=== PATIENT | female | born 1955 | race Caucasian/White ===

== ENCOUNTER → 2017-01-28 10:00 | Outpatient (CLI) | payer BC, SELFPAY ==
[2017-01-28 12:34] LABS: Absolute Lymphocyte Count 1.36 X10^3/ul (0.83-4.51); Absolute Neutrophil Count 2.6 X10^3/uL (2.0-7.7); Basophil# 0.05 X10^3/uL; Basophil% 1.1 % (0-1); Eosinophil# 0.09 X10^3/uL; Hematocrit 37.7 % (37-47); Hemoglobin 12.2 g/dl (12.0-15.0); Lymphocyte # 1.36 X10^3/ul (4.0); Lymphocyte % 30.2 % (19-41); Mean Corp Hgb Conc 32.4 g/gl (32-36); Mean Corpuscular Hgb 28.6 pg (27.0-32.0); Mean Corpuscular Volume 88.5 fL (81-99); Mean Platelet Vol. 11.8 fl (6.2-12.0); Monocyte# 0.37 X10^3/uL; Monocyte% 8.2 % (0-10); Neutrophil # 2.63 X10^3/uL (2.7-7.7); Neutrophil % 58.3 % (47-70); Platelet Count 242 K/mm3 (150-450); RBC Distribution Width CV 13.9 % (11.6-14.6); Red Blood Count 4.26 M/mm3 (4.2-5.4); White Blood Count 4.5 K/mm3 (4.4-11.0)
[2017-01-28 12:36] LABS: POSITIVE COUNT NO; POSITIVE DIFFERENTIAL NO; POSITIVE MORPHOLOGY NO
[2017-01-28 12:54] LABS: Anion Gap 6 (5-15); BUN 16 mg/dL (7-18); BUN/Creat Ratio 22.9 RATIO (10-20); Calcium,Total 8.8 mg/dL (8.5-10.1); Chloride 105 mmol/L (98-107); EST Glomerular Filtration Rate 91 mL/min (>60); Est Glom Filt Rate - Afr Amer 110 mL/min (>60); Glucose 88 mg/dL (70-110); Potassium 4.4 mmol/L (3.5-5.1); Sodium Level 139 mmol/L (136-145); Thyroid Stim Hormone (TSH) 0.61 uIU/mL (0.358-3.74)
--- OUTSIDE RECORDS SUMMARY | 2017-03-08 12:01 | XMS RPT_ITS ---
:1955 Author Organization OHIP Care Team Providers Name Role Phone LIONEL JENNINGS DPM Attending Unavailable PHYSICIAN, NONE Primary Care Unavailable LIONEL JENNINGS DPM Attending Unavailable MICHAELA SEAY~[id number], MICHAELA FELTON Referring Unavailable PHYSICIAN, NONE Primary Care Unavailable Micheal Martinez Attending Unavailable Micheal Martinez Primary Care Unavailable Lionel Jennings Attending Unavailable Micheal Martinez Primary Care Unavailable Micheal Martinez Attending Unavailable Micheal Martinez Primary Care Unavailable PROBLEMS PROBLEMS DATE TYPE CONDITION / CODE ATTENDING STATUS SOURCE 01/28/2017 Unknown R53.83 - Other Micheal Martinez Active [place] [facility] Community R53.83(ICD-10) Hospital Repository 01/28/2017 Unknown R06.00 - Dyspnea, Micheal Martinez Active [place] unspecified / Community R06.00(ICD-10) Hospital Repository 03/01/2017 Unknown Z98.890 - Other Lionel Jennings Active [facility] specified [facility]ced[facility] states / Repository Z98.890(ICD-10) 12/28/2016 Unknown ENCNTR SCREEN Micheal Martniez Active [facility] MAMMOGRAM FOR [facility] MALIGNANT NEOPLASM Hospital OF BREAST / Repository Z12.31(ICD-10) PROCEDURES PROCEDURES No Procedure Records FoundRESULTS RESULTS CBC W/DIFF, AUTOMATED Collected: 01/28/2017 Status: F Source: ARIK 9:05 AM [facility] REPOSITORY TYPE CODE TESTS RESULT OUT OF RANGE REFERENCE UNITS LAB L100.1000 Normal 4.4-11.0 K/mm3 WBC 4.5 LAB L100.1200 Normal 4.2-5.4 M/mm3 RBC 4.26 LAB L100.1300 Normal 12.0-15.0 g/dl HGB 12.2 LAB L100.1400 Normal 37-47 % HCT 37.7 LAB L100.1500 Normal 81-99 fL MCV 88.5 LAB L100.1600 Normal 27.0-32.0 pg MCH 28.6 LAB L100.1700 Normal 32-36 g/gl MCHC 32.4 LAB L100.1810 Normal 11.6-14.6 % RDW 13.9 CV LAB L100.1820 High 35.1-43.9 fl RDW 44.0 SD LAB L100.1900 Normal 150-450 K/mm3 PLT 242 LAB L100.2000 Normal 6.2-12.0 fl MPV 11.8 LAB L100.2100 Normal 47-70 % NEUT% 58.3 LAB L100.2200 Normal 19-41 % LY% 30.2 LAB L100.2300 Normal 0-10 % MONO% 8.2 LAB L100.2400 Normal 0-5 % EO% 2.0 LAB L100.2500 High 0-1 % BASO% 1.1 LAB L100.2550 Normal 0.0-0.9 % IM 0.200 GRAN % Result Comment: IG% - Immature Granulocytes (promyelocytes, myelocytes andmetamyelocytes) > 1% indicates that a LEFT SHIFT is Present. LAB L100.2620 Normal 2.0-7.7 X10 3/uL Absolute Neut 2.6 LAB L100.2720 Normal 0.83-4.51 X10 3/ul Absolute Lymph 1.36 Performed By: #### L100.0100 ####[facility] [address] [facility]. [place], [place], [id number] BASIC METABOLIC Collected: 01/28/2017 Status: F Source: ARIK PROFILE (BMP) 9:05 AM [facility] REPOSITORY TYPE CODE TESTS RESULT OUT OF RANGE REFERENCE UNITS LAB L501.0100 Normal 70-110 mg/dL GLU 88 LAB L501.1000 Normal 7-18 mg/dL BUN 16 LAB L501.1100 Normal 0.55-1.02 mg/dL 0.70 CREAT,SERUM Result Comment: The validity of the calculated GFR AND GFRAA in patients over70 years has not been determined. Clinical correlation isessential. LAB L501.1110 Normal >60 mL/min EST GFR 91 Result Comment: Non- GFR Calc LAB L501.1115 Normal >60 mL/min EST GFR - 110 AA Result Comment: GFR Calc LAB L501.1300 High 10-20 RATIO BUN/CRE 22.9 LAB L501.2200 Normal 8.5-10.1 mg/dL CA 8.8 LAB L501.5300 Normal 136-145 mmol/L NA 139 LAB L501.5600 Normal 3.5-5.1 mmol/L K 4.4 LAB L501.5900 Normal 98-107 mmol/L CL 105 LAB L501.6100 Normal 21.0-32.0 mmol/L CO2 28.0 LAB L501.6200 Normal 5-15 GAP 6 Performed By: #### L500.2500, L501.9520 ####[facility] [address] [place], [address] THYROID STIM HORMONE Collected: 01/28/2017 Status: F Source: ARIK (TSH) 9:05 AM [facility] REPOSITORY TYPE CODE TESTS RESULT OUT OF RANGE REFERENCE UNITS LAB L501.9520 Normal 0.358-3.74 uIU/mL TSH 0.61 Performed By: #### L500.2500, L501.9520 ####[facility] [address] [facility] [place], [place], [id number] RE-EVALUATION - PT (1) Observed: 12/29/2016 Status: F Source: ARIK 4:10 PM [facility] RE[facility]ITORY [facility] [address], [place] [phone] [phone] FaxREEVALUATION / MEDICARE RECERTIFICATIONPHYSICAL THERAPYMR#: [id number] Acct: [id number]: CHERYL CHEN Rep #: [id number]: 1955 61 From: Francisca Mendes MPTReferring DrYesi: Lionel Jennings DPM Status: REG RCRInsurance: Antonio Jennings,It has been my pleasure to treat CHERYL CHEN over the last 13 visits for S/P Lapidusfusion L September 03, 2016.Please see the progress note below for an update on the physical therapy plan of care!Subjective: Pt has worked the last 2 days and came in walking with a mjor antalgic gait. Ptreports that she is tired. Pt wants to see how she does over the next week or so and decide ifshe wants to do additional PT.Objective/Function: Gait: Pt walked into Dept with major antalgic gait on the R with increaseinsteppage gait and decrease stride length. R ankel AROM: 6 degrees DF and 30 degrees PF.Increase swelling noted on the lateral side of ptsR footPlanPlan: Pt to call in if she feels she needs PT. Pt to continue with her HEP for which we issueda green band to increase her exercises. Advised pt to possibly wearsupport stockings at workdue to the increase in swelling. Pt will call in regardless at 2 week mateo for DC if she feelsshe is all betterGoalsGoal 1:: I HEPGoal Time Frame: 4-6 WeeksGoal Progress: Goal MetGoal 2:: Increase R ankle AROM to 5 degrees DF and 50 degrees PFGoal Time Frame: 4-6 WeeksGoal Progress: ProgressingGoal 3:: Be able to walk with R great toe push off and equal stance time on B LE's.Goal Time Frame : 4-6 WeeksGoal Progress: ProgressingGoal 4:: No pain with gait or ADL'sGoal Time Frame: 4-6 WeeksGoal Progress: ProgressingAnticipated InterventionsPatient/Client Instruction: Educate patient on: Condition, Plan of CareFor the Purpose of:: To decrease pain, To decrease swelling/inflammation, To increase ROM, Toimprove nutrient delivery to tissue, To improve muscle performance and motor function, Toimprove ability to perform ADL's, To increase tolerance to activity/condition/position, Toimprove performance and independence with ADL's, To decrease level of supervision to performtasks, To improve ability of physical actions for home/community/work/leisure, To improve gaitand locomotor functions, To improve health of tissue, To decrease soft tissue restriction, Toincrease flexibility/ROMTherapeutic Exercise to Include: Strength training, Balance training, Flexibilty training, Gaitand locomotor training, Neuromotor development, Passive ROM, Active ROMFor the Purpose of:: To decrease pain, To decrease swelling/ inflammation, To increase ROM, Toimprove nutrient delivery to tissue, To improve muscle performance and motor function, Toimprove ability to perform ADL's, To increase tolerance to activity/condition/position, Toimprove performance and independence with ADL's , To decrease level of supervision to performtasks, To improve ability of physical actions for home/community/work/leisure, To improve gaitand locomotor functions, To improve health of tissue, To decrease soft tissue restriction, Toincrease flexibility/ ROM, To improve balance, To improve safety with gaitFunctional Training to Include: Gait trainingFor the Purpose of:: To improve gait and locomotor functions, To improve safety with gaitManual Therapy Techniques to Include: Passive ROM, Soft tissue mobilizationFor the Purpose of:: To increase ROM, To improve nutrient delivery to tissue, To improve muscleperformance and motor function, To improve ability of physical actions forhome/community/work/leisure, To improve gait and locomotor functions, To decrease soft tissuerestriction, To increase flexibility/ ROMThermo therapy (hot pack): YesUltrasound (thermal/non thermal): YesFor the Purpose of: : To decrease pain, To decrease swelling/inflammation, To increase ROM, Toimprove nutrient delivery to tissuePlease do not hesitate to contact me at [phone] by phone or if you havequestions or concerns regarding this new plan of care!Sincerely,Francisca Mendes<Electronically signed by Francisca Mendes MPT> 12/29/16 1610CC: Lionel Jennings DPM; Micheal Martinez DT: 12/28/16SSignedFor Medicare only, by signing this I certify the plan of care. Physicians Signature Date INITAL EVALUATION (1) Observed: 11/26/2016 Status: F Source: ARIK - PT 3:52 PM [facility] REPOSITORY [facility] [address] [facility]. [address] [place] [address] [phone] [phone] FaxREHABILITATION SERVICESINITIAL EVALUATIONMR#: [id number] Acct: [id number]: GUSTAVOCHERYL Anthony Rep #: [id number]: 1955 61 From: Francisca Mendes MPTReferring Dr.: Lionel Jennings DPEmmie Status: REG RCRInsurance: ANTHEMPatient's Visit InformationDARSTEFANYRaj CHEN is a 61 year old F referred to Physical Therapy by Lionel Jennings with adiagnosis of S/P Lapidus fusion L September 03, 2016.Date of Evaluation: 11/26/16Physical Therapist: Francisca Mendes- Visit PlanFrequency: 3x / WeekDuration: 4-6 WeeksPlan: 3X/ week for 4-6 weeks for R ankle and great toe AROM/PROM, gait training, strengthening,balance and propiroception with HEP and modalities PRN- SubjectiveSubjective: Pt had a bunion surgery and she was not allowed to be on it for 2 months at all.From 2 months post op till today she has been in the boot. said Tuesday to get our of theboot. He wants PT to get the swelling down. Surgery was 3 mo ago today. She had to keep herfoot up for 2 months. Her foot is so swollen she can not fit into her own shoes. said thatnasim can come out of her boot but she can not walk in other shoes. She is not noticing theswelling going down at all. She has a hard time sleeping cause the back ofher heel is swollenand it keeps her up at night. She works at [employer] for 8 hour shifts.- Pain R ankle painPain Intensity (Out of 10): 10Pain Intensity Range: 10- ObjectiveGait: Walks on R heel with no toe push off. R ankle AROM: -4 degrees DF and 32 degrees PF,INV 22 degrees, EV 2 degrees. Very little movement R great toe... Increased discomfort with Rgreat toe flex and extension PROM. Tight gastroc complex on the R. Increase general ankleswelling noted especially on the R lateral ankle- GoalsGoal 1:: I HEPGoal Time Frame: 4-6 WeeksGoal 2:: Increase R ankle AROM to 5 degrees DF and 50 degrees PFGoal Time Frame: 4-6 WeeksGoal 3:: Be able to walk with R great toe push off and equal stance time on B LE's.Goal Time Frame: 4-6 WeeksGoal 4:: No pain with gait or ADL'sGoal Time Frame: 4-6 Weeks- Rehabilitation PotentialRehabilitation Potential: Good- Anticipated InterventionsPatient/Client Instruction: Educate patient on: Condition, Plan of CareFor the Purpose of:: To decrease pain, To decrease swelling/inflammation, To increase ROM, Toimprove nutrient delivery to tissue, To improve muscle performance and motor function, Toimprove ability to perform ADL 's, To increase tolerance to activity/condition/position, Toimprove performance and independence with ADL's, To decrease level of supervision to performtasks, To improve ability of physical actions for home/community/work/leisure, To improve gaitand locomotor functions, To improve health of tissue, To decrease soft tissue restriction, Toincrease flexibility/ROMTherapeutic Exercise to Include: Strength training, Balance training, Flexibilty training, Gaitand locomotor training, Neuromotor development, Passive ROM, Active ROMFor the Purpose of:: To decrease pain, To decrease swelling/inflammation, To increase ROM, Toimprove nutrient delivery to tissue, To improve muscle performance and motor function, Toimprove ability to perform ADL's, To increase tolerance to activity/condition/position, Toimprove performance and independence with ADL's, To decrease level of supervision to performtasks, To improve ability of physical actions for home/community/work/ leisure, To improve gaitand locomotor functions, To improve health of tissue, To decrease soft tissue restriction, Toincrease flexibility/ROM, To improve balance, To improve safety with gaitFunctional Training to Include: Gait trainingFor the Purpose of:: To improve gait and locomotor functions, To improve safety with gaitManual Therapy Techniques to Include: Passive ROM, Soft tissue mobilizationFor the Purpose of:: To increase ROM, To improve nutrient delivery to tissue, To improve muscleperformance and motor function, To improve ability of physical actions forhome/community/work/leisure , To improve gait and locomotor functions, To decrease soft tissuerestriction, To increase flexibility/ROMThermo therapy (hot pack): YesUltrasound (thermal/non thermal): YesFor the Purpose of:: To decrease pain, To decrease swelling/inflammation, To increase ROM, Toimprove nutrient delivery to tissueThank you for the opportunity to evaluate your patient.For Medicare and Medicare HMO plans, please review the plan of care and approve it.It will need to be FAXED BACK to us at [phone] for Medicare purposes.Please let me know if there are questions or concerns regarding this plan of care.Physician Signature: Date: &lt ;Elect ronically signed by Francisca Mendes MPT> 11/26/16 1552CC: Lionel Jennings DPM; Micheal Martinez DT: 11/26/16SSignedFor Medicare only, by signing this I certify the plan of care. Physicians Signature Date SCREENING MAMM (CAD), Observed: 09/02/2016 Status: F Source: ARIK BILAT 2:23 PM [facility] [id number] [id number] 4dSCREENING MAMM (CAD), BILATMR#: [id number] Acct: [id number]: CHERYL CHEN Rep #: [id number]: 1955 F 61 From: Dexter Ferreira MDPCP: Micheal Martinez Status : REG CLIStudy: SCREENING MAMM (CAD), BILAT Date of Exam: 09/02/16Exam# [id number] Ordering Dr: Micheal Martinez MDMAMMOGRAPHY - BILATERAL SCREENINGREASON FOR EXAM: Female, 61 years old. Routine annual screeningexamination.PERTINENT HISTORY: Left breast swelling and bruising.TECHNIQUE: Digital bilateral breast raine (3D mammographic acquisition) inthe CC and MLO projections. 2-D mediolateral oblique (MLO) and craniocaudad(CC) views of both breasts were obtained. CAD: Full Field DigitalMammography with Computer Added Detection was performed.COMPARISON : Comparison is made with prior study dated April 08, 2015 andFebruary 2014. FINDINGS:Breast Composition: The breasts are heterogeneously dense, which mayobscure small masses.There are no dominant masses or suspicious calcifications.No other significant abnormalities are identified. There has been nosignificant change since the prior study. ORDER #: [id number] HPBI/SCREENING MAMM (CAD), BILATIMPRESSION:Stable bilateral screening mammogram. Yearly follow-up mammogramrecommended. (A) ASSESSMENT CATEGORY:BIRADS Category 1: Negative. A letter regarding these results will besent to the patient by the facility within 30 days.Approximately 10% of breast cancers are not detected by mammography. Anormal mammogram should not delay biopsy of a clinically suspiciousabnormality.[id number] Signed:Dexter Ferreira MD at 16:06 Brittani [phone], Service support , MR: Micheal Martinez Vp Software Engineering:Signed CBC Collected: 08/24/2016 Status: F Source: [facility] 3:35 PM [facility] REPOSITORY TYPE CODE TESTS RESULT OUT OF REFERENCE UNITS RANGE LAB WBC(LOINC) 4.60-10.80 10 3/mcL WBC 6.70 LAB RBCCT(LOINC 4.20-5.40 10 6/mcL ) RBC 4.63 LAB HGB(LOINC) 12.0-16.0 G/dL Hgb 12.9 LAB HCT(LOINC) 37.0-47.0 % Hct 39.3 LAB MCV(LOINC) 80.0-94.0 fL MCV 85.0 LAB MCH(LOINC) 27.0-31.2 pg MCH 27.9 LAB MCHC(LOINC) Low 33.0-37.0 G/dL MCHC 32.9 LAB RDW(LOINC) 11.5-14.5 % RDW 14.1 LAB PLT(LOINC) 130-400 10 3/mcL Platelet 234 LAB MPV(LOINC) 7.4-10.4 fL MPV 10.3 Performed By: #### CBC, ADIFF, ANEU, BMP, GFR ####[facility] [address] [place] [address] .AUTO DIFF Collected: 08/24/2016 Status: F Source: [facility] 3:35 PM [facility] REPOSITORY TYPE CODE TESTS RESULT OUT OF REFERENCE UNITS RANGE LAB HARRY(LOINC) 37.0-80.0 % Neutrophil % 62.4 LAB LYM(LOINC) 10.0-50.0 % Lymphocyte % 28.6 LAB MON(LOINC) 1.7-13.0 % Monocyte % 6.7 LAB EO(LOINC) 0.0-7.0 % Eosinophil % 1.4 LAB BAS(LOINC) 0.0-2.5 % Basophil % 0.9 LAB ABLYM(LOIN 0.77-3.85 10 3/mcL C) Lymphocyte, 1.90 Absolute LAB ENRRIQUE(LOINC 0.15-1.00 10 3/mcL ) Monocyte, 0.40 Absolute LAB AEOS(LOINC 0.00-0.40 10 3/mcL ) Eosinophil, 0.10 Absolute LAB ABAS(LOINC 0.00-0.19 10 3/mcL ) Basophil, 0.10 Absolute Performed By: #### CBC, ADIFF, ANEU, BMP, GFR ####[facility] [address] [place], [place] [address] .NEUABS Collected: 08/24/2016 Status: F Source: [facility] 3:35 PM [facility] REPOSITORY TYPE CODE TESTS RESULT OUT OF REFERENCE UNITS RANGE LAB ANEU(LOINC) 2.85-6.16 10 3/mcL 4.10 Neutrophil, Absolute Performed By: #### CBC, ADIFF, ANEU, BMP, GFR ####[facility] [address] [place], [place] [address] BMP Collected: 08/24/2016 Status: F Source: [facility] 3:35 PM [facility] REPOSITORY TYPE CODE TESTS RESULT OUT OF REFERENCE UNITS RANGE LAB 1547-9 70-105 mg/dL GLUCOSE 90 LAB NA(LOINC) 136-146 mEq/L Sodium Level 141 LAB K(LOINC) 3.5-5.1 mEq/L Potassium Level 4.6 LAB CL(LOINC) 98-107 mEq/L Chloride 104 LAB CO2(LOINC) 22-29 mEq/L CO2 28 LAB EBAL(LOINC mEq/L ) Electrolyte 9.0 Balance LAB BUN(LOINC) 7.0-18.0 mg/dL BUN 13.2 LAB CRE(LOINC) 0.6-1.2 mg/dL Creatinine Lvl 0.9 (s) LAB BC(LOINC) 7-27 ratio BUN/Creatinine 15 Ratio LAB CA(LOINC) 8.4-10.2 mg/dL Calcium Lvl 9.4 Performed By: #### CBC, ADIFF, ANEU, BMP, GFR ####[facility] [address] [place], [place] [address] GFR Collected: 08/24/2016 Status: F Source: [place] 3:35 PM [facility] REPOSITORY TYPE CODE TESTS RESULT OUT OF REFERENCE UNITS RANGE LAB GFRAA(LOINC ml/min/1.73 ) GFR 83 sqm Result Comment: GFR Population mean for , Non- Americans Ages 20-90=317 mL/min/1.73 sq.m. Ages 30-03=015 mL/min/1.73 sq.m. Ages 40-49=99 mL/min/1.73 sq.m. Ages 50-59=93 mL/min/1.73 sq.m. Ages 60-69=85 mL/min/1.73 sq.m. Ages 70+=75 mL/min/1.73 sq.m.Chronic Kidney Disease: Less than 60 mL/min/1.73 square metersEnd Stage Renal Disease: Less than 15 mL/min/1.73 square meters LAB GFRNO(LOINC) ml/min/1.73sqm GFR Non- >60 Result Comment: GFR Population mean for , Non- Americans Ages 20-54=188 mL/min/1.73 sq.m. Ages 30-55=365 mL/min/1.73 sq.m. Ages 40-49=99 mL/min/1.73 sq.m. Ages 50-59=93 mL/min/1.73 sq.m. Ages 60-69=85 mL/min/1.73 sq.m. Ages 70+=75 mL/min/1.73 sq.m.Chronic Kidney Disease: Less than 60 mL/min/1.73 square metersEnd Stage Renal Disease: Less than 15 mL/min/1.73 square meters Performed By: #### CBC, ADIFF, ANEU, BMP, GFR ####[facility] [address] [place], [place] [address] ALLERGIES ALLERGIES DATE TYPE / CODE NAME / CODE REACTION SEVERITY SOURCE 09/23/2014 Drug No Known Unknown [facility] Allergy/4160 Allergies/F00 Hospital 32944(SNOMED 3091577(RXNOR Repository CT) M) 09/23/2014 Drug No Known [facility] Allergy/4160 Allergies/F00 Hospital 85352(SNOMED 3093140(RXNOR Repository CT) M) ENCOUNTERS ENCOUNTERS ADMIT/DISCHARGE ACCOUNT NUMBER ADMITTING ENCOUNTER LOCATION SOURCE CLASS 01/28/2017 [id number] Ambulatory [place] [facility] ding:BFHLAB Repository 11/26/2016/12/29/19 [id number] Amb[place] [facility] ding:PT Repository 09/03/2016/09/04/19 [id number] Ambulatory BBuilding:OS Beat[facility] [address] [place] [address]: Health 0001Bed: B Foundation Repository 09/02/2016 [id number] Ambulatory [place] [facility] ding:BI Repository 08/24/2016/08/25/19 [id number] Ambulatory [place] [address] ding:OPRS Foundation Repository PAYERS PAYERS ENCOUNTER GUARANTOR PAYER SUBSCRIBER SOURCE 01/28/2017 Cheryl E Primary Cheryl E [place] [id number] Insurance:ANTHEMPolicy HintonDOB[facility] Number: [id number] [id number] Repository [address]Rvw: (330) Date:4349-20-26XW [phone] () [id number] [place] [address] 274[address]HP: 01/28/2017 Secondary NOT GIVENUNK [place] Insurance:SELF PAY [facility] Number: Effective Repository Date:2017-01-28 11/26/2016 CHERYL E Primary CHERYL E [place] [id number] Insurance:ANTHEMPolicy HINTONDOB: [facility] Number: [id number], [place] [id number] Repository [address]Eqz: (330) Date:7972-87-97TL [phone] () [id number] [place] [address] 08[address]HD: 09/03/2016 CHERYL E Primary CHERYL E [facility] HINTONDOB: Insurance:ANTHEM BLUE HINTONDOB: [facility] [id number] [facility] [id number] Repository SAGE Number: [address], [place] [id number] [place], [place] [address]Yeh: (000) Date:2016-09-01 55[address]Tsb: () [id number] [id number] Name:BPO BOX (HP)Tel: [phone], [place] [phone] () 796[address]XI: 09/02/2016 CHERYL E Primary CHERYL E [place] [id number] [facility] HINTONDOB: [facility] SAGE Number: [id number], [place] [id number] Repository [address]Gby: (330) Date:0972-63-71JL [phone] () [address] [place] [address]SS: 08/24/2016 CHERYL E Primary CHERYL E [facility] HINTONDOB: Insurance:[facility] HINTONDOB: [facility] [id number] [facility] [facility] [id number] Repository SAGE Number: [address], [place] [id number] [place], [place] [address]Fsc: (000) Date:2016-08-21 15484Fcs: () [id number] 000-0000 Name:BPO BOX (HP)Tel: [phone], [place] [phone] () [address]HR:
== END ==
PROVIDERS: Family Provider Family Medicine; PCP Family Medicine; Visit Provider Family Medicine
DX: R06.00 Dyspnea, unspecified (principal); R53.83 Other fatigue
CPT/HCPCS: 36415; 80048; 84443; 85025

== ENCOUNTER 2017-09-22 12:19 | Inpatient (IN) | payer BC, SELFPAY ==
[2017-09-22] VITALS (31 sets, daily range): BP systolic 83–126; BP diastolic 46–85; PULSE 57–158; RESP 14–24; TEMP 36.6–37.3; O2SAT 95–99; BMI 23.3; BMI 23.4; BMI 23.8
[2017-09-22 12:56] LABS: Absolute Lymphocyte Count 2.49 X10^3/ul (0.83-4.51); Absolute Neutrophil Count 6.3 X10^3/uL (2.0-7.7); Basophil# 0.05 X10^3/uL; Basophil% 0.5 % (0-1); Eosinophil# 0.06 X10^3/uL; Eosinophils% 0.6 % (0-5); Hematocrit 45.2 % (37-47); Lymphocyte # 2.49 X10^3/ul (4.0); Mean Corp Hgb Conc 33.2 g/gl (32-36); Mean Corpuscular Hgb 29.1 pg (27.0-32.0); Mean Corpuscular Volume 87.6 fL (81-99); Mean Platelet Vol. 11.1 fl (6.2-12.0); Monocyte# 0.66 X10^3/uL; Monocyte% 6.9 % (0-10); Neutrophil # 6.31 X10^3/uL (2.7-7.7); Neutrophil % 65.8 % (47-70); POSITIVE COUNT NO; POSITIVE DIFFERENTIAL NO; POSITIVE MORPHOLOGY NO; Platelet Count 317 K/mm3 (150-450); RBC Distribution Width CV 13.7 % (11.6-14.6); Red Blood Count 5.16 M/mm3 (4.2-5.4); White Blood Count 9.6 K/mm3 (4.4-11.0)
[2017-09-22 13:08] LABS: Anion Gap 10 (5-15); BUN 15 mg/dL (7-18); BUN/Creat Ratio 18.1 RATIO (10-20); Calcium,Total 9.1 mg/dL (8.5-10.1); Chloride 104 mmol/L (98-107); Creatinine, Serum 0.83 mg/dL (0.55-1.02); EST Glomerular Filtration Rate 75 mL/min (>60); Est Glom Filt Rate - Afr Amer 90 mL/min (>60); Estimated Creatinine Clearance 67.48 ml/min; Glucose 93 mg/dL (74-106); Potassium 3.8 mmol/L (3.5-5.1); Sodium Level 141 mmol/L (136-145)
--- NOTE | 2017-09-22 13:31 | ED.VISSUMM ---
- ER Visit Summary Date of Service: 09/22/17 Chief Complaint: Palpitations History of Present Illness: The patient is a 62 F with palpitations for the past 2-3 days, at least 48 hours straight. She has some intermittent chest pain with this. She was seen by her PCP who found that she is in a flutter. Patient does not feel palpitations, however she does feel jittery. Physical Examination: Not appear in acute distress. Moist mucous membranes, no obvious facial deformity No C-spine tenderness supple neck. Regular rate and tachycardic without any obvious murmurs Clear lungs bilaterally speaking in full sentences without any obvious respiratory distress Abdomen soft and nontender no guarding or rebound Moves all extremities without any difficulty or pain. Skin does not show any obvious rashes or lesions, no trauma. Alert oriented ?3 with no gross focal deficit Emergency Department Course and Treatment: She had a slight troponin leak, this is likely secondary to heart rate. I discussed with cardiology, beta-france were given however this did not improve the heart rate, Cardizem was then given and a Cardizem drip will be started. Patient will be admitted for further workup. I cannot cardiovert her, her symptoms have been ongoing for 2-3 days I am worried about an atrial clot. I will let the hospital decide between low molecular weight heparin and regular heparin. Admit in guarded condition Impression: Atrial flutter. This note was generated with [employer] dictation software. It may contain incorrect words, spelling, and punctuation that were not noted in review of the chart prior to signing ED Disposition - Plan for ED Patient: Chief Complaint: Palpitations Referrals: Micheal Martinez MD [Primary Care Provider] -
--- NOTE | 2017-09-22 14:02 | NURSING ---
DR NEREIDA HU
--- NOTE | 2017-09-22 14:04 | NURSING ---
DR PADRON IN ER
--- NOTE | 2017-09-22 14:21 | NURSING ---
UNABLE TO PULL OLD EKGS, MUSE IS DOWN
--- NOTE | 2017-09-22 14:23 | NURSING ---
PCU AFLUTTER CORNICI
--- NOTE | 2017-09-22 14:29 | NURSING ---
Lul notified patient may transfer to PCU.
--- NOTE | 2017-09-22 14:52 | PCM.HP.STD ---
Problem List (1) Paroxysmal atrial fibrillation Status: Chronic (2) H/O tubal ligation Status: Resolved (3) Nonrheumatic mitral valve disorder Status: Chronic (4) Tricuspid valve disorder Status: Chronic (5) History of aortic valve disorder Status: Chronic (6) Sleep apnea Status: Chronic (7) Parkinson's disease Status: Chronic (8) Atrial fibrillation with RVR Status: Acute History of Present Illness Date of Admission: 09/22/17 Chief Complaint: Chest pain and A. fib The patient is a 62 year old F with history of sleep apnea on CPAP, Parkinson disease and history of paroxysmal A. fib, widely 1 episode in September 2014 for which she was admitted came to ER for flutter wave sensation for 3 days. Initially, she felt dizzy, lightheaded, strange and chest pain 2 times each lasted for about half an hour on past 2 days and when she went to see her PCP she was found to have A. fib with RVR with heart rate in 160/min. She described chest pain on right-sided, sharp, localized without acid shortness of breath or relation with activity. She had echo done during first episode of A. fib on September 2014 which reported as EF 60% with normal LV systolic function, normal right and left atria. Normal RV size and systolic function. PSP 26 mmHg with 1+ TR. Mild MR, mild AR. The patient was started on IV Cardizem drip in the ER but she dropped her blood pressure in 90s. IV Cardizem drip was held and patient is on 1 L IV normal saline bolus. Digoxin 0.5 mg IV ordered. [] Past Medical History Past Medical History (Chronic Problems): Chronic Problems Paroxysmal atrial fibrillation (Chronic) Nonrheumatic mitral valve disorder (Chronic) Tricuspid valve disorder (Chronic) History of aortic valve disorder (Chronic) Sleep apnea (Chronic) Parkinson's disease (Chronic) Medical History: Medical History Nonrheumatic mitral valve disorder (Chronic) I34.9 Tricuspid valve disorder (Chronic) I07.9 History of aortic valve disorder (Chronic) Z86.79 New onset atrial fibrillation (Acute) I48.91 Allergies detergent Adverse Reaction (Severe, Uncoded 09/22/17 12:20) Respiratory problems Home Medications: Ambulatory Orders Medication Instructions Recorded rasagiline 0.5 mg tablet 0.5 mg PO DAILY 08/24/17 Aspirin 325 mg PO DAILY@0800 09/22/17 Carbidopa/Levodopa [Rytary ER 1 cap PO TID 09/22/17 23.75 mg-95 mg Cap] Surgical History: Surgical History (Last Updated 08/24/17 @ 16:07 by Brittaney Chambers) H/O tubal ligation (Resolved) Z98.51 Surgical History: - - Tubal ligation. 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 Father Hypertension History Items: - - Atrial fibrillation. Paternal Family History: Family History (Last Updated 08/24/17 @ 15:48 by Brittaney Chambers) Mother No problems noted. Father Hypertension History Items: Heart Disease, Hypertension Review of Systems Constitutional: Denies: Chills, Fever, Weight Change HEENT: Denies: Head Aches, Sinus Congestion, Sinus Drainage Cardiovascular: Reports: Chest Pain, Light Headedness, Palpitations Respiratory: Denies: Cough, Shortness of breath at rest, Sputum production Gastrointestinal: Denies: Abdominal Pain, Nausea, Vomiting Genitourinary: Denies: Dysuria Musculoskeletal: Denies: Joint Pain, Joint Tenderness Skin: Denies: Rash, Wounds Neurological: Reports: Balance problems. Denies: Focal weakness, Numbness, Tingling Psychiatric: Denies: Anxiety, Depression, Homicidal Ideations, Suicidal Ideations Hematologic/ Lymphatic: Denies: Easy Bruising, Easy Bleeding VTE Information - Inpt Only VTE Present on Admission: No VTE Mechan Device Prophylaxis: None VTE Pharm Prophylaxis ordered?: Yes Patient Problems: Active and Suspected Problems Atrial fibrillation with RVR (Acute) - Physical Exam General: Alert, Oriented x3, Cooperative HEENT: Atraumatic, PERRLA, EOMI, Normocephalic Neck: Supple, No JVD, Negative Carotid Bruits Lungs: Clear to auscultation, Normal air movement Cardiovascular: Regular rate, No murmurs, Irregular Rate Abdomen: Bowel Sounds Present, Soft, Non Tender, Non-Distended Extremities: No edema, Capillary Refill Less than 3 Seconds Skin: No rashes, No breakdown Musculoskeletal: No Tenderness to Palpation of Joints or Extremities, Arthritic Changes Neurological: Cranial nerves II-XII grossly intact Psych/Mental Status: Normal Affect, Appropriate Vital Signs Temp Pulse Resp BP Pulse Ox 97.9 F 158 H 21 H 91/65 98 09/22/17 12:20 09/22/17 12:22 09/22/17 12:20 09/22/17 14:15 09/22/17 12:20 Assessment/Plan All Active Problems (Last Updated 08/24/17 @ 16:07 by Brittaney Chambers) Atrial fibrillation with RVR (Acute) H/O tubal ligation (Resolved) The patient is a 62 year old F with history of sleep apnea on CPAP, Parkinson disease and history of paroxysmal A. fib, widely 1 episode in September 2014 for which she was admitted came to ER for flutter wave sensation for 3 days. Initially, she felt dizzy, lightheaded and chest pain 2 times each lasted for about half an hour on past 2 days and when she went to see her PCP she was found to have A. fib with RVR with heart rate in 160/min. She described chest pain on right-sided, sharp, localized without acid shortness of breath or relation with activity. She had echo done during first episode of A. fib on September 2014 which reported as EF 60% with normal LV systolic function, normal right and left atria. Normal RV size and systolic function. PSP 26 mmHg with 1+ TR. Mild MR, mild AR. The patient was started on IV Cardizem drip in the ER but she dropped her blood pressure in 90s. IV Cardizem drip was held and patient is on 1 L IV normal saline bolus. Digoxin 0.5 mg IV ordered. [] 1. Paroxysmal A. fib with RVR with hypotension: She has risk factors of obstructive sleep apnea for which she is compliant with CPAP. [id number] score is 1 of being female. She is being admitted on the stepdown unit. Cardiac monitoring. Cardiology is consulted. Cycle cardiac enzymes. Digoxin 0.5 mg IV 1 dose given. At further for cardiology input. IV fluid normal saline 1 L bolus and then 150 mL/h. Monitor input and output. On Lovenox 1 mg/kg body weight 2. Obstructive sleep apnea on CPAP: Maintain CPAP at night, she is not sure of exact pressure of CPAP 3. Parkinson disease: Continue home medications including Sinemet and rasagiline 4. Mild valvular heart disease: As per the echo she has mild MR, mild AR and mild TR. 5. DVT prophylaxis: On therapeutic dose of enoxaparin 1 mg/kg body weight This note was generated with [employer] dictation software. Every effort was made to ensure accuracy, however computerized x ray service engineer mistakes may persist. Code Visit Inpatient E&M: 99202 Init Hosp L3
[2017-09-22] MEDS: Digoxin 250 MCG/ML Ampul 500 MCG IV (15:15)
[2017-09-22] MEDS: 0.9% Normal Saline 1,000 ML 150 ML IV (15:25)
[2017-09-22] MEDS: CLARIFY ORDER NOTE (15:56)
[2017-09-22] MEDS: Metoprolol Tartrate 5 MG/5 ML Vial 2.5 MG IV ×2 (16:23→16:48)
[2017-09-22] MEDS: Enoxaparin 80 MG/0.8 ML Syringe 70 MG SC (16:23)
[2017-09-22 16:43] LABS: AST(SGOT) 11 U/L (15-37); Alanine Aminotransfer ALT/SGPT 8 U/L (13-56); Alkaline Phosphatase 88 U/L (45-117); Bilirubin, Direct 0.11 mg/dL (0.00-0.30); Globulin 4.2 g/dL (2.2-4.2); Magnesium 2.3 mg/dL (1.6-2.6); Protein, Total 8.2 g/dL (6.4-8.2)
--- NOTE | 2017-09-22 17:05 | PCM.CONS.C ---
Reason for Consult Date of Consultation: 09/22/17 Reason for Consultation: Palpitations. History of Present Illness: The patient is a 62 year old F with history of sleep apnea on CPAP, Parkinson disease and history of paroxysmal A. fib, who presented to her primary physician's office complaining of palpitations. An echocardiogram was done and she was noted to be in atrial flutter with a rapid ventricular response rate. She was sent to the emergency room and an EKG was done there which confirmed that as well. She was given intravenous beta-france and Cardizem with some reduction in her blood pressure. She was being admitted for cardiology to follow-up. She previously had no history of obstructive coronary disease but she did have at least one episode of atrial fibrillation flutter in 2015. An echocardiogram that was performed this year demonstrated preserved ejection fraction with mild mitral tricuspid and aortic regurgitation. She denies any chest pain or paroxysmal nocturnal dyspnea no pedal edema. She has really been on no medications. Past Medical History Allergies/Adverse Reactions: Allergies detergent Adverse Reaction (Severe, Uncoded 09/22/17 12:20) Respiratory problems Home Medications: Ambulatory Orders Medication Instructions Recorded rasagiline 0.5 mg tablet 0.5 mg PO DAILY 08/24/17 Aspirin 325 mg PO DAILY@0800 09/22/17 Carbidopa/Levodopa [Rytary ER 1 cap PO TID 09/22/17 23.75 mg-95 mg Cap] Past Medical History (Chronic Problems): Chronic Problems Paroxysmal atrial fibrillation (Chronic) Nonrheumatic mitral valve disorder (Chronic) Tricuspid valve disorder (Chronic) History of aortic valve disorder (Chronic) Sleep apnea (Chronic) Parkinson's disease (Chronic) Surgical History: - - Tubal ligation. 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 Father Hypertension History Items: - - Atrial fibrillation. Paternal Family History: Family History (Last Updated 08/24/17 @ 15:48 by Brittaney Chambers) Mother No problems noted. Father Hypertension History Items: Heart Disease, Hypertension Smoking Status: Never smoker Alcohol: None Drugs: None Review of Systems - Review of Systems General: Denies: Fever, Night Sweats, Fatigue Cardiovascular: Reports: Palpitations. Denies: Chest Discomfort, Shortness of Breath, Orthopnea, PND, Peripheral Edema, Lightheadedness, Dizziness, Near Syncope, Syncope Respiratory: Denies: Cough, Sputum Production, Hemoptysis Gastrointestinal: Denies: Hematemesis, Hematochezia, Melena Genitourinary: Denies: Dysuria, Hematuria Skin: Denies: Rash Subjectve: Pleasant lady in no apparent distress. Mildly apprehensive. Objective: Vital Signs Temp Pulse Resp BP Pulse Ox 98.3 F 154 H 21 H 112/85 H 96 09/22/17 16:00 09/22/17 16:57 09/22/17 16:45 09/22/17 16:57 09/22/17 16:45 Oxygen Delivery Method Room Air Weight: 147 lb 7.828 oz Body Mass Index (BMI) 23.8 General: Awake, Alert, Oriented x 3 HEENT: PERRL, EOMI, Sclera Non Icteric Neck: Supple, Good ROM, No Lymph Node Enlargement Lungs: Clear to auscultation Cardiovascular: Regular Rhythm, Normal S1, Normal S2, No Murmurs, No Rubs, No Gallops Vascular: No Carotid Bruits, Normal Femoral Pulses, Normal Radial Pulses, Normal Dorsalis Pedal Pulse, Normal Posterior Tibial Pulses Abdomen: Bowel Sounds Present, Soft, Non Tender, No HSM, No Organomegaly Extremities: No Cyanosis, No Clubbing, No edema Neurological: No Focal Motor or Sensory Deficit 09/22/17 15:33: Magnesium 2.3, Total Bilirubin 0.50, Direct Bilirubin 0.11 09/22/17 15:33: Troponin I 0.186 H Rhythm: EKG: Atrial flutter with a rate of approximately 158 bpm. Assessment/Plan 1. Atrial flutter with a rapid ventricular response rate with a 2-1 conduction. Patients presents with atrial flutter the duration of which is not clear at this time. She appears to be resistant to intravenous beta-france as well as calcium channel france and my recommendation would be to anticoagulate her with Eliquis, and try and slow her down with intravenous amiodarone. I would recommend a ANGELIC guided cardioversion approach within the next 24 hours. I have discussed this with her and her family the risk benefits and alternatives they understand and agreed to proceed. Thank you for allowing me to participate in the care of your patient. Please don't hesitate to call if any issues arise
[2017-09-22] MEDS: Morphine 2 MG/ML Syringe IV (19:51)
[2017-09-22] MEDS: Ondansetron 4 MG/2 ML Vial IV (19:51)
[2017-09-22] MEDS: 0.9% NaCl Peripheral Flush Adult/Peds IV (19:52)
[2017-09-22] MEDS: CARBIDOPA/LEVODOPA 1 EACH CAPSULE.ER PO (21:42)
[2017-09-22] MEDS: APIXABAN 5 MG TABLET PO (21:42)
[2017-09-23 01:50] VITALS: BP 97/51; PULSE 64; RESP 16; TEMP 36.7; O2SAT 97
[2017-09-23 03:00] VITALS: PULSE 59
[2017-09-23] MEDS: 0.9% Normal Saline 1,000 ML 60 ML IV (05:15)
[2017-09-23] MEDS: CARBIDOPA/LEVODOPA 1 EACH CAPSULE.ER PO (05:15)
[2017-09-23 06:35] LABS: Anion Gap 3 (5-15); BUN 13 mg/dL (7-18); BUN/Creat Ratio 18.5 RATIO (10-20); Calcium,Total 8.1 mg/dL (8.5-10.1); Chloride 111 mmol/L (98-107); Cholesterol 172 mg/dL (200); EST Glomerular Filtration Rate 90 mL/min (>60); Est Glom Filt Rate - Afr Amer 109 mL/min (>60); Estimated Creatinine Clearance 80.01 ml/min; Glucose 90 mg/dL (74-106); High Density Lipoprotein 53 mg/dL; Potassium 4.6 mmol/L (3.5-5.1); Sodium Level 144 mmol/L (136-145); Thyroid Stim Hormone (TSH) 1.25 uIU/mL (0.358-3.74); Triglycerides 97 mg/dL; Very Low Density Lipoprotein 19 mg/dL (5-40)
--- NOTE | 2017-09-23 07:30 | PCM.PN.HOSP ---
Subjective: Patient was seen and examined. No new complains. Vitals/I&O's: Vital Signs Temp Pulse Resp BP Pulse Ox 98.0 F 59 L 16 97/51 L 97 09/23/17 01:50 09/23/17 03:00 09/23/17 01:50 09/23/17 01:50 09/23/17 01:50 Oxygen Delivery Method Room Air Weight: 66.9 kg Body Mass Index (BMI) 23.8 Intake and Output for Last 24 Hours 09/21/17 09/22/17 09/23/17 23:59 23:59 23:59 Intake Total 776 / 776 702 / 702 Balance 776 / 776 702 / 702 General: Alert, Oriented x3, Cooperative HEENT: Atraumatic, PERRLA, EOMI, Normocephalic Neck: Supple, No JVD, Negative Carotid Bruits Lungs: Clear to auscultation, Normal air movement Cardiovascular: Regular rate, No murmurs Abdomen: Bowel Sounds Present, Soft, Non Tender Extremities: No edema, Capillary Refill Less than 3 Seconds Skin: No rashes, No breakdown Musculoskeletal: No Tenderness to Palpation of Joints or Extremities Neurological: Cranial nerves II-XII grossly intact Psych/Mental Status: Normal Affect, Appropriate Laboratory Results 09/22/17 15:33: Magnesium 2.3, Total Bilirubin 0.50, Direct Bilirubin 0.11, AST 11 L, ALT 8 L, Alkaline Phosphatase 88, Total Protein 8.2, Albumin 4.0, Globulin 4.2 09/22/17 15:33: Troponin I 0.186 H 09/22/17 19:07: Troponin I 0.156 H 09/23/17 05:40: Sodium 144, Potassium 4.6, Chloride 111 H, Carbon Dioxide 30.0, Anion Gap 3 L, BUN 13, Creatinine 0.70, Estim Creat Clear Calc 80.01, Est GFR (MDRD) Af Amer 109, Est GFR (MDRD) Non-Af 90, BUN/Creatinine Ratio 18.5, Glucose 90, Calcium 8.1 L, Triglycerides 97, Cholesterol 172, LDL Cholesterol 100, VLDL Cholesterol 19, HDL Cholesterol 53, TSH 1.25 Current Medications Acetaminophen (Tylenol) 650 mg PO Q6H PRN PRN PRN Reason: Mild Pain (scale 0-3)/T>100.7 Al Hydroxide/Mg Hydroxide (Mylanta Ii) 30 ml PO Q6H PRN PRN PRN Reason: Gastric Burning Apixaban (Eliquis) 5 mg PO BID [facility] Last Admin: 09/22/17 21:42 Dose: 5 mg Carbidopa/Levodopa (Rytary Er 36.25 Mg-145 Mg Cap) 1 each PO TID [facility] Last Admin: 09/23/17 05:15 Dose: 1 each Docusate Sodium (Colace) 200 mg PO BID PRN PRN PRN Reason: Constipation Sodium Chloride () 1,000 mls @ 60 mls/hr IV .[id number] [facility] Last Admin: 09/23/17 05:15 Dose: 60 mls/hr Sodium Chloride () 1,000 mls @ 15 mls/hr IV .Q48H [facility] PRN Reason: KVO Metoprolol Tartrate (Lopressor (Beta Margi)) 25 mg PO BID [facility] Last Admin: 09/22/17 16:57 Dose: Not Given Morphine Sulfate () 1 - 2 mg IV Q4H PRN PRN PRN Reason: SEVERE PAIN (6-10/10) Last Admin: 09/22/17 19:51 Dose: 2 mg Ondansetron HCl (Zofran) 4 mg IV Q8H PRN PRN PRN Reason: Nausea Last Admin: 09/22/17 19:51 Dose: 4 mg Oxycodone HCl (Oxyir) 5 mg PO Q4H PRN PRN PRN Reason: Moderate Pain (pain scale 4-5) Rasagiline (Azilect) 0.5 mg PO DAILY [facility] Sodium Chloride () 5 - 30 ml IV UD PRN PRN Reason: SALINE FLUSH Last Admin: 09/22/17 19:52 Dose: 20 ml Zolpidem Tartrate (Ambien (Generic)) 5 mg PO QHS PRN PRN PRN Reason: INSOMNIA Medical Necessity - Tobacco Use Smoking Status: Never smoker Assessment/Plan All Active Problems (Last Updated 08/24/17 @ 16:07 by Brittaney Chambers) Atrial fibrillation with RVR (Acute) H/O tubal ligation (Resolved) 1. Paroxysmal A. fib with RVR, started on amiodarone, converted to NSR, cardiology consulted, on metoprolol, Eliquis 2. Obstructive sleep apnea on CPAP 3. Parkinson disease, on Sinemet and rasagiline 4. Valvular heart disease, mild 5. DVT prophylaxis - on Eliquis
[2017-09-23 07:36] VITALS: PULSE 57
--- NOTE | 2017-09-23 07:42 | PCM.PN.CARD ---
Subjectve: Patient seen and evaluated. Appears to be doing well. Converted back to sinus rhythm last night after starting amiodarone. Objective: Vital Signs Temp Pulse Resp BP Pulse Ox 98.0 F 59 L 16 97/51 L 97 09/23/17 01:50 09/23/17 03:00 09/23/17 01:50 09/23/17 01:50 09/23/17 01:50 Oxygen Delivery Method Room Air Weight: 147 lb 7.828 oz Body Mass Index (BMI) 23.8 Intake and Output for Last 24 Hours 09/21/17 09/22/17 09/23/17 23:59 23:59 23:59 Intake Total 776 / 776 702 / 702 Balance 776 / 776 702 / 702 General: Awake, Alert, Oriented x 3 HEENT: PERRL, EOMI, Sclera Non Icteric Neck: Supple, Good ROM, No Lymph Node Enlargement Lungs: Clear to auscultation Cardiovascular: Regular Rhythm, Normal S1, Normal S2, No Murmurs, No Rubs, No Gallops Vascular: No Carotid Bruits, Normal Femoral Pulses, Normal Radial Pulses, Normal Dorsalis Pedal Pulse, Normal Posterior Tibial Pulses Abdomen: Bowel Sounds Present, Soft, Non Tender, No HSM, No Organomegaly Extremities: No Cyanosis, No Clubbing, No edema Neurological: No Focal Motor or Sensory Deficit 09/22/17 15:33: Magnesium 2.3, Total Bilirubin 0.50, Direct Bilirubin 0.11 09/22/17 15:33: Troponin I 0.186 H 09/22/17 19:07: Troponin I 0.156 H 09/23/17 05:40: Sodium 144, Potassium 4.6, Chloride 111 H, Carbon Dioxide 30.0, Anion Gap 3 L, BUN 13, Creatinine 0.70, Est GFR (MDRD) Af Amer 109, Est GFR (MDRD) Non-Af 90, BUN/Creatinine Ratio 18.5, Glucose 90, Calcium 8.1 L, Triglycerides 97, Cholesterol 172, LDL Cholesterol 100, VLDL Cholesterol 19, HDL Cholesterol 53 Rhythm: EKG: Normal sinus rhythm. Medical Necessity - Tobacco Use Smoking Status: Never smoker Assessment/Plan 1. Atrial flutter with a rapid ventricular response rate with a 2-1 conduction. Patients presents with atrial flutter the duration of which is not clear at this time. She appears to have converted back to sinus rhythm. The plan would be to continue her with Eliquis for at least a month and also amiodarone for 1 month. Would recommend pharmacologic stress testing this morning due to mild troponin elevation which may have been due to demand ischemia. The above is normal I would recommend discharging home for outpatient follow-up. Thank you for allowing me to participate in the care of your patient. Please don't hesitate to call if any issues arise
--- NOTE | 2017-09-23 07:45 | PN.CARD_ITS ---
Subjectve: Patient seen and evaluated. Appears to be doing well. Converted back to sinus rhythm last night after starting amiodarone. Objective: Vital Signs Temp Pulse Resp BP Pulse Ox 98.0 F 59 L 16 97/51 L 97 09/23/17 01:50 09/23/17 03:00 09/23/17 01:50 09/23/17 01:50 09/23/17 01:50 Oxygen Delivery Method Room Air Weight: 147 lb 7.828 oz Body Mass Index (BMI) 23.8 Intake and Output for Last 24 Hours 09/21/17 09/22/17 09/23/17 23:59 23:59 23:59 Intake Total 776 / 776 702 / 702 Balance 776 / 776 702 / 702 General: Awake, Alert, Oriented x 3 HEENT: PERRL, EOMI, Sclera Non Icteric Neck: Supple, Good ROM, No Lymph Node Enlargement Lungs: Clear to auscultation Cardiovascular: Regular Rhythm, Normal S1, Normal S2, No Murmurs, No Rubs, No Gallops Vascular: No Carotid Bruits, Normal Femoral Pulses, Normal Radial Pulses, Normal Dorsalis Pedal Pulse, Normal Posterior Tibial Pulses Abdomen: Bowel Sounds Present, Soft, Non Tender, No HSM, No Organomegaly Extremities: No Cyanosis, No Clubbing, No edema Neurological: No Focal Motor or Sensory Deficit 09/22/17 15:33: Magnesium 2.3, Total Bilirubin 0.50, Direct Bilirubin 0.11 09/22/17 15:33: Troponin I 0.186 H 09/22/17 19:07: Troponin I 0.156 H 09/23/17 05:40: Sodium 144, Potassium 4.6, Chloride 111 H, Carbon Dioxide 30.0, Anion Gap 3 L, BUN 13, Creatinine 0.70, Est GFR (MDRD) Af Amer 109, Est GFR ( MDRD) Non-Af 90, BUN/Creatinine Ratio 18.5, Glucose 90, Calcium 8.1 L, Triglycerides 97, Cholesterol 172, LDL Cholesterol 100, VLDL Cholesterol 19, HDL Cholesterol 53 Rhythm: EKG: Normal sinus rhythm. Medical Necessity - Tobacco Use Smoking Status: Never smoker Assessment/Plan 1. Atrial flutter with a rapid ventricular response rate with a 2-1 conduction. * Patients presents with atrial flutter the duration of which is not clear at this time. * She appears to have converted back to sinus rhythm. * The plan would be to continue her with Eliquis for at least a month and also amiodarone for 1 month. * Would recommend pharmacologic stress testing this morning due to mild troponin elevation which may have been due to demand ischemia. The above is normal I would recommend discharging home for outpatient follow-up. * Thank you for allowing me to participate in the care of your patient. Please don't hesitate to call if any issues arise
[2017-09-23 07:56] VITALS: O2SAT 94
[2017-09-23 08:53] VITALS: BP 130/69; PULSE 72; RESP 18; TEMP 36; O2SAT 95
--- NOTE | 2017-09-23 10:24 | PCM.DC ---
- Discharge Diagnoses Current Active Problems: Current Active and Chronic Problems Atrial fibrillation with RVR (Acute) Reason(s) for Visit for Discharge Instructions: Palpitations You will use the following diet at home:: Cardiac Your food should be the consistency of: Regular Your liquids should be the consistency of: Regular/Thin Discharge Activity: Return to Normal Activity Weight Bearing Status: Weight bearing as tolerated Additional Instructions: Continue to take all your medications. Continue to remain active. Follow-up with your inventory control/shipping receiving in 1 month Allergies/Adverse Reactions: Allergies detergent Adverse Reaction (Severe, Uncoded 09/22/17 12:20) Respiratory problems Medications to take at Discharge rasagiline 0.5 mg tablet 0.5 mg PO DAILY 08/24/17 Aspirin 325 mg PO DAILY@0800 09/22/17 Carbidopa/Levodopa [Rytary ER 23.75 mg-95 mg Cap] 1 cap PO TID 09/22/17 Amiodarone HCl [Cordarone] 200 mg PO DAILY #30 tab 09/23/17 Apixaban [Eliquis] 5 mg PO BID #60 tab 09/23/17 Metoprolol Tartrate [Lopressor (beta france)] 25 mg PO BID #60 tab 09/23/17 The following prescriptions were given: Amiodarone HCl [Cordarone] 200 mg PO DAILY #30 tab Apixaban [Eliquis] 5 mg PO BID #60 tab Metoprolol Tartrate [Lopressor (beta france)] 25 mg PO BID #60 tab Primary Care Physician: Micheal Martinez MD [Primary Care Provider] - Please follow up with your Primary Care Physician in: within 2 weeks Test Results: Test results from this visit will be discussed in further detail at your follow-up appointment, if applicable. Please Follow Up With: Sandeep Smith MD When: 1 month Proposed Discharge Date: 09/23/17
--- NOTE | 2017-09-23 10:33 | PCM.DC.SUM ---
Discharge Date and Diagnosis Date of Admission: 09/22/17 Date of Discharge: 09/23/17 - Primary Discharge Diagnosis Active and Suspected Problems Atrial fibrillation with RVR (Acute) Elevated troponin secondary to demand ischemia Transient hypotension, resolved - Secondary Discharge Diagnosis Chronic Problems Paroxysmal atrial fibrillation (Chronic) Nonrheumatic mitral valve disorder (Chronic) Tricuspid valve disorder (Chronic) History of aortic valve disorder (Chronic) Sleep apnea (Chronic) Parkinson's disease (Chronic) Hospital Course and Treatment Imaging Results: 09/23/17 07:45 Nuclear Stress Test - Chemical [NM] Routine Cardiology Operations: None Summary of Care Provided: The patient is a 62 year old F with PMHx of JEANA on CPAP, Parkinson's disease, paroxysmal atrial fibrillation, comes seen with complaints of chest pain and palpitation. This was associated with dizziness. She had reported to her PCP where she was found to have A. fib with RVR with heart rates in the 160s. Patient presented to the ED, was started on Cardizem but her blood pressure dropped to the 90s. Cardizem was held, started on digoxin IV. She was managed as paroxysmal A. fib with RVR. She was consulted, patient was started on IV amiodarone and later transitioned to oral amiodarone. She spontaneously converted to normal sinus rhythm. She was also started on Eliquis. She had mild elevation of her troponin believed to be second to demand ischemia. She had a stress test which was reported negative prior to discharge. Patient will follow up with cardiology in the outpatient in 1 month. Discharge Diet: Low fat/ Low Cholesterol, 2000 mg Sodium Diet Discharge Activity: Return to Normal Activity Weight Bearing Status: Weight bearing as tolerated Home Medications: Medications to take at Discharge rasagiline 0.5 mg tablet 0.5 mg PO DAILY 08/24/17 Aspirin 325 mg PO DAILY@0800 09/22/17 Carbidopa/Levodopa [Rytary ER 23.75 mg-95 mg Cap] 1 cap PO TID 09/22/17 Amiodarone HCl [Cordarone] 200 mg PO DAILY #30 tab 09/23/17 Apixaban [Eliquis] 5 mg PO BID #60 tab 09/23/17 Metoprolol Tartrate [Lopressor (beta france)] 25 mg PO BID #60 tab 09/23/17 Following Prescrptions Were Given to Patient: Amiodarone HCl [Cordarone] 200 mg PO DAILY #30 tab Apixaban [Eliquis] 5 mg PO BID #60 tab Metoprolol Tartrate [Lopressor (beta france)] 25 mg PO BID #60 tab Primary Care Physician: Micheal Martinez MD [Primary Care Provider] - Please follow up with your Primary Care Physician in: within 2 weeks Please Follow Up With: Sandeep Smith MD When: 1 month Disposition: Home Minutes spent on discharge:: 40 Patient Condition:: Stable Medical Necessity - Tobacco Use Smoking Status: Never smoker Meaningful Use Info Meaningful Use Diagnoses (Choose all that apply): None applicable Code Visit Inpatient E&M: 46287 Disch Hosp
--- NOTE | 2017-09-23 11:25 | STRESSREP ---
Stress Test Report Pharmacologic myocardial perfusion stress test. 62-year-old lady with a history of paroxysmal atrial fibrillation. Stress protocol Resting EKG demonstrates sinus rhythm with rate of 70 bpm normal intervals and noted resting blood pressure 738/82 mmHg. 0.4 mg of regadenoson was infused per usual protocol followed by rapid intravenous saline flush injection. Continuous EKG monitoring was performed. Patient maintained sinus rhythm throughout the recording the maximum heart rate attained was 100 bpm which was 62% of maximum predicted heart rate the maximum workload was 1 metabolic equivalent. The resting blood pressure is 138/82 with a final blood pressure 112/70. No clinical angina was noted. Myocardial perfusion protocol. 11.8 mCi of technetium 99m sestamibi was injected at rest. 0.4 mg regadenoson was infused per usual protocol peak infusion 33.1 mCi of technetium 99m sestamibi was injected stress images were obtained stress and rest images were reconstructed and compared in the short axis vertical long and horizontal long axis. Gated images were also obtained pre- Perfusion SPECT analysis: Review of the stress images demonstrate normal uptake of tracer noted in the septum inferior wall and lateral wall. There is mild reduction of tracer noted in the mid anterior wall to the apex. This appears to be present on the stress and rest images to a similar extent suggesting possible anterior breast wall attenuation artifact. Gated SPECT analysis: The gated ejection fraction is noted to be 72%. Conclusion: Probably normal pharmacologic myocardial perfusion stress test. Anterior breast wall attenuation artifact suggested ischemia cannot be completely excluded. Preserved ejection fraction.
--- NOTE | 2017-09-23 11:52 | CASEMGMT ---
Face to Face with patient for initial transition planning/care coordination assessment. ANAMIKA NOEL introduced self and role at [facility], pt voices understanding and consents to assessment at this time. Pt is sitting up in bed in no distress at this time. Pt is A/O x4 at this time and answers all questions appropriately at this time. Care providers, pharmacy, and demographics verified. See attached link. Pt voices no further concerns/needs at this time. Advised pt to ask for CM if any further questions/concerns/needs arise, voices understanding. PLAN: [place] ANAMIKA NOEL
[2017-09-23 12:27] VITALS: PULSE 80
[2017-09-23] MEDS: Amiodarone 200 MG Tablet PO (12:27)
[2017-09-23] MEDS: Metoprolol Tartrate 25 MG Tablet PO (12:27)
[2017-09-23] MEDS: APIXABAN 5 MG TABLET PO (12:28)
--- NOTE | 2017-09-23 12:43 | CASEMGMT ---
Per Dr. Montenegro, pt to be sent home on Eliquis and e-scribed to pharmacy. Call to [facility] retail pharmacy and per Lily, pt has no co-pay for Eliquis at this time. Pt aware, voices understanding. Freya WILLSON CM
== END 2017-09-23 13:00 | disposition home or self-care (01) | DRG 309 ==
LOC: ED 13:16 → PCU 14:31
PROVIDERS: Admitting Provider Internal Medicine; Emergency Provider Emergency Medicine; Family Provider Family Medicine; PCP Family Medicine; Visit Provider Internal Medicine
DX: I48.0 Paroxysmal atrial fibrillation (principal); I24.8 Other forms of acute ischemic heart disease; G20 Parkinson's disease; I48.92 Unspecified atrial flutter; G47.33 Obstructive sleep apnea (adult) (pediatric); I95.9 Hypotension, unspecified; I34.9 Nonrheumatic mitral valve disorder, unspecified; I08.2 Rheumatic disorders of both aortic and tricuspid valves
CPT/HCPCS: 36415; 71045; 78452; 80048; 80061; 80076; 83735; 84443; 84484; 85025; 93005; 93017; 93306; 99285; A9500; J7030; A4216; J2405; J2785

== ENCOUNTER → 2017-11-10 13:39 | Outpatient (CLI) | payer BC, SELFPAY ==
--- NOTE | 2017-11-10 13:40 | ECHOD_ITS ---
Reason For Study: MV PROLAPSE Procedure This was a 2D Doppler, Color Flow transthoracic echocardiogram. Exam performed in department. Left Ventricle Normal LV size. Left ventricular systolic function is normal. The estimated ejection fraction is 60 %. Stage 1 diastolic dysfunction. No regional wall motion abnormalities noted. Right Ventricle Normal RV size. Normal systolic function. Atria Normal left atrium. Normal right atrium. Mitral Valve Normal mitral valve. Tricuspid Valve Normal tricuspid valve. Mild tricuspid valve insufficiency. Pulmonary artery systolic pressure is 33 mmHg. Aortic Valve Trisinus/trileaflet aortic valve. Mild focal aortic valve calcification. Trivial eccentric aortic valve insufficiency. Pulmonic Valve The pulmonic valve is not well visualized. Great Vessels Normal aortic root. The pulmonary artery is normal size. Normal inferior vena cava. Pericardium/Pleural No pericardial effusion. MMode/2D Measurements & Calculations LVIDd: 4.8 cm IVSd: 0.95 cm Ao root diam: 3.1 cm LVIDs: 3.3 cm LVPWd: 0.86 cm LA dimension: 3.9 cm RVDd: 2.9 cm FS: 32.6 % LAV(MOD-bp): 56.1 ml LA A4 area: 18.3 cm2 RA A4 area: 12.7 cm2 LAV(MOD-bp) Indexed: 32.0 ml/m2 LAV(MOD-sp2): 61.4 ml LAV(MOD-sp4): 49.9 ml Time Measurements MV dec time: 0.27 sec Doppler Measurements & Calculations MV E max jv: 79.3 cm/sec Lat Peak E' Jv: 9.7 cm/sec Med Peak E' Jv: 7.9 cm/sec MV A max jv: 95.2 cm/sec E/E' lat: 8.2 E/E' med: 10.0 MV E/A: 0.83 Ao V2 max: 179.5 cm/sec AI max jv: 444.4 cm/sec LV V1 max: 115.9 cm/sec Ao max P.9 mmHg AI max P.2 mmHg LV V1 max P.4 mmHg Ao V2 mean: 115.5 cm/sec AI dec slope: 231.6 cm/sec2 LV V1 mean P.8 mmHg Ao mean P.3 mmHg AI P1/2t: 562.0 msec LV V1 mean: 78.7 cm/sec Ao V2 VTI: 39.8 cm LV V1 VTI: 29.0 cm PA V2 max: 94.2 cm/sec TR max jv: 269.2 cm/sec TR max P.3 mmHg Interpretation Summary Normal LV size. Left ventricular systolic function is normal. The estimated ejection fraction is 60 %. Stage 1 diastolic dysfunction. Mild tricuspid valve insufficiency. Ordering Physician: Sandeep Smith Referring Physician: JAMARCUS VIVAS Performed By: Kadi Mallory, OPAL, RVT
== END ==
PROVIDERS: Family Provider Family Medicine; PCP Family Medicine; Referring Provider Internal Medicine Cardiovascular Disease; Visit Provider Internal Medicine Cardiovascular Disease
DX: I34.9 Nonrheumatic mitral valve disorder, unspecified (principal); I48.91 Unspecified atrial fibrillation
CPT/HCPCS: 93225; 93226; 93306

== ENCOUNTER → 2018-04-17 09:46 | Outpatient (CLI) | payer BC, SELFPAY ==
[2018-04-17 12:55] LABS: Absolute Lymphocyte Count 1.63 X10^3/ul (0.83-4.51); Absolute Neutrophil Count 3.1 X10^3/uL (2.0-7.7); Basophil# 0.04 X10^3/uL; Basophil% 0.8 % (0-1); Eosinophils% 1.9 % (0-5); Hematocrit 41.4 % (37-47); Hemoglobin 13.4 g/dl (12.0-15.0); Lymphocyte # 1.63 X10^3/ul (4.0); Lymphocyte % 31.7 % (19-41); Mean Corp Hgb Conc 32.4 g/gl (32-36); Mean Corpuscular Hgb 28.8 pg (27.0-32.0); Mean Corpuscular Volume 88.8 fL (81-99); Mean Platelet Vol. 11.3 fl (6.2-12.0); Monocyte# 0.32 X10^3/uL; Monocyte% 6.2 % (0-10); Neutrophil # 3.05 X10^3/uL (2.7-7.7); Neutrophil % 59.4 % (47-70); Platelet Count 241 K/mm3 (150-450); RBC Distribution Width CV 13.5 % (11.6-14.6); RBC Distribution Width SD 43.7 fl (35.1-43.9); Red Blood Count 4.66 M/mm3 (4.2-5.4); White Blood Count 5.1 K/mm3 (4.4-11.0)
[2018-04-17 12:57] LABS: POSITIVE COUNT NO; POSITIVE DIFFERENTIAL NO; POSITIVE MORPHOLOGY NO
[2018-04-17 13:48] LABS: AST(SGOT) 12 U/L (15-37); Alanine Aminotransfer ALT/SGPT 12 U/L (13-56); Albumin, Serum 3.8 g/dL (3.2-5.0); Alkaline Phosphatase 80 U/L (45-117); Anion Gap 11 (5-15); BUN 16 mg/dL (7-18); BUN/Creat Ratio 21.9 RATIO (10-20); Chloride 105 mmol/L (98-107); Creatinine, Serum 0.73 mg/dL (0.55-1.02); EST Glomerular Filtration Rate 86 mL/min (>60); Est Glom Filt Rate - Afr Amer 104 mL/min (>60); Glucose 92 mg/dL (74-106); Magnesium 2.2 mg/dL (1.6-2.6); Potassium 4.6 mmol/L (3.5-5.1); Protein, Total 7.8 g/dL (6.4-8.2); Sodium Level 140 mmol/L (136-145); Thyroid Stim Hormone (TSH) 1.26 uIU/mL (0.358-3.74)
== END ==
PROVIDERS: Family Provider Family Medicine; PCP Family Medicine; Visit Provider Family Medicine
DX: I48.92 Unspecified atrial flutter (principal)
CPT/HCPCS: 36415; 80053; 83735; 84439; 84443; 85025

== ENCOUNTER → 2018-05-19 | Outpatient (CLI) | payer BC, SELFPAY ==
--- NOTE | 2018-05-19 12:53 | BI_ITS ---
MAMMOGRAPHY - BILATERAL SCREENING REASON FOR EXAM: Female, 63 years old. Routine annual screening examination. PERTINENT HISTORY: Non-contributory. TECHNIQUE: Digital bilateral breast raine (3D mammographic acquisition) in the CC and MLO projections. 2-D mediolateral oblique (MLO) and craniocaudad (CC) views of both breasts were obtained. CAD: Full Field Digital Mammography with Computer Added Detection was performed. COMPARISON: Comparison is made with prior study dated September 02, 2016 and April 08, 2015. FINDINGS: Breast Composition: The breasts are heterogeneously dense, which may obscure small masses. There are no dominant masses or suspicious calcifications. No other significant abnormalities are identified. There has been no significant change since the prior study. BI/SCREENING MAMM (CAD), BILAT IMPRESSION: Stable bilateral screening mammogram. Yearly follow-up mammogram recommended. (A) ASSESSMENT CATEGORY: BIRADS Category 1: Negative. A letter regarding these results will be sent to the patient by the facility within 30 days. Approximately 10% of breast cancers are not detected by mammography. A normal mammogram should not delay biopsy of a clinically suspicious abnormality. [id number] Electronically Signed: Dexter Ferreira, at 14:09 EDT , Service support ,
== END | disposition home or self-care (01) ==
LOC: OPBI 12:53
PROVIDERS: Family Provider Family Medicine; PCP Family Medicine; Referring Provider Family Medicine; Visit Provider Family Medicine
DX: Z12.31 Encounter for screening mammogram for malignant neoplasm of breast (principal)
CPT/HCPCS: 77063; 77067

== ENCOUNTER 2019-02-11 20:33 | Emergency (ER) | payer BC, SELFPAY ==
[2018-08-29 15:52] VITALS: BMI 24.5
[2019-02-11 20:34] VITALS: BP 157/86; PULSE 90; RESP 18; TEMP 37.4; O2SAT 94; BMI 24.2
--- NOTE | 2019-02-11 20:55 | ED.DCSUM_ITS ---
History of Present Illness Chief Complaint: General Illness Detail of Chief Complaint: cough Informant: Patient, Family Onset: Days - 2 Context: Gradual Onset Timing: Continuous Quality: NETWORKING ADMINISTRATOR cough Current Severity: Moderate Maximum Severity: Moderate Worsened by: - - coughing Relieved by: - - nothing Associated Symptoms: Nasal Congestion, Headache - mild bifrontal, Myalgias, Chest Pain - sore from coughing only, - - malaise. fever to 102.4.. Negative for: Sinus Pressure, Nausea, Vomiting, Diarrhea, Shortness of Breath, Hemoptysis Narrative: Patient who lives at home with Parkinson's presenting with malaise, nonproductive cough, myalgias, fever. She denies dyspnea. She states she felt so weak she had trouble getting out of the chair but once up she is able to walk and walked into the ER. Denies any swelling in her legs or orthopnea. She has a history of paroxysmal atrial fibrillation and is on Eliquis, she denies any feeling like she was in A. fib but the family member notes that her pulse is usually 50 and today it was 80. - Past Medical History (1) Parkinson disease Status: Chronic (2) Paroxysmal atrial fibrillation Status: Chronic (3) Paroxysmal atrial flutter Status: Chronic Past Medical History - Allergies and Home Meds Allergies/Adverse Reactions: Allergies detergent Adverse Reaction (Severe, Uncoded 02/11/19 20:37) Respiratory problems Primary Care Physician: Micheal Martinez MD [Primary Care Provider] - 1 Week if not improving (or return to ER if worsening) Surgical History: - - Tubal ligation. Smoking Status: Never smoker Drugs: None - Family History Maternal Family History: Family History (Last Reviewed 08/29/18 @ 16:12 by Sadneep Smith MD) Mother No problems noted. Father Hypertension Family History: Reports: - - Atrial fibrillation. Paternal Family History: Family History (Last Reviewed 08/29/18 @ 16:12 by Sandeep Smith MD) Mother No problems noted. Father Hypertension Family History: Reports: Heart Disease, Hypertension Review of Systems General: Reports: Fever, Malaise. Denies: Chills, Sweats Eyes: Denies: Visual changes - bilaterally, Diplopia ENT: Reports: Rhinorrhea. Denies: Bilateral ear pain, Sore throat Cardiovascular: Reports: Chest pain. Denies: Palpitations Respiratory: Reports: Cough. Denies: Dyspnea, Sputum, Dyspnea on exertion, Orthopnea Gastrointestinal: Denies: Abdominal pain, Nausea, Vomiting, Diarrhea, Melena, Hematochezia Genitourinary: Denies: Dysuria, Hematuria, Frequency Musculoskeletal: Reports: Myalgias. Denies: Arthralgias, Neck pain, Back pain, Swelling, Extremity Pain Skin: Denies: Rash, Wounds Neurological: Reports: Headache. Denies: Weakness, Numbness Physical Exam Vital Signs/Narrative: Vital Signs Temp Pulse Resp BP Pulse Ox 02/11/19 20:34 99.4 F H 90 18 157/86 H 94 Inital Vital Signs reviewed: Yes General: Well nourished, Well developed, - - NAD Head: Normocephalic, Atraumatic. Negative for: Sinus Tenderness Eyes: Perrl, EOMI Nose: Normal Inspection, No Rhinorrhea. Negative for: Purulent Drainage Mouth/Throat: Normal Inspection, No Posterior Erythema Neck: Supple, Nontender, No Lymphadenopathy, No Meningismus Cardiovascular: Regular rate, Regular rhythm, No murmurs Respiratory: No distress, CTA bilaterally, Chest nontender Abdomen: Soft, Nontender, Nondistended, Normal bowel sounds Back: Nontender, Normal Inspection Extremities: Nontender, No edema Skin: Normal color, No rash, No Trauma Neurological: Alert, Oriented x3, Cranial nerves II-XII grossly intact, Normal Strength, Normal Sensation Psychological: Normal affect, Normal Mood Diagnostic/Tx/Re-eval Chest X-Ray - ED: 2 View, Read by ED Physician, No Acute Disease, Chronic Changes Laboratory Tests 02/11/19 02/11/19 02/11/19 Range/Units 20:55 20:55 20:55 WBC 6.7 (4.4-11.0) K/mm3 RBC 4.31 (4.2-5.4) M/mm3 Hgb 12.3 (12.0-15.0) g/dL Hct 37.0 (37-47) % MCV 85.8 (81-99) fL MCH 28.5 (27.0-32.0) pg MCHC 33.2 (32-36) g/dL RDW Std Deviation 43.9 (35.1-43.9) fl RDW Coeff of Irasema 13.9 (11.6-14.6) % Plt Count 191 (150-450) K/mm3 MPV 11.2 (6.2-12.0) fl Immature Gran % (Auto) 0.300 (0.0-0.9) % Neut % (Auto) 85.3 H (47-70) % Lymph % (Auto) 6.7 L (19-41) % [place] % (Auto) 7.3 (0-10) % Eos % (Auto) 0.0 (0-5) % Baso % (Auto) 0.4 (0-1) % Absolute Neuts (auto) 5.7 (2.0-7.7) X10^3/uL Absolute Lymphs (auto) 0.45 L (0.83-4.51) X10^3/uL Nucleated RBC % 0 (0-5) % Sodium 133 L (136-145) mmol/L Potassium 3.8 (3.5-5.1) mmol/L Chloride 103 (98-107) mmol/L Carbon Dioxide 24.0 (21.0-32.0) mmol/L Anion Gap 6 (5-15) BUN 11 (7-18) mg/dL Creatinine 0.76 (0.55-1.02) mg/dL Estim Creat Clear Calc 71.85 ml/min Est GFR (MDRD) Af Amer 100 (>60) mL/min Est GFR (MDRD) Non-Af 83 (>60) mL/min BUN/Creatinine Ratio 14.6 (10-20) RATIO Glucose 113 H (74-106) mg/dL Lactic Acid 0.8 (0.4-1.9) mmol/L Calcium 9.1 (8.5-10.1) mg/dL - Medical Decision Making On my interpretation x-ray shows chronic changes but no acute infiltrates; difficult to rule out interstitial superimposed infiltrate. Influenza is negative. Basic labs are unremarkable. I will treat her with antibiotics to cover atypical organisms, and at dosing to cover atypical pneumonia. She was offered admission but prefers to be discharged home. Her oxygen levels are good, so I think this is okay as long as she feels like she can get around okay. Advised to follow-up or return if worse. She is comfortable with that plan. ED Disposition - Plan for ED Patient: Disposition: Home or Assisted Living Diagnosis: Upper respiratory infection, acute Instructions: Acute Bronchitis Prescriptions: levoFLOXacin tablet [Levaquin tablet] 750 mg PO DAILY #5 tab Prescription Printed Referrals: Micheal Martinez MD [Primary Care Provider] - 1 Week if not improving (or return to ER if worsening)
[2019-02-11 21:08] LABS: Absolute Lymphocyte Count 0.45 X10^3/uL (0.83-4.51); Absolute Neutrophil Count 5.7 X10^3/uL (2.0-7.7); Basophil# 0.03 X10^3/uL; Basophil% 0.4 % (0-1); Hemoglobin 12.3 g/dL (12.0-15.0); Lymphocyte # 0.45 X10^3/ul (4.0); Lymphocyte % 6.7 % (19-41); Mean Corp Hgb Conc 33.2 g/dL (32-36); Mean Corpuscular Hgb 28.5 pg (27.0-32.0); Mean Corpuscular Volume 85.8 fL (81-99); Mean Platelet Vol. 11.2 fl (6.2-12.0); Monocyte# 0.49 X10^3/uL; Monocyte% 7.3 % (0-10); NRBC Flagged by Analyzer 0 % (0-5); Neutrophil # 5.71 X10^3/uL (2.7-7.7); Neutrophil % 85.3 % (47-70); POSITIVE DIFFERENTIAL YES; Platelet Count 191 K/mm3 (150-450); RBC Distribution Width CV 13.9 % (11.6-14.6); RBC Distribution Width SD 43.9 fl (35.1-43.9); Red Blood Count 4.31 M/mm3 (4.2-5.4); White Blood Count 6.7 K/mm3 (4.4-11.0)
--- NOTE | 2019-02-11 21:10 | RAD_ITS ---
STUDY: X-RAY CHEST REASON FOR EXAM: Female, 64 years old. Cough and fever TECHNIQUE: PA and lateral views of the chest. COMPARISON: 09/22/2017. FINDINGS: Cardiac silhouette unremarkable. Pulmonary vascularity unremarkable. Aorta unremarkable. No focal airspace consolidation. No pleural effusions. 8 mm nodular density left perihilar lung. Upper abdomen unremarkable. Osseous structures intact. No pneumothorax. RAD/Chest PA and Lateral IMPRESSION: No acute cardiopulmonary findings. Possible left pulmonary nodule. Consider follow-up chest CT as clinically indicated. Electronically Signed: Juan Richards, at 22:50 EST Tel , Service support ,
[2019-02-11 21:13] LABS: Differential Indicated SCAN CRITERIA MET
[2019-02-11 21:20] LABS: Anion Gap 6 (5-15); BUN 11 mg/dL (7-18); BUN/Creat Ratio 14.6 RATIO (10-20); Calcium,Total 9.1 mg/dL (8.5-10.1); Chloride 103 mmol/L (98-107); Creatinine, Serum 0.76 mg/dL (0.55-1.02); EST Glomerular Filtration Rate 83 mL/min (>60); Est Glom Filt Rate - Afr Amer 100 mL/min (>60); Estimated Creatinine Clearance 71.85 ml/min; Glucose 113 mg/dL (74-106); Potassium 3.8 mmol/L (3.5-5.1); Sodium Level 133 mmol/L (136-145)
[2019-02-11 21:31] LABS: Lactic Acid 0.8 mmol/L (0.4-1.9)
[2019-02-11 22:05] LABS: Differential Comment SCANNED; Platelet Estimate ADEQUATE (ADEQ)
[2019-02-11 22:08] LABS: Red Cell Morphology NORM C+C NORMAL (NORM C&C)
[2019-02-11] MEDS: Acetaminophen 500 MG Tablet 1000 MG PO (22:08)
== END 2019-02-11 22:10 | disposition home or self-care (01) ==
PROVIDERS: Emergency Provider Emergency Medicine; Family Provider Family Medicine; PCP Family Medicine
DX: J06.9 Acute upper respiratory infection, unspecified (principal); G20 Parkinson's disease; I48.0 Paroxysmal atrial fibrillation; Z79.01 Long term (current) use of anticoagulants
CPT/HCPCS: 71046; 80048; 83605; 85025; 87804; 99284; A4216

== ENCOUNTER → 2019-02-23 10:15 | Outpatient (CLI) | payer BC, SELFPAY ==
[2019-02-11 20:34] VITALS: BMI 24.2
[2019-02-23 12:31] LABS: Absolute Lymphocyte Count 1.49 X10^3/uL (0.83-4.51); Absolute Neutrophil Count 6.5 X10^3/uL (2.0-7.7); Basophil# 0.04 X10^3/uL; Basophil% 0.5 % (0-1); Eosinophil# 0.06 X10^3/uL; Eosinophils% 0.7 % (0-5); Hematocrit 40.7 % (37-47); Hemoglobin 12.8 g/dL (12.0-15.0); Lymphocyte # 1.49 X10^3/ul (4.0); Lymphocyte % 17.2 % (19-41); Mean Corp Hgb Conc 31.4 g/dL (32-36); Mean Corpuscular Hgb 27.3 pg (27.0-32.0); Mean Corpuscular Volume 86.8 fL (81-99); Mean Platelet Vol. 11.1 fl (6.2-12.0); Monocyte# 0.49 X10^3/uL; Monocyte% 5.7 % (0-10); NRBC Flagged by Analyzer 0 % (0-5); Neutrophil # 6.52 X10^3/uL (2.7-7.7); Neutrophil % 75.4 % (47-70); Platelet Count 325 K/mm3 (150-450); RBC Distribution Width SD 44.8 fl (35.1-43.9); Red Blood Count 4.69 M/mm3 (4.2-5.4); White Blood Count 8.6 K/mm3 (4.4-11.0)
[2019-02-23 12:54] LABS: Anion Gap 6 (5-15); BUN 12 mg/dL (7-18); BUN/Creat Ratio 14.7 RATIO (10-20); Chloride 105 mmol/L (98-107); Creatinine, Serum 0.82 mg/dL (0.55-1.02); EST Glomerular Filtration Rate 75 mL/min (>60); Est Glom Filt Rate - Afr Amer 91 mL/min (>60); Glucose 100 mg/dL (74-106); Potassium 4.1 mmol/L (3.5-5.1); Sodium Level 137 mmol/L (136-145)
== END ==
PROVIDERS: PCP Family Medicine; Visit Provider Family Medicine
DX: J18.9 Pneumonia, unspecified organism (principal); H93.19 Tinnitus, unspecified ear; R53.1 Weakness
CPT/HCPCS: 36415; 80048; 85025

== ENCOUNTER → 2019-04-23 12:47 | Outpatient (CLI) | payer BC, SELFPAY ==
--- NOTE | 2019-04-23 12:53 | CT_ITS ---
STUDY: CT CHEST WITH CONTRAST REASON FOR EXAM: Female, 64 years old. PULMONARY NODULE FOLLOW UP RADIATION DOSAGE (If Supplied By Facility): CTDIvol = ( 6.7 ) mGy, DLP = ( 224.27 ) mGycm TECHNIQUE: Transaxial imaging was performed following intravenous administration of IV 100mL Isovue-300. Multiplanar coronal and sagittal images were reformatted. Individualized dose optimization techniques were used for this CT. COMPARISON: Comparison is made with prior chest radiograph dated February 11, 2019. FINDINGS: Small benign-appearing bilateral axillary lymph nodes. Increased linear markings at the lung bases suggestive of bibasilar scarring and/or linear atelectasis. No pulmonary nodule is seen. There is no demonstrated pleural abnormality. Mild coronary artery calcification. Normal mediastinum. Normal hilar regions. Normal enhanced pulmonary arteries. Normal aorta arch and descending thoracic aorta. There are multi-level degenerative changes of the thoracic spine. Increased kyphosis. There is no demonstrated abnormality of the visualized upper abdomen. CT/Chest WITH Contrast IMPRESSION: Increased linear markings at the lung bases suggestive of linear atelectasis and/or scarring. No pulmonary nodule is seen. Electronically Signed: Dexter Ferreira, at 14:55 EDT , Service support ,
[2019-04-23 13:10] LABS: CREATININE FINGERSTICK 0.8 mg/dL (0.55-1.02); EGFR FINGERSTICK > 60.0000 mL/min (>60)
== END ==
PROVIDERS: Family Provider Family Medicine; PCP Family Medicine; Referring Provider Family Medicine; Visit Provider Family Medicine
DX: R91.1 Solitary pulmonary nodule (principal)
CPT/HCPCS: 71260; Q9967

== ENCOUNTER → 2019-08-13 14:47 | Outpatient (CLI) | payer BC, SELFPAY ==
[2019-08-13 16:57] LABS: Absolute Lymphocyte Count 1.76 X10^3/uL (0.83-4.51); Absolute Neutrophil Count 4.9 X10^3/uL (2.0-7.7); Basophil# 0.06 X10^3/uL; Basophil% 0.8 % (0-1); Eosinophil# 0.12 X10^3/uL; Eosinophils% 1.6 % (0-5); Hemoglobin 12.2 g/dL (12.0-15.0); Lymphocyte # 1.76 X10^3/ul (4.0); Lymphocyte % 24.1 % (19-41); Mean Corp Hgb Conc 32.1 g/dL (32-36); Mean Corpuscular Hgb 28.2 pg (27.0-32.0); Mean Corpuscular Volume 87.8 fL (81-99); Mean Platelet Vol. 11.4 fl (6.2-12.0); Monocyte# 0.45 X10^3/uL; Monocyte% 6.2 % (0-10); NRBC Flagged by Analyzer 0 % (0-5); Neutrophil # 4.88 X10^3/uL (2.7-7.7); Neutrophil % 66.9 % (47-70); Platelet Count 279 K/mm3 (150-450); RBC Distribution Width CV 14.5 % (11.6-14.6); RBC Distribution Width SD 45.6 fl (35.1-43.9); Red Blood Count 4.33 M/mm3 (4.2-5.4); White Blood Count 7.3 K/mm3 (4.4-11.0)
[2019-08-13 17:19] LABS: Anion Gap 7 (5-15); BUN 16 mg/dL (7-18); Calcium,Total 9.1 mg/dL (8.5-10.1); Chloride 105 mmol/L (98-107); EST Glomerular Filtration Rate 77 mL/min (>60); Est Glom Filt Rate - Afr Amer 93 mL/min (>60); Glucose 97 mg/dL (74-106); Potassium 4.3 mmol/L (3.5-5.1); Sodium Level 137 mmol/L (136-145); T4 Free Direct 1.07 ng/dL (0.76-1.46); Thyroid Stim Hormone (TSH) 0.94 uIU/mL (0.358-3.74)
== END ==
PROVIDERS: PCP Family Medicine; Visit Provider Family Medicine
DX: R61 Generalized hyperhidrosis (principal); R53.83 Other fatigue; R53.1 Weakness
CPT/HCPCS: 36415; 80048; 84439; 84443; 85025

== ENCOUNTER → 2020-09-04 13:37 | Outpatient (CLI) | payer BC, SELFPAY ==
[2020-09-04 13:08] VITALS: BMI 27.2
[2020-09-04 14:55] LABS: Hematocrit 40.3 % (37-47); Hemoglobin 12.7 g/dL (12.0-15.0); Mean Corp Hgb Conc 31.5 g/dL (32-36); Mean Corpuscular Hgb 27.7 pg (27.0-32.0); Mean Corpuscular Volume 87.8 fL (81-99); Mean Platelet Vol. 11.5 fl (6.2-12.0); Platelet Count 273 K/mm3 (150-450); RBC Distribution Width CV 14.6 % (11.6-14.6); RBC Distribution Width SD 46.8 fl (35.1-43.9); Red Blood Count 4.59 M/mm3 (4.2-5.4)
[2020-09-04 15:23] LABS: Anion Gap 4 (5-15); BUN 16 mg/dL (7-18); Chloride 104 mmol/L (98-107); Creatinine, Serum 0.64 mg/dL (0.55-1.02); EST Glomerular Filtration Rate 99 mL/min (>60); Est Glom Filt Rate - Afr Amer 120 mL/min (>60); Glucose 91 mg/dL (74-106); Potassium 4.5 mmol/L (3.5-5.1); Sodium Level 139 mmol/L (136-145)
== END ==
PROVIDERS: PCP Family Medicine; Referring Provider Physician Assistant Medical; Visit Provider Physician Assistant Medical
DX: I48.92 Unspecified atrial flutter (principal)
CPT/HCPCS: 36415; 80048; 85027

== ENCOUNTER → 2021-01-28 13:14 | Outpatient (CLI) | payer BC, SELFPAY ==
--- NOTE | 2021-01-28 13:19 | BI_ITS ---
MAMMOGRAPHY - BILATERAL SCREENING REASON FOR EXAM: Female, 66 years old. Routine annual screening examination. PERTINENT HISTORY: Non-contributory. TECHNIQUE: Digital bilateral breast vicky (3D mammographic acquisition) in the CC and MLO projections. 2-D mediolateral oblique (MLO) and craniocaudad (CC) views of both breasts were obtained. CAD: Full Field Digital Mammography with Computer Added Detection was performed. COMPARISON: Comparison is made with prior study dated 05/19/2018 and 09/02/2016. FINDINGS: Breast Composition: The breasts are heterogeneously dense, which may obscure small masses. There are no dominant masses or suspicious calcifications. No other significant abnormalities are identified. There has been no significant change since the prior study. BI/SCRN MAMM (CAD)W/VICKY BILAT IMPRESSION: Stable bilateral screening mammogram. Yearly follow-up mammogram recommended. (A) ASSESSMENT CATEGORY: BIRADS Category 1: Negative. A letter regarding these results will be sent to the patient by the facility within 30 days. Approximately 10% of breast cancers are not detected by mammography. A normal mammogram should not delay biopsy of a clinically suspicious abnormality. [id number] Electronically Signed: Dexter Ferreira MD at 13:58 EST , Service support ,
== END ==
PROVIDERS: PCP Family Medicine; Referring Provider Family Medicine; Visit Provider Family Medicine
DX: Z12.31 Encounter for screening mammogram for malignant neoplasm of breast (principal)
CPT/HCPCS: 77063; 77067

== ENCOUNTER 2021-03-06 10:34 | Outpatient (CLI) | payer BC, SELFPAY ==
--- NOTE | 2021-03-06 10:39 | US_ITS ---
STUDY: ULTRASOUND BREAST - RIGHT REASON FOR EXAM: Female, 66 years old. Pain and mild swelling of the right axillary region. Patient has a history of a right upper extremity melanoma. TECHNIQUE: Axial and longitudinal images of the RIGHT breast were performed with a high resolution ultrasound transducer. # OF IMAGES: 51 COMPARISON: None. FINDINGS: RIGHT Breast: The right axillary region was examined by ultrasound. 3 benign appearing lymph nodes are seen. The largest measures 2.5 cm x 1.1 cm x 1 cm. US/Breast Limited Unilateral IMPRESSION: There are 3 benign-appearing lymph nodes in the right axilla. The largest measures 2.5 cm x 1.1 cm x 1 cm. ASSESSMENT CATEGORY: BIRADS Category 2: Benign. A letter regarding these results will be sent to the patient by the facility within 30 days. Electronically Signed: Dexter Ferreira MD at 12:30 EST ,
== END 2021-03-06 23:59 | disposition short-term general hospital (02) ==
PROVIDERS: PCP Family Medicine; Visit Provider Family Medicine
DX: M79.621 Pain in right upper arm (principal); N64.4 Mastodynia
CPT/HCPCS: 76642

== ENCOUNTER → 2021-06-04 | Outpatient (CLI) | payer OTHER, SELFPAY ==
--- NOTE | 2021-06-04 11:49 | US_ITS ---
STUDY: ULTRASOUND BREAST - RIGHT REASON FOR EXAM: Female, 66 years old. TECHNIQUE: Axial and longitudinal images of the RIGHT breast were performed with a high resolution ultrasound transducer. # OF IMAGES: 33 COMPARISON: None. FINDINGS: RIGHT Breast: There are 2 lesions in the right axilla. These have the appearance of probable lymph nodes. Posterior Enhancement: No Posterior Shadowing: No Margins: Well-defined Echogenicity: Compression effect on Shape: US/Breast Limited Unilateral IMPRESSION: There are 2 lesions in the right axilla possibly representing lymph nodes. Follow-up in 3 months recommended. ASSESSMENT CATEGORY: Electronically Signed: Bull Berg MD at 4:24 EDT ,
== END | disposition home or self-care (01) ==
PROVIDERS: PCP Family Medicine
DX: Z85.820 Personal history of malignant melanoma of skin (principal)
CPT/HCPCS: 76642

== ENCOUNTER 2022-03-10 08:52 | Emergency (ER) | payer MEDICARE, OTHER, SELFPAY ==
[2022-03-10] VITALS (10 sets, daily range): BP systolic 60–128; BP diastolic 37–86; PULSE 36–164; RESP 14–19; TEMP 36.1; O2SAT 94–98; BMI 26.0
--- NOTE | 2022-03-10 09:06 | RAD_ITS ---
STUDY: X-RAY CHEST REASON FOR EXAM: Female, 67 years old. Chest pain TECHNIQUE: Single AP portable view of the chest. COMPARISON: Comparison is made with prior study dated 02/11/2019. FINDINGS: EKG electrodes are seen. Mild persistent increased linear markings at the left lung base suggestive of a mild scarring. There is no demonstrated pleural abnormality. Normal size heart. Normal mediastinum and nancy. Normal visualized pulmonary arteries. There is atherosclerotic calcification of the aortic arch with tortuosity. There are diffuse degenerative changes of the visualized thoracic spine. Normal visualized ribs, clavicles, and shoulders. There is no demonstrated abnormality of the visualized soft tissue structures of the upper abdomen. RAD/Chest 1 View (Portable) IMPRESSION: Mild residual increased linear markings at the left lung base suggests a mild left basilar scarring. Electronically Signed: Dexter Ferreira MD at 9:57 EST ,
--- NOTE | 2022-03-10 09:06 | EKG12_ITS ---
Test Reason : CP Blood Pressure : / mmHG Vent. Rate : 156 BPM Atrial Rate : 000 BPM P-R Int : 000 ms QRS Dur : 072 ms QT Int : 288 ms P-R-T Axes : 000 015 -68 degrees QTc Int : 464 ms Atrial fibrillation with rapid ventricular response ST & T wave abnormality, consider inferolateral ischemia Abnormal ECG Confirmed by JESIKA BOLDEN, DIANE ([id number]), social media editor TIKI PRITCHARD ([id number]) on 03/11/2022 10:03:17 AM Referred By: TONEY Confirmed By:DIANE CANCHOLA MD
--- NOTE | 2022-03-10 09:06 | ED.VIS.CHEST ---
HPI History of Present Illness Chief Complaint: Chest Pain Detail of Chief Complaint: Chest pain Informant: patient Onset/Context/Timing Current Severity: 11/16 Narrative Narrative: Patient presents the emergency department chest discomfort that started approximately 1:30 AM. Patient describes retrosternal pressure with some numbness in the right arm. She feels short of breath. Patient's had similar episodes in the past with A-fib and is currently on Eliquis. She has no history of heart stents or coronary artery disease otherwise. Patient denies recent illness. She denies recent travel or surgery. She did take her Eliquis this morning as well as her Parkinson's medication and states normally in the morning she has low blood pressure due to that. She denies feeling lightheaded or dizzy. Prior Similar Symptoms: Yes PFSH PFSH Medical History Obstructive sleep apnea Parkinson disease Paroxysmal atrial fibrillation Paroxysmal atrial flutter Home Medications carbidopa 25 mg-levodopa 100 mg tablet 2 tab PO TID #540 tabs 08/29/18 [History Last Taken Unknown] apixaban 5 mg tablet 5 mg PO BID #180 tabs 09/01/21 [Rx Last Taken Unknown] metoprolol tartrate 25 mg tablet 12.5 mg PO BID #90 tabs 09/01/21 [Rx Last Taken Unknown] rasagiline 1 mg tablet 1 mg PO DAILY 03/10/22 [History Last Taken Unknown] Allergy/AdvReac Type Severity Reaction Status Date / Time detergent AdvReac Severe Respiratory Uncoded 03/10/22 08:57 problems Family History Mother No problems noted. Father Hypertension Surgical History History of tubal ligation Social History Smoking Status: Never smoker alcohol intake: never caffeine: Yes Type: carbonated beverages ROS ROS ED Review of Systems ROS Unobtainable: other Constitutional Constitutional ED: Reports lethargy; Denies chills, fever(s), sweats or weight loss Eyes Eyes: Denies blurry vision, change in vision or diplopia ENT ENT ED: Denies rhinorrhea or sore throat Cardiovascular Cardiovascular: Reports chest pain and racing heartbeat; Denies orthopnea Respiratory/Chest Respiratory/Chest: Reports dyspnea and dyspnea on exertion; Denies cough, orthopnea or sputum Gastrointestinal Gastrointestinal: Denies abdominal pain, diarrhea, nausea or vomiting Genitourinary Genitourinary ED: Denies dysuria, hematuria or urinary frequency Musculoskeletal Musculoskeletal: Denies arthralgias, back pain, myalgias or neck pain Integumentary Denies abscess, Abrasions or rash Neurologic Neurologic: Denies headache(s) or weakness Psychiatric Psychiatric: Denies anxiety, depression or suicidal thoughts Endocrine Endocrinology: Denies polydipsia, polyphagia or polyuria Hematologic/Lymphatic Hematologic/Lymphatic: Denies easy bleeding, easy bruising or lymphadenopathy Allergic/Immunologic Allergic/Immunologic ED: Denies mouth swelling, tongue swelling or urticaria EXAM Physical Exam Const Vital Signs: 03/10/22 08:54 03/10/22 09:24 03/10/22 09:15 Temperature 96.9 F L Temperature Source Temporal Pulse Rate 164 H 95 Pulse Rate [1 (Initial Baseline)] Pulse Rate [2] Pulse Rate [3] Pulse Rate [4] Pulse Rate [5] Pulse Rate [6] Respiratory Rate 18 18 Respiratory Rate [1 (Initial Baseline)] Respiratory Rate [2] Respiratory Rate [3] Respiratory Rate [4] Respiratory Rate [5] Respiratory Rate [6] Respiratory Effort Respiratory Pattern Blood Pressure 103/86 H 76/65 L Blood Pressure [1 (Initial Baseline)] Blood Pressure [2] Blood Pressure [3] Blood Pressure [4] Blood Pressure [6] Blood Pressure Mean 91 68 Pulse Ox 98 94 94 Oxygen Delivery Method Room Air Room Air Room Air Oxygen Delivery Method [1 (Initial Baseline)] Oxygen Delivery Method [2] Oxygen Delivery Method [3] Oxygen Delivery Method [4] Oxygen Delivery Method [5] Oxygen Delivery Method [6] Oxygen Flow Rate (L/min) [1 (Initial Baseline)] Oxygen Flow Rate (L/min) [2] Oxygen Flow Rate (L/min) [3] Oxygen Flow Rate (L/min) [4] Oxygen Flow Rate (L/min) [5] Oxygen Flow Rate (L/min) [6] 03/10/22 09:10 03/10/22 09:31 03/10/22 10:09 Temperature Temperature Source Pulse Rate 86 148 H Pulse Rate [1 (Initial Baseline)] Pulse Rate [2] Pulse Rate [3] Pulse Rate [4] Pulse Rate [5] Pulse Rate [6] Respiratory Rate 16 17 Respiratory Rate [1 (Initial Baseline)] Respiratory Rate [2] Respiratory Rate [3] Respiratory Rate [4] Respiratory Rate [5] Respiratory Rate [6] Respiratory Effort Normal Respiratory Pattern Normal Blood Pressure 90/67 98/50 L Blood Pressure [1 (Initial Baseline)] Blood Pressure [2] Blood Pressure [3] Blood Pressure [4] Blood Pressure [6] Blood Pressure Mean 74 Pulse Ox 94 94 Oxygen Delivery Method Room Air Room Air Oxygen Delivery Method [1 (Initial Baseline)] Oxygen Delivery Method [2] Oxygen Delivery Method [3] Oxygen Delivery Method [4] Oxygen Delivery Method [5] Oxygen Delivery Method [6] Oxygen Flow Rate (L/min) [1 (Initial Baseline)] Oxygen Flow Rate (L/min) [2] Oxygen Flow Rate (L/min) [3] Oxygen Flow Rate (L/min) [4] Oxygen Flow Rate (L/min) [5] Oxygen Flow Rate (L/min) [6] 03/10/22 10:11 03/10/22 10:39 03/10/22 10:44 Temperature Temperature Source Pulse Rate Pulse Rate [1 (Initial Baseline)] 148 H Pulse Rate [2] 37 L Pulse Rate [3] 36 L Pulse Rate [4] 46 L Pulse Rate [5] 47 L Pulse Rate [6] 54 L Respiratory Rate Respiratory Rate [1 (Initial Baseline)] 18 Respiratory Rate [2] 16 Respiratory Rate [3] 14 Respiratory Rate [4] 19 H Respiratory Rate [5] 18 Respiratory Rate [6] 18 Respiratory Effort Respiratory Pattern Blood Pressure Blood Pressure [1 (Initial Baseline)] 98/50 L Blood Pressure [2] 60/49 L Blood Pressure [3] 60/37 L Blood Pressure [4] 74/43 L Blood Pressure [6] 105/57 L Blood Pressure Mean Pulse Ox Oxygen Delivery Method Room Air Room Air Oxygen Delivery Method [1 (Initial Baseline)] Nasal Cannula Oxygen Delivery Method [2] Nasal Cannula Oxygen Delivery Method [3] Nasal Cannula Oxygen Delivery Method [4] Nasal Cannula Oxygen Delivery Method [5] Nasal Cannula Oxygen Delivery Method [6] Nasal Cannula Oxygen Flow Rate (L/min) [1 (Initial Baseline)] 2 Oxygen Flow Rate (L/min) [2] 4 Oxygen Flow Rate (L/min) [3] 4 Oxygen Flow Rate (L/min) [4] 4 Oxygen Flow Rate (L/min) [5] 4 Oxygen Flow Rate (L/min) [6] 4 03/10/22 10:49 Temperature Temperature Source Pulse Rate Pulse Rate [1 (Initial Baseline)] Pulse Rate [2] Pulse Rate [3] Pulse Rate [4] Pulse Rate [5] Pulse Rate [6] Respiratory Rate Respiratory Rate [1 (Initial Baseline)] Respiratory Rate [2] Respiratory Rate [3] Respiratory Rate [4] Respiratory Rate [5] Respiratory Rate [6] Respiratory Effort Respiratory Pattern Blood Pressure Blood Pressure [1 (Initial Baseline)] Blood Pressure [2] Blood Pressure [3] Blood Pressure [4] Blood Pressure [6] Blood Pressure Mean Pulse Ox Oxygen Delivery Method Room Air Oxygen Delivery Method [1 (Initial Baseline)] Oxygen Delivery Method [2] Oxygen Delivery Method [3] Oxygen Delivery Method [4] Oxygen Delivery Method [5] Oxygen Delivery Method [6] Oxygen Flow Rate (L/min) [1 (Initial Baseline)] Oxygen Flow Rate (L/min) [2] Oxygen Flow Rate (L/min) [3] Oxygen Flow Rate (L/min) [4] Oxygen Flow Rate (L/min) [5] Oxygen Flow Rate (L/min) [6] Positive well nourished and well developed General Appearance ED: well developed and NAD HEENT Reports TM's clear and moist mucous membranes normocephalic and atraumatic; Negative for trauma or tenderness Tympanic Membrane ED: Yes TM's clear Eyes PERRL and EOMs intact bilaterally General Eye ED: Negative for pale conjunctiva or scleral icterus Neck no lymphadenopathy, supple and no JVD General: Negative for tenderness Chest Wall inspection of chest normal and palpation of chest normal Chest: Negative for tenderness Resp normal respiratory effort and clear to auscultation bilaterally Effort and Inspection: Negative for respiratory distress or pain with movement Auscultation: Negative for rhonchi, wheezes or diminished lung sounds Cardio S1 normal heart sound, S2 normal heart sound and no murmurs; Negative for regular rate or regular rhythm Rate: tachycardic Rhythm: abnormal rhythm Peripheral Pulses: pulses 2+ throughout GI normal to inspection, nondistended, normoactive bowel sounds, soft to palpation, non-tender, non-distended and no masses Back/Spine no CVA tenderness and no thoracic nor lumbar tenderness Extremity normal to inspection General Extremety ED: Negative for edema General Extremity: Negative for edema Neuro oriented x3, CN's II-XII intact bilaterally, no sensory deficits noted and gait normal Sensorium / Orientation: awake, alert, oriented to person, oriented to place and oriented to time Motor Exam: strength 5/5 throughout and strength abnormal Psych mental status grossly normal Skin no rashes or lesions noted and no wounds MDM MDM MDM Narrative Medical decision making narrative: IV established on arrival. Patient placed on a satellite project site monitor. Patient presents with atrial fibrillation on satellite project site monitor with a heart rate in the 150s to 160s. Patient was ordered Cardizem 20 mg IV bolus. Patient's lab work up was essentially unremarkable. Troponin was normal despite patient having more than 8 hours with the pain. I believe her chest pain was related to the A-fib with rapid ventricular response. I did discuss case with cardiology and given that she is anticoagulated with the apixaban and has been compliant with her medications it was felt the patient could undergo cardioversion. Patient was procedurally consented for sedation and cardioversion. I explained risks benefits. Patient in agreement with proceeding with cardioversion. We did give her propofol 70 mg with good sedation and she was received 1 shock with 200 J synchronized cardioversion. Patient converted to a sinus bradycardia initially with heart rates in the 20s and 30s. Blood pressure was low with systolic in the 50s and 60s. Patient was given IV fluids and after 5 minutes she continued to have sinus bradycardia therefore she received 1 mg of atropine IV. Patient's heart rate improved into the 40s and 50s. Her blood pressure now normalized with systolic in the 1 teens. Patient tells me her normal heart rate is around 57. Patient was ambulated in department and did well. This point I will discharge the patient to home. She is to follow-up with cardiology. 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 Lab Data Attestation: I reviewed the patient's lab results. Labs: Laboratory Results - last 24 hr 03/10/22 03/10/22 09:05 09:05 WBC 11.2 H RBC 4.97 Hgb 14.4 Hct 44.5 MCV 89.5 MCH 29.0 MCHC 32.4 RDW Std Deviation 46.2 H RDW Coeff of Irasema 14.3 Plt Count 345 MPV 11.8 Immature Gran % (Auto) 0.400 Neut % (Auto) 76.8 H Lymph % (Auto) 15.7 L [place] % (Auto) 5.6 Eos % (Auto) 0.8 Baso % (Auto) 0.7 Absolute Neuts (auto) 8.6 H Absolute Lymphs (auto) 1.75 Nucleated RBC % 0 Sodium 143 Potassium 4.6 Chloride 111 H Carbon Dioxide 24.0 Anion Gap 8 BUN 12 Creatinine 0.83 Estim Creat Clear Calc 63.26 Est GFR (MDRD) Af Amer 89 Est GFR (MDRD) Non-Af 73 BUN/Creatinine Ratio 14.5 Glucose 123 H Calcium 9.3 Troponin I High Sens 16 Radiography Diagnostic Testing: Clinical Impression(s) from Imaging Studies Chest X-Ray 03/10/22 09:06 IMPRESSION: Mild residual increased linear markings at the left lung base suggests a mild left basilar scarring. Electronically Signed: Dexter Ferreira MD at 9:57 EST , 1 view chest x-ray obtained interpreted by myself as no acute evidence of infiltrate or pneumothorax. No acute disease process noted. Radiology in agreement but felt there was basilar atelectasis. EKG Initial EKG: Attestation: I personally reviewed and interpreted this EKG as follows: Comments: Atrial fibrillation with a ventricular rate of [address] changes Procedures Procedural Sedation 10: Consent Signed: Yes Any Problems With Anesthesia: No Sedation medication: Propofol Dose: 70 Route: IV Mallampati Score: Class I ASA Classification: I Critical Care Time Critical Care Time: Yes Critical care time (excluding procedures): Including time spent:, Discussing w/Patient &/or Family/Software Integrator, Discussing w/Consultants, Performing Direct Patient Care at Bedside and - (20 minutes) Discharge Plan Triage Chief Complaint: Chest Pain ED Provider: [place] Dx/Rx/DC Orders Clinical Impression: Atrial fibrillation with tachycardic ventricular rate, Atrial fibrillation status post cardioversion Instructions: ED AFIB Prescriptions: No Action carbidopa-levodopa 25-100 mg tablet 2 tab PO TID Qty: 540 Label Comments: TAKE 2 TABLETS BY MOUTH THREE TIMES DAILY. metoprolol tartrate 25 mg tablet 12.5 mg PO BID Qty: 90 3RF apixaban 5 mg tablet 5 mg PO BID Qty: 180 3RF rasagiline 1 mg tablet 1 mg PO DAILY Primary Care Provider: Micheal Martinez Referrals: Sandeep Smith MD [Med Staff - Active Staff] - 3-5 Days Micheal Martinez MD [Primary Care Provider] - Disposition Disposition: Home, Self Care
[2022-03-10 09:16] LABS: Absolute Lymphocyte Count 1.75 X10^3/uL (0.83-4.51); Absolute Neutrophil Count 8.6 X10^3/uL (2.0-7.7); Basophil# 0.08 X10^3/uL; Basophil% 0.7 % (0-1); Eosinophil# 0.09 X10^3/uL; Eosinophils% 0.8 % (0-5); Hematocrit 44.5 % (37-47); Hemoglobin 14.4 g/dL (12.0-15.0); Lymphocyte # 1.75 X10^3/ul (0.83-4.51); Lymphocyte % 15.7 % (19-41); Mean Corp Hgb Conc 32.4 g/dL (32-36); Mean Corpuscular Volume 89.5 fL (81-99); Mean Platelet Vol. 11.8 fl (6.2-12.0); Monocyte# 0.62 X10^3/uL; Monocyte% 5.6 % (0-10); NRBC Flagged by Analyzer 0 % (0-5); Neutrophil # 8.58 X10^3/uL (2.7-7.7); Neutrophil % 76.8 % (47-70); Platelet Count 345 K/mm3 (150-450); RBC Distribution Width CV 14.3 % (11.6-14.6); RBC Distribution Width SD 46.2 fl (35.1-43.9); Red Blood Count 4.97 M/mm3 (4.2-5.4); White Blood Count 11.2 K/mm3 (4.4-11.0)
[2022-03-10] MEDS: dilTIAZem 25 MG/5 ML Vial 20 MG IV BOLUS (09:19)
[2022-03-10] MEDS: 0.9% Normal Saline 1,000 ML 150 ML IV (09:22)
[2022-03-10 09:32] LABS: Anion Gap 8 (5-15); BUN 12 mg/dL (7-18); BUN/Creat Ratio 14.5 RATIO (10-20); Calcium,Total 9.3 mg/dL (8.5-10.1); Chloride 111 mmol/L (98-107); Creatinine, Serum 0.83 mg/dL (0.55-1.02); EST Glomerular Filtration Rate 73 mL/min (>60); Est Glom Filt Rate - Afr Amer 89 mL/min (>60); Estimated Creatinine Clearance 63.26 ml/min; Glucose 123 mg/dL (74-106); Potassium 4.6 mmol/L (3.5-5.1); Sodium Level 143 mmol/L (136-145); Troponin-I HS (w/2H Reflex) 16 pg/mL (3.0-54.0)
[2022-03-10] MEDS: Propofol 200 MG/20 ML Vial IV BOLUS (10:12)
[2022-03-10] MEDS: 0.9% Normal Saline 1,000 ML 999 ML IV (10:20)
[2022-03-10] MEDS: Atropine Sulfate 1 MG/10 ML Syringe IV (10:22)
[2022-03-10 11:12] LABS: Reflex Troponin-HS? (from REC) Y
== END 2022-03-10 12:18 | disposition home or self-care (01) ==
PROVIDERS: Emergency Provider Emergency Medicine; PCP Family Medicine; Visit Provider Emergency Medicine
DX: I48.0 Paroxysmal atrial fibrillation (principal); G20 Parkinson's disease; Z79.01 Long term (current) use of anticoagulants; Z79.899 Other long term (current) drug therapy
CPT/HCPCS: 71045; 80048; 84484; 85025; 92960; 93005; 96374; 96375; 99152; 99283; J7030; A4216

== ENCOUNTER 2023-06-07 09:38 | Emergency (ER) | payer MEDICARE, OTHER, SELFPAY ==
[2023-06-07 09:39] VITALS: BP 140/94; PULSE 65; RESP 16; TEMP 36.7; O2SAT 97; BMI 24.8
--- NOTE | 2023-06-07 09:43 | CT_ITS ---
STUDY: CT BRAIN WITHOUT CONTRAST REASON FOR EXAM: Female, 68 years old. INJURY RADIATION DOSAGE (If Supplied By Facility): CTDIvol = ( 44.99 ) mGy, DLP = ( 796.11 ) mGycm TECHNIQUE: Transaxial CT imaging of the brain was performed without administration of intravenous contrast material. Individualized dose optimization techniques were used for this CT. COMPARISON: No relevant priors. FINDINGS: Normal soft tissue structures. Normal calvarium. There is mild cerebral atrophy with widening of the extra-axial spaces and ventricular dilatation. Normal white matter tracts of the cerebral hemispheres. Normal basal ganglia and thalami. Normal brainstem. Normal cerebellum. There is no intracranial hemorrhage. There are no findings of an acute ischemic infarction. Normal visualized paranasal sinuses. CT/Brain/Head without Contrast IMPRESSION: Chronic involutional changes of the brain. Electronically Signed: Dexter Ferreira MD at 10:17 EDT ,
--- NOTE | 2023-06-07 09:56 | EX.ED.GENINJ ---
HPI History of Present Illness Chief Complaint: Head Injury Informant: patient Onset/Context/Timing Onset: Today Mechanism/Context: Fall Quality of Pain: Stabbing Location: Right temporal area Worsened by: Nothing Relieved by: Nothing Associated Symptoms Associated Symptoms: Negative for Parasthesias, Weakness, Loss of function, Inability to ambulate, Loss of consciousness or Amnesia Narrative Narrative: Patient presents with a head injury that occurred today. Patient states she fell and hit her head. Patient states she hit the right side of her head. Patient denies any loss of consciousness. Patient is on Eliquis for atrial fibrillation. Patient states she was told to come to the emergency department for CT scan. Patient admits to a mild headache. Patient states it is localized to the right side of her head. Patient denies any visual changes. Patient denies any nausea or vomiting. [facility] Medical History Obstructive sleep apnea Parkinson disease Paroxysmal atrial fibrillation Paroxysmal atrial flutter Home Medications carbidopa 25 mg-levodopa 100 mg tablet 1.5 tab PO 4X/DAY #540 tabs 03/23/22 [History Last Taken Unknown] rasagiline 1 mg tablet 1 mg PO .COMPLEX 03/23/22 [History Last Taken Unknown] apixaban 5 mg tablet 5 mg PO BID #180 tabs 10/07/22 [Rx Last Taken Unknown] clonidine HCl 0.1 mg tablet 0.1 mg PO DAILY PRN elevated BP #20 tabs 11/23/22 [Rx Last Taken Unknown] metoprolol tartrate 25 mg tablet 12.5 mg (1/2 x 25 mg) PO BID #90 tabs 05/25/23 [Rx Last Taken Unknown] Allergy/AdvReac Type Severity Reaction Status Date / Time Environmental Allergies: AdvReac respiratory Verified 06/07/23 09:41 Uncoded problems Family History Mother No problems noted. Father Hypertension Surgical History History of cardioversion (~03/10/22) History of tubal ligation Social History Smoking Status: Never smoker alcohol intake: never substance use type: does not use caffeine: Yes Type: carbonated beverages ROS ROS ED Constitutional Constitutional ED: Denies chills or fever(s) Eyes Eyes: Denies blurry vision or change in vision ENT ENT ED: Denies rhinorrhea or sore throat Cardiovascular Cardiovascular: Denies chest pain or palpitations Respiratory/Chest Respiratory/Chest: Denies cough or dyspnea Gastrointestinal Gastrointestinal: Denies nausea or vomiting Genitourinary Genitourinary ED: Denies dysuria or hematuria Musculoskeletal Musculoskeletal: Denies back pain or neck pain Integumentary Denies abscess or rash Neurologic Neurologic: Reports headache(s); Denies weakness Allergic/Immunologic Allergic/Immunologic ED: Denies mouth swelling or urticaria EXAM Physical Exam Const Vital Signs: 06/07/23 09:39 06/07/23 09:45 Temperature 98.1 F Temperature Source Temporal Pulse Rate 65 Respiratory Rate 16 Respiratory Effort Normal Blood Pressure 140/94 H Blood Pressure Mean 109 Pulse Ox 97 Oxygen Delivery Method Room Air Positive well nourished and well developed General Appearance ED: well developed and NAD HEENT HEENT Narrative: There is tenderness with mild edema and ecchymosis over the right temporal area. There is no bony crepitance or step-off noted. There are no lacerations noted. There is no bleeding noted. Eyes PERRL and EOMs intact bilaterally Neck full ROM Resp normal respiratory effort and clear to auscultation bilaterally Cardio Rate: regular rate Rhythm: abnormal rhythm irregularly irregular GI non-tender and non-distended Palpation: soft Neuro oriented x3, CN's II-XII intact bilaterally, moves all extremities, no focal motor deficits and no sensory deficits noted [place] Coma Scale: document GCS findings Spontaneous Obeys Commands Oriented 15 Sensorium / Orientation: alert Motor Exam: strength 5/5 throughout Psych mental status grossly normal and thought process normal MDM MDM MDM Narrative Medical decision making narrative: Differential diagnosis includes intracranial bleeding, and closed head injury. CT scan of the brain will be obtained to assess for intracranial bleeding. Radiography Diagnostic Testing: Clinical Impression(s) from Imaging Studies Brain CT 06/07/23 09:43 IMPRESSION: Chronic involutional changes of the brain. Electronically Signed: Dexter Ferreira MD at 10:17 EDT , CT scan of the brain was obtained. There is no acute intracranial abnormality. There are chronic involutional changes noted. This was interpreted by the radiologist and was also independently reviewed by myself. Treatment and Re-Evaluation Narrative: Patient was advised of her findings. Patient was instructed use ice to the area. Patient was instructed to take Tylenol as needed for pain. Patient was instructed to follow-up with her primary care physician in 5 to 7 days. Patient understood and was agreeable with the plan. All questions were answered. Discharge Plan Triage Chief Complaint: Head Injury ED Provider: Héctor Savage Dx/Rx/DC Orders Clinical Impression: Closed head injury, Parkinson's disease, Fall Instructions: ED Head Injury (Adult) Prescriptions: No Action carbidopa-levodopa 25-100 mg tablet 1.5 tab PO 4X/DAY Qty: 540 rasagiline 1 mg tablet 1 mg PO .COMPLEX Rx Instructions: 1 mg orally daily at 10:30 am; apixaban 5 mg tablet 5 mg PO BID Qty: 180 3RF clonidine HCl 0.1 mg tablet 0.1 mg PO DAILY PRN (Reason: elevated BP) Qty: 20 0RF metoprolol tartrate 25 mg tablet 12.5 mg PO BID Qty: 90 3RF Primary Care Provider: Mark Walls Referrals: Mark Walls DO [Primary Care Provider] - 5-7 Days Disposition Disposition: Home, Self Care
[2023-06-07 10:44] VITALS: BP 138/76; PULSE 82; RESP 14; TEMP 36.6; O2SAT 100
== END 2023-06-07 10:46 | disposition home or self-care (01) ==
LOC: ED 10:24
PROVIDERS: Emergency Provider Emergency Medicine; PCP Family Medicine; Visit Provider Emergency Medicine
DX: S09.90XA Unspecified injury of head, initial encounter (principal); G20.C Parkinsonism, unspecified; I48.0 Paroxysmal atrial fibrillation; G47.33 Obstructive sleep apnea (adult) (pediatric); Z79.01 Long term (current) use of anticoagulants; W19.XXXA Unspecified fall, initial encounter
CPT/HCPCS: 70450; 99282

== ENCOUNTER 2023-07-08 11:03 | Emergency (ER) | payer MEDICARE, OTHER, SELFPAY ==
[2023-07-08 11:03] VITALS: BP 115/66; PULSE 60; RESP 14; TEMP 36.3; O2SAT 97
--- NOTE | 2023-07-08 11:33 | EDS_ITS ---
<Statement entered by Lucía Claudio MD - 07/08/23 18:08> I have personally performed a face to face assessment of the patient and have reviewed the MARIAA Note. Patient presents secondary to continued headaches, intermittent confusion, dizziness. Patient fell and hit her head about a month ago. Since that time she has had intermittent dizzy spells with mild head pain and weakness. She was seen by her PCP today and advised to come to the emergency room for repeat head imaging. She denies fever or chills. No urinary symptoms. Patient sitting upright in bed no acute distress. Head and neck examination unremarkable. Heart is regular rate and rhythm. Lung sounds are clear. Abdomen is soft and nontender. Neuro exam reveals no focal deficit. CBC and chemistry studies are unremarkable. Urinalysis reveals 1+ bacteria with 0-5 white cells and no nitrites. She does not have any urinary symptoms. CT scan of the head reveals no acute findings. Chest x-ray per my interpretation feels no evidence of focal infiltrate. Radiology interpretation reviewed and agrees. On repeat exam patient resting comfortably. I did discuss with her that concussions can persist for up to 6 weeks after a head injury. At this time I see no other acute findings as a cause of her symptoms. We discussed brain rest to try to help with the healing process. She will continue supportive measures and return instructions were provided. HPI History of Present Illness Chief Complaint: Weakness Narrative Narrative: Patient presenting today due to generalized weakness that she has had over the past several weeks. She reports that it has been worse over the past 3 days, she feels very fatigued. She went to see her PCP today and had an episode of dizziness that she describes as feeling like her head was spinning and also felt like she was going to pass out. She has had intermittent headaches over the past month ever since falling and hitting her head about a month ago. She was evaluated in the ED at that time and did have a CT scan of her head which was negative for any acute findings. Her PCP today encouraged that she come into the emergency department for reevaluation and possible CT scan of the head. She reports a history of Parkinson's disease and atrial fibrillation on Eliquis. She denies fevers, chills, abdominal pain, nausea, vomiting, and urinary symptoms. [facility] Medical History Parkinson disease Paroxysmal atrial flutter Obstructive sleep apnea Paroxysmal atrial fibrillation Home Medications ?Medication ?Instructions ?Recorded ?Last Taken ?Type rasagiline 1 mg tablet 1 mg PO .COMPLEX 03/23/22 Unknown History apixaban 5 mg tablet 5 mg PO BID #180 tabs 10/07/22 Unknown Rx clonidine HCl 0.1 mg tablet 0.1 mg PO DAILY PRN elevated BP 11/23/22 Unknown Rx #20 tabs metoprolol tartrate 25 mg tablet 12.5 mg (1/2 x 25 mg) PO BID #90 05/25/23 Unknown Rx tabs carbidopa ER 23.75 mg-levodopa 95 3 cap PO 4X/DAY 07/08/23 Unknown History mg capsule,extended release (Rytary) Allergy/AdvReac Type Severity Reaction Status Date / Time Environmental Allergies: AdvReac respiratory Verified 07/08/23 11:04 Uncoded problems Family History Mother No problems noted. Father Hypertension Surgical History History of cardioversion (~03/10/22) History of tubal ligation Social History Smoking Status: Never smoker alcohol intake: never substance use type: does not use caffeine: Yes Type: carbonated beverages ROS ROS ED Constitutional Constitutional ED: Denies chills or fever(s) Cardiovascular Cardiovascular: Denies chest pain Respiratory/Chest Respiratory/Chest: Denies cough or dyspnea Gastrointestinal Gastrointestinal: Denies abdominal pain, nausea or vomiting Genitourinary Genitourinary ED: Denies dysuria or urinary urgency Musculoskeletal Musculoskeletal: Denies arthralgias or myalgias Integumentary Denies rash Neurologic Neurologic: Reports dizziness, headache(s) and weakness EXAM Physical Exam Const Vital Signs: 07/08/23 11:03 07/08/23 11:41 07/08/23 13:03 Temperature 97.3 F L Temperature Source Temporal Pulse Rate 60 60 Respiratory Rate 14 18 Respiratory Effort Normal Non-Labored Blood Pressure 115/66 118/64 Blood Pressure Mean 82 82 Pulse Ox 97 98 Oxygen Delivery Method Room Air Room Air 07/08/23 13:41 Temperature 98.4 F Temperature Source Pulse Rate 60 Respiratory Rate 18 Respiratory Effort Blood Pressure 118/64 Blood Pressure Mean 82 Pulse Ox 98 Oxygen Delivery Method Positive well nourished, well developed and no apparent distress General Appearance ED: well developed HEENT Reports normocephalic and head/scalp atraumatic Mouth ED: Yes moist mucous membranes normal Eyes PERRL and EOMs intact bilaterally Neck full ROM and supple Chest Wall inspection of chest normal Resp normal respiratory effort and clear to auscultation bilaterally Cardio regular rate and regular rhythm GI soft to palpation, non-tender, non-distended and no masses Back/Spine normal ROM and normal to inspection Extremity normal to inspection and full ROM Neuro oriented x3, CN's II-XII intact bilaterally, moves all extremities, no focal motor deficits and no sensory deficits noted Sensorium / Orientation: awake and alert Coordination / Balance: proklc-fh-rprc test normal, lnla-qg-hkyr test normal, rapid alternating mvmt upper ext normal and rapid alternating mvmt lower ext normal Psych mental status grossly normal and thought process normal Skin no rashes or lesions noted and no wounds MDM MDM MDM Narrative Medical decision making narrative: Patient presenting with generalized weakness and dizziness. Dizziness occurred while she was at her PCPs office and she reports that this has resolved. Her PCP thought that she needed another CT scan of her head as she has had intermittent headaches over the past month after falling and hitting her head about a month ago. Blood workup will be obtained to rule out leukocytosis, anemia, electrolyte abnormality, KASIA, UTI. Chest x-ray will be obtained to rule out cardiopulmonary abnormality. She will be given IV fluids. CT scan of the head will be obtained. Her workup overall is unremarkable. CT negative for any acute findings. On reexamination she appears stable, I have encouraged that she follow-up with her PCP. She likely has a concussion and will be given concussion precautions. She will be discharged home in stable condition. Lab Data Attestation: I reviewed the patient's lab results. Labs: Laboratory Results - last 24 hr 07/08/23 11:35 WBC 5.0 RBC 4.76 Hgb 13.2 Hct 41.1 MCV 86.3 MCH 27.7 MCHC 32.1 RDW Std Deviation 41.7 RDW Coeff of Irasema 13.4 Plt Count 215 MPV 12.1 H Immature Gran % (Auto) 0.000 Neut % (Auto) 56.9 Lymph % (Auto) 33.5 [place] % (Auto) 7.0 Eos % (Auto) 1.6 Baso % (Auto) 1.0 Absolute Neuts (auto) 2.9 Absolute Lymphs (auto) 1.68 Nucleated RBC % 0 Sodium 138 Potassium 4.2 Chloride 106 Carbon Dioxide 27.0 Anion Gap 5 BUN 11 Creatinine 0.72 Estim Creat Clear Calc 70.22 Est GFR (MDRD) Af Amer 103 Est GFR (MDRD) Non-Af 86 BUN/Creatinine Ratio 15.2 Glucose 92 Calcium 9.2 Urine Color Yellow Urine Clarity Clear Urine pH 6.5 Ur Specific [place] 1.005 Urine Protein Negative Urine Glucose (UA) Normal Urine Ketones Negative Urine Occult Blood 10 H Urine Nitrite Negative Urine Bilirubin Negative Urine Urobilinogen Normal Ur Leukocyte Esterase 500 H Urine RBC 0-5 SEEN Urine WBC 0-5 SEEN Ur Squamous Epith Cells 0-5 SEEN Urine Bacteria 1+ Urine Mucus 0 SEEN Radiography X-Ray: Read by ED Physician Diagnostic Testing: Clinical Impression(s) from Imaging Studies Brain CT 07/08/23 11:42 IMPRESSION: Chronic involutional changes of the brain. Electronically Signed: Dexter Ferreira MD at 12:01 EDT , Chest X-Ray 07/08/23 11:45 IMPRESSION: Stable mild linear scarring at the lung bases. Electronically Signed: Dexter Ferreira MD at 12:05 EDT , Discharge Plan Triage Chief Complaint: Weakness ED Midlevel Provider: Jina Nelson ED Provider: Lucía Claudio Dx/Rx/DC Orders Clinical Impression: Concussion, Weakness Instructions: Concussion Dc, ED Weakness (Uncertain Cause) Prescriptions: No Action rasagiline 1 mg tablet 1 mg PO .COMPLEX Rx Instructions: 1 mg orally daily at 10:30 am; Rytary 23.75-95 mg capsule, extended release 3 cap PO 4X/DAY apixaban 5 mg tablet 5 mg PO BID Qty: 180 3RF clonidine HCl 0.1 mg tablet 0.1 mg PO DAILY PRN (Reason: elevated BP) Qty: 20 0RF metoprolol tartrate 25 mg tablet 12.5 mg PO BID Qty: 90 3RF Primary Care Provider: Roge Card Referrals: Mark Walls DO [Med Staff - [facility]] - 3-5 Days if not improving Activity Restrictions/Additional Instructions: Follow-up with your PCP and return for any worsening of your symptoms. Print Language: Amharic Disposition Disposition: Home, Self Care Discharge Date/Time: 07/08/23 13:42
[2023-07-08 11:37] VITALS: BMI 25.5
[2023-07-08] MEDS: 0.9% Normal Saline (1000mL) 1,000 ML 999 ML IV (11:38)
[2023-07-08 11:40] LABS: Mucous, Urine 0 SEEN /hpf (<or=2+)
--- NOTE | 2023-07-08 11:42 | CT_ITS ---
STUDY: CT BRAIN WITHOUT CONTRAST REASON FOR EXAM: Female, 68 years old. Dizziness, headache RADIATION DOSAGE (If Supplied By Facility): CTDIvol = ( 44.99 ) mGy, DLP = ( 863.60 ) mGycm TECHNIQUE: Transaxial CT imaging of the brain was performed without administration of intravenous contrast material. Individualized dose optimization techniques were used for this CT. COMPARISON: Comparison is made with prior study dated June 07, 2023. FINDINGS: Normal soft tissue structures. Normal calvarium. There is mild cerebral atrophy with widening of the extra-axial spaces and ventricular dilatation. Normal white matter tracts of the cerebral hemispheres. Normal basal ganglia and thalami. Normal brainstem. Normal cerebellum. There is no intracranial hemorrhage. There are no findings of an acute ischemic infarction. Normal visualized paranasal sinuses. CT/Brain/Head without Contrast IMPRESSION: Chronic involutional changes of the brain. Electronically Signed: Dexter Ferreira MD at 12:01 EDT ,
[2023-07-08 11:43] LABS: Absolute Lymphocyte Count 1.68 X10^3/uL (0.83-4.51); Absolute Neutrophil Count 2.9 X10^3/uL (2.0-7.7); Basophil# 0.05 X10^3/uL; Eosinophil# 0.08 X10^3/uL; Eosinophils% 1.6 % (0-5); Hematocrit 41.1 % (37-47); Hemoglobin 13.2 g/dL (12.0-15.0); Lymphocyte # 1.68 X10^3/ul (0.83-4.51); Lymphocyte % 33.5 % (19-41); Mean Corp Hgb Conc 32.1 g/dL (32-36); Mean Corpuscular Hgb 27.7 pg (27.0-32.0); Mean Corpuscular Volume 86.3 fL (81-99); Mean Platelet Vol. 12.1 fl (6.2-12.0); Monocyte# 0.35 X10^3/uL; NRBC Flagged by Analyzer 0 % (0-5); Neutrophil # 2.85 X10^3/uL (2.7-7.7); Neutrophil % 56.9 % (47-70); Platelet Count 215 K/mm3 (150-450); RBC Distribution Width CV 13.4 % (11.6-14.6); RBC Distribution Width SD 41.7 fl (35.1-43.9); Red Blood Count 4.76 M/mm3 (4.2-5.4)
--- NOTE | 2023-07-08 11:45 | RAD_ITS ---
STUDY: X-RAY CHEST REASON FOR EXAM: Female, 68 years old. Weakness TECHNIQUE: Single AP portable view of the chest. COMPARISON: Comparison is made with prior study of March 10, 2022. FINDINGS: Surgical clips are seen in the right axilla. Mild increased linear markings at the lung bases likely more prominent at the left lung base suggestive of scarring. There is no demonstrated pleural abnormality. Normal size heart. Normal mediastinum and nancy. Normal visualized pulmonary arteries. There is atherosclerotic calcification of the aortic arch with tortuosity. There are diffuse degenerative changes of the visualized thoracic spine. Normal visualized ribs, clavicles, and shoulders. There is no demonstrated abnormality of the visualized soft tissue structures of the upper abdomen. RAD/Chest 1 View (Portable) IMPRESSION: Stable mild linear scarring at the lung bases. Electronically Signed: Dexter Ferreira MD at 12:05 EDT ,
[2023-07-08 11:51] LABS: Color, Urine Yellow (Yellow); Glucose, Dipstick Normal (Normal); Ketone-Dipstick Negative (Negative); Leukocyte Esterase-Dipstick 500 /ul (Negative); Nitrite-Dipstick Negative (Negative); Occult Blood-Urine 10 /ul (Negative); Protein-Dipstick Negative (Negative); Specific Gravity, Urine 1.005 (1.002-1.030); Urine Bilirubin Dipstick Negative (Negative); Urine Clarity Clear (Clear); Urine Urobilinogen Normal (Normal); Urine pH 6.5 (5.0 - 8.0)
[2023-07-08 11:58] LABS: Anion Gap 5 (5-15); BUN 11 mg/dL (7-18); BUN/Creat Ratio 15.2 RATIO (10-20); Bacteria 1+ /hpf (None Seen); Calcium,Total 9.2 mg/dL (8.5-10.1); Chloride 106 mmol/L (98-107); Creatinine, Serum 0.72 mg/dL (0.55-1.02); EST Glomerular Filtration Rate 86 mL/min (>60); Est Glom Filt Rate - Afr Amer 103 mL/min (>60); Estimated Creatinine Clearance 70.22 ml/min; Glucose 92 mg/dL (74-106); Potassium 4.2 mmol/L (3.5-5.1); Red Blood Cells-Urine 0-5 SEEN /hpf (0-5); Sodium Level 138 mmol/L (136-145); Squamous Epithelial Cells - UA 0-5 SEEN /hpf (5-10); White Blood Cells 0-5 SEEN /hpf (0-5)
[2023-07-08 13:03] VITALS: BP 118/64; PULSE 60; RESP 18; O2SAT 98
[2023-07-08 13:41] VITALS: BP 118/64; PULSE 60; RESP 18; TEMP 36.9; O2SAT 98
== END 2023-07-08 13:42 | disposition home or self-care (01) ==
PROVIDERS: Physician Assistant; Emergency Provider Emergency Medicine; PCP Family Medicine; Visit Provider Emergency Medicine
DX: S06.0X0A Concussion without loss of consciousness, initial encounter (principal); G20.C Parkinsonism, unspecified; R53.1 Weakness; G47.33 Obstructive sleep apnea (adult) (pediatric); X58.XXXA Exposure to other specified factors, initial encounter
CPT/HCPCS: 70450; 71045; 80048; 81001; 85025; 99282; A4216

== ENCOUNTER 2023-09-19 03:31 | Inpatient (IN) | payer MEDICARE, OTHER, SELFPAY ==
[2023-09-19] VITALS (41 sets, daily range): BP systolic 90–189; BP diastolic 45–115; PULSE 41–169; RESP 15–23; TEMP 36.1–36.6; O2SAT 92–97; BMI 25.0; BMI 24.4
--- NOTE | 2023-09-19 03:37 | EX.ED.DYSGE1 ---
HPI History of Present Illness Chief Complaint: Chest Pain [facility] Medical History Parkinson disease Paroxysmal atrial flutter Obstructive sleep apnea Paroxysmal atrial fibrillation Home Medications ?Medication ?Instructions ?Recorded ?Last Taken ?Type rasagiline 1 mg tablet 1 mg PO .COMPLEX 03/23/22 Unknown History apixaban 5 mg tablet 5 mg PO BID #180 tabs 10/07/22 Unknown Rx metoprolol tartrate 25 mg tablet 12.5 mg (1/2 x 25 mg) PO BID #90 05/25/23 Unknown Rx tabs carbidopa ER 23.75 mg-levodopa 95 1.5 cap PO 4X/DAY 07/08/23 Unknown History mg capsule,extended release (Rytary) Allergy/AdvReac Type Severity Reaction Status Date / Time Environmental Allergies: AdvReac respiratory Verified 09/19/23 03:38 Uncoded problems Family History Mother No problems noted. Father Hypertension Surgical History History of cardioversion (~03/10/22) History of tubal ligation Social History household members: spouse Smoking Status: Never smoker alcohol intake: never substance use type: does not use caffeine: Yes Type: carbonated beverages EXAM Physical Exam Const Vital Signs: 09/19/23 03:32 09/19/23 03:36 09/19/23 03:40 Temperature 97 F L Temperature Source Temporal Pulse Rate 169 H Respiratory Rate 21 H Respiratory Effort Normal Blood Pressure 189/71 H Blood Pressure Mean 110 Pulse Ox 97 Oxygen Delivery Method Room Air Room Air 09/19/23 04:31 09/19/23 05:00 Temperature Temperature Source Pulse Rate 66 131 H Respiratory Rate 15 22 H Respiratory Effort Blood Pressure 153/115 H 131/99 H Blood Pressure Mean 127 109 Pulse Ox 95 94 Oxygen Delivery Method Room Air Room Air MDM MDM MDM Narrative Medical decision making narrative: HISTORY OF PRESENT ILLNESS: 58-year-old female presents with chest pain. Notes that started approximately 1 hour prior to arrival 2:30 AM. Pain is midsternal, nonradiating. Denies shortness of breath. Denies leg swelling. Notes history of A-fib and Parkinson's. Denies bleeding diathesis. Denies any volume such as vomiting or diarrhea. Denies any recent illnesses, cough, fever or chills. The patient denies recent surgery in the last 4 weeks or immobilization in the last 3 days, denies previous diagnosis of DVT or PE, hemoptysis, unilateral leg swelling or malignancy with treatment the last 6 months or palliative. No estrogen use noted. Patient denies sudden onset of pain, no tearing sensation, no migratory symptoms, no new numbness, weakness or loss of sensation. Patient denies family history or personal history of Connective tissue disorders (Marfan's Syndrome, Fernando Danlos etc) REVIEW OF SYSTEMS: Pertinent positives: Chest pain Pertinent negatives: Shortness of breath, chest pain PHYSICAL EXAM: Nursing triage notes reviewed, Vital signs reviewed Constitutional: please see mdm HENT: MMM Eyes: Pupils equal round and reactive to light, Extraocular muscles intact Neck: No stridor, no JVD, full neck ROM Lungs: Clear to auscultation, No wheezing or rales. No increased work of breathing, no conversational dyspnea, no accessory muscle use, no nasal flaring. No respiratory distress noted Heart: R Fast irregular rate and rhythm, No murmurs, No rubs and No gallops, 2+ distal pulses (radial, femoral, posterior tibial) in all extremities Abdomen: Soft, there is no tenderness, rigidity, rebound or guarding, no obvious peritoneal signs, no palpable pulsatile abdominal masses, no auscultated abdominal bruit : No CVAT Extremities: No edema Neuro: No focal neurological deficits, cranial nerves II through XII intact, 5/5 strength in all extremities. Intact sensation to light touch in all extremities, 2+ reflexes bilateral patella tendons. Normal gait. No ataxia. Skin: No rash or lesions noted MEDICAL DECISION MAKING: Chief Complaint: Chest pain External records reviewed: Prior imaging reviewed. Last echocardiogram from 2018 shows ejection fraction 60% Factors affecting care: Atrial fibrillation on Eliquis Social determinants of health: none History obtained from others: EMS Consults: Cardiology (Dr. Reynolds), Internal Medicine (Dr. Rose). [facility] Narrative: Patient was initially hypertensive with a blood pressure 189/71, tachycardic with initial rate of 169, tachypneic, afebrile. Exam with fast irregular rate consistent with likely A-fib. Lungs were clear. No signs of lower extremity edema. No stigmata of infection or VTE. I considered pulm embolism as a potential etiology the patient elevated heart rate and chest pain however patient had a low risk Wells score in addition to that she is on Eliquis which makes PE less likely. I consider obtaining a CT of the chest however I considered the following differential diagnosis: Arrhythmia, anemia, electrolyte abnormality, PE, CHF, pneumonia,, Aortic dissection IVs placed, patient placed on monitor. 500 cc IV normal saline bolus given, 5 mg of IV metoprolol given every 5 given initial concern for A-fib ALL IMAGES (IF OBTAINED) HAVE BEEN PERSONALLY REVIEWED AND INTERPRETED BY MYSELF. EKG shows A-fib with RVR, normal axis, normal intervals, noted diffuse ST depressions concerning for subendocardial ischemia. Similar to prior EKG reviewed from March 2022 in which patient was A-fib with RVR High-sensitivity troponin is negative, no evidence of myocardial ischemia I have personally reviewed the patient's chest x-ray. Chest x-ray is unremarkable for pulmonary edema, pneumothorax, pneumonia or focal cardiopulmonary abnormality. Magnesium within normal limits CBC without leukocytosis, severe anemia, no thrombocytopenia. BMP without evidence of significant electrolyte abnormalities, no anion gap, no acute kidney injury. Patient was given 3 doses of metoprolol without improvement . She was then given 1 dose of 20 mg of diltiazem. EKG with rate controlled atrial fibrillation (83 bpm), noted resolution of ST depressions likely rate related to improve rate, no STEMI. As the patient was being monitored waiting for second troponin and heart rate noted to return back up to the 140s to 130s. At this point I discussed with cardiology Dr. Reynolds who recommended starting patient diltiazem drip and admit for rate control and cardiology consultation. Discussed with hospitalist who recommended admitting to the PCU. The patient and/or family, caregivers express understanding. The patient and/or family, caregivers agrees with the plan. Shared decision making: I will have a discussion with the patient and or visitors regarding risk/benefits of further testing or admission. They will be made aware of of the risk/benefits inherent in this decision they will be given the opportunity to voice understanding. Total critical care time today provided was at least 35 minutes. This excludes separately billable procedures. Critical care time (if documented) is secondary to the patient having high probability of clinically significant/life threatening deterioration in the patient's condition which required my urgent intervention. Impression: 1. Atrial fibrillation with RVR 2. Chest pain 3. History of anticoagulation Dispo: Admit to PCU This note was generated with [employer] dictation software. It may contain incorrect words, spelling, and punctuation that were not noted in review of the chart prior to signing. Lab Data Labs: Laboratory Results - last 24 hr 09/19/23 03:30 WBC 8.9 RBC 4.74 Hgb 13.3 Hct 41.2 MCV 86.9 MCH 28.1 MCHC 32.3 RDW Std Deviation 46.6 H RDW Coeff of Irasema 14.6 Plt Count 286 MPV 11.7 Immature Gran % (Auto) 0.200 Neut % (Auto) 60.0 Lymph % (Auto) 29.7 [place] % (Auto) 6.8 Eos % (Auto) 2.1 Baso % (Auto) 1.2 H Absolute Neuts (auto) 5.3 Absolute Lymphs (auto) 2.63 Nucleated RBC % 0 Sodium 137 Potassium 3.9 Chloride 106 Carbon Dioxide 26.0 Anion Gap 5 BUN 24 H Creatinine 0.66 Estim Creat Clear Calc 64.76 Est GFR (MDRD) Af Amer 114 Est GFR (MDRD) Non-Af 94 BUN/Creatinine Ratio 36.1 H Glucose 117 H Calcium 9.8 Magnesium 2.1 Troponin I High Sens 4 Radiography Diagnostic Testing: Clinical Impression(s) from Imaging Studies Chest X-Ray 09/19/23 03:40 IMPRESSION: No evidence of active intrathoracic disease. Electronically Signed: Kadi Cohen MD at 4:41 EDT , Discharge Plan Triage Chief Complaint: Chest Pain ED Provider: Macho Tejada Dx/Rx/DC Orders Prescriptions: No Action rasagiline 1 mg tablet 1 mg PO .COMPLEX Rx Instructions: 1 mg orally daily at 10:30 am; Rytary 23.75-95 mg capsule, extended release 1.5 cap PO 4X/DAY Rx Instructions: takes med at 0630 1100 1530 2000 apixaban 5 mg tablet 5 mg PO BID Qty: 180 3RF metoprolol tartrate 25 mg tablet 12.5 mg PO BID Qty: 90 3RF Primary Care Provider: Roge Card Referrals: Roge Card MD [Primary Care Provider] - Print Language: Bolivian
--- NOTE | 2023-09-19 03:40 | RAD_ITS ---
INDICATION: CP EXAMINATION/TECHNIQUE: X-RAY - XR Chest 1 View AP portable. 4:10 AM COMPARISON: 07/08/2023 FINDINGS: LINES/DEVICES: None. LUNGS: No consolidation. No pneumothorax. MEDIASTINUM: The aorta is atherosclerotic. CARDIAC SILHOUETTE: Not enlarged. BONES AND SOFT TISSUES: No acute abnormalities. RAD/Chest 1 View (Portable) IMPRESSION: No evidence of active intrathoracic disease. Electronically Signed: Kadi Cohen MD at 4:41 EDT ,
--- NOTE | 2023-09-19 03:40 | EKG12_ITS ---
Test Reason : RHYTHM CHANGE Blood Pressure : / mmHG Vent. Rate : 040 BPM Atrial Rate : 040 BPM P-R Int : 138 ms QRS Dur : 086 ms QT Int : 438 ms P-R-T Axes : 058 017 034 degrees QTc Int : 356 ms Critical Test Result: Low HR Marked sinus bradycardia Abnormal ECG When compared with ECG of 19-SEP-2023 04:42, Sinus rhythm has replaced Atrial fibrillation Vent. rate has decreased BY 43 BPM QT has shortened Confirmed by JESIKA BOLDEN, DIANE ([id number]), newspaper or periodical editor CONNIE BECERRA ([id number]) on 09/21/2023 10:38:22 AM Referred By: Confirmed By:DIANE CANCHOLA MD
[2023-09-19 04:03] LABS: Absolute Lymphocyte Count 2.63 X10^3/uL (0.83-4.51); Absolute Neutrophil Count 5.3 X10^3/uL (2.0-7.7); Basophil# 0.11 X10^3/uL; Basophil% 1.2 % (0-1); Eosinophil# 0.19 X10^3/uL; Eosinophils% 2.1 % (0-5); Hematocrit 41.2 % (37-47); Hemoglobin 13.3 g/dL (12.0-15.0); Lymphocyte # 2.63 X10^3/ul (0.83-4.51); Lymphocyte % 29.7 % (19-41); Mean Corp Hgb Conc 32.3 g/dL (32-36); Mean Corpuscular Hgb 28.1 pg (27.0-32.0); Mean Corpuscular Volume 86.9 fL (81-99); Mean Platelet Vol. 11.7 fl (6.2-12.0); Monocyte% 6.8 % (0-10); NRBC Flagged by Analyzer 0 % (0-5); Neutrophil # 5.31 X10^3/uL (2.7-7.7); Platelet Count 286 K/mm3 (150-450); RBC Distribution Width CV 14.6 % (11.6-14.6); RBC Distribution Width SD 46.6 fl (35.1-43.9); Red Blood Count 4.74 M/mm3 (4.2-5.4); White Blood Count 8.9 K/mm3 (4.4-11.0)
[2023-09-19] MEDS: 0.9% Normal Saline (500mL Bag) 500 ML 999 ML IV (04:03)
[2023-09-19] MEDS: Metoprolol Tartrate 5 MG/5 ML Vial IV ×3 (04:04→04:18)
[2023-09-19] MEDS: Aspirin 81 MG TAB.CHEW 324 MG PO (04:04)
[2023-09-19 04:22] LABS: Anion Gap 5 (5-15); BUN 24 mg/dL (7-18); BUN/Creat Ratio 36.1 RATIO (10-20); Calcium,Total 9.8 mg/dL (8.5-10.1); Chloride 106 mmol/L (98-107); Creatinine, Serum 0.66 mg/dL (0.55-1.02); EST Glomerular Filtration Rate 94 mL/min (>60); Est Glom Filt Rate - Afr Amer 114 mL/min (>60); Estimated Creatinine Clearance 64.76 ml/min; Glucose 117 mg/dL (74-106); Magnesium 2.1 mg/dL (1.6-2.6); Potassium 3.9 mmol/L (3.5-5.1); Sodium Level 137 mmol/L (136-145); Troponin-I HS (w/2H Reflex) 4 pg/mL (3.0-54.0)
[2023-09-19] MEDS: dilTIAZem 25 MG/5 ML Vial 20 MG IV BOLUS (04:28)
--- NOTE | 2023-09-19 04:33 | EKG12_ITS ---
Test Reason : CP Blood Pressure : / mmHG Vent. Rate : 164 BPM Atrial Rate : 000 BPM P-R Int : 000 ms QRS Dur : 078 ms QT Int : 270 ms P-R-T Axes : 000 030 265 degrees QTc Int : 445 ms Critical Test Result: High HR Atrial fibrillation with rapid ventricular response Marked ST abnormality, possible inferior subendocardial injury Abnormal ECG Confirmed by DIANE CANCHOLA MD ([id number]), legal editor CONNIE BECERRA ([id number]) on 09/19/2023 9:51:13 AM Referred By: ZUHAIR Confirmed By:DIANE CANCHOLA MD
--- NOTE | 2023-09-19 04:42 | EKG12_ITS ---
Test Reason : REPEAT Blood Pressure : / mmHG Vent. Rate : 083 BPM Atrial Rate : 000 BPM P-R Int : 000 ms QRS Dur : 082 ms QT Int : 352 ms P-R-T Axes : 000 024 026 degrees QTc Int : 413 ms Atrial fibrillation Abnormal ECG Confirmed by JESIKA BOLDEN, DIANE ([id number]), news videotape editor TIKI PRITCHARD ([id number]) on 09/19/2023 2:33:09 PM Referred By: Confirmed By:DIANE CANCHOLA MD
--- NOTE | 2023-09-19 05:19 | HP.PCM.HOS_ITS ---
HPI - General General Date of Admission: 09/19/23 Date of Service: 09/19/23 Chief Complaint: Chest pain, palpitations. HPI Narrative The patient is a 68 y/o F w/ PMHx: Parkinson's disease, PAF, JEANA noncompliant with PAP therapy who presents to the [facility] ED on 09/19/23 with history of onset of chest discomfort coming on suddenly awakening her at 2:30 in the morning with palpitations not abating prompting eventual ED evaluation to be cautious with chest pain noted in the epigastric region with radiation to the right upper extremity described as stabbing-like in location with associated dyspnea and she notes an episode of loose stools. Patient does report that she has been noncompliant with her PAP therapy for several years unfortunately. She is compliant with her anticoagulant therapy as well as her beta-france therapy. Patient notes prior to arrival her chest discomfort was rated 10 out of 10 in severity, decreased down to 0 following rate improvement transiently into the 60s but has begun to increase again now that her rate has gone upward, currently rated 7 out of 10 in severity. Workup in the ED included T97, heart rate 169, BP 189/71, respiratory rate 21, 97% on room air with transiently decreased heart rate down to 66 with most recent repeat vital signs heart rate 131, BP 141/99, respiratory rate 22, 94% on room air, CBC with WBC 8.9, hemoglobin 13.3, platelet 286 without marked shift, BMP with BUN/creatinine 24/0.66, glucose 117, magnesium 2.1, troponin 4, chest x-ray with no acute cardiopulmonary finding, EKG in ED w/ atrial fibrillation w/ RVR with ST depressions with resolution on repeat once rate transiently improved. In the ED patient administered 1 L normal saline, aspirin 324 mg p.o. x 1, diltiazem 20 mg IV bolus x 1 and eventually transition to Cardizem drip after administration of 5 mg IV metoprolol x 3. [facility] Medical History Parkinson disease Paroxysmal atrial flutter Obstructive sleep apnea Paroxysmal atrial fibrillation Home Medications ?Medication ?Instructions ?Recorded ?Last Taken ?Type rasagiline 1 mg tablet 1 mg PO .COMPLEX 03/23/22 Unknown History apixaban 5 mg tablet 5 mg PO BID #180 tabs 10/07/22 Unknown Rx metoprolol tartrate 25 mg tablet 12.5 mg (1/2 x 25 mg) PO BID #90 05/25/23 Unknown Rx tabs carbidopa ER 23.75 mg-levodopa 95 1.5 cap PO 4X/DAY 07/08/23 Unknown History mg capsule,extended release (Rytary) Allergy/AdvReac Type Severity Reaction Status Date / Time Environmental Allergies: AdvReac respiratory Verified 09/19/23 03:38 Uncoded problems Family History Mother No problems noted. Father Hypertension Surgical History History of cardioversion (~03/10/22) History of tubal ligation Social History household members: spouse Smoking Status: Never smoker alcohol intake: never substance use type: does not use caffeine: Yes Type: carbonated beverages ROS ROS Narrative Admission Review of Systems: CONSTITUTIONAL: No weight loss, fever, chills, +weakness or fatigue. HEENT: Eyes: No visual loss, blurred vision, double vision or yellow sclerae. Ears, Nose, Throat: No hearing loss, sneezing, congestion, runny nose or sore throat. SKIN: No rash or itching, lesions, wounds. CARDIOVASCULAR: + Chest pain, palpitations. No edema, orthopnea, syncopal events. RESPIRATORY: + Dyspnea. No cough or sputum, wheezing, hemoptysis. GASTROINTESTINAL: + Episode of loose stool. No anorexia, nausea, vomiting , abdominal pain, melena, BRBPR. GENITOURINARY: No dysuria, frequency, urgency or retention. NEUROLOGICAL: + Underlying Parkinson disease with mild gait imbalance. No headache, dizziness, syncope, paralysis, ataxia, numbness or tingling in the extremities, focal weakness, change in bowel or bladder control, seizure. MUSCULOSKELETAL: + muscle, back pain, joint pain or stiffness. HEMATOLOGIC: No anemia. + Easy bleeding/bruising. LYMPHATICS: No enlarged nodes. No history of splenectomy. PSYCHIATRIC: No history of depression or anxiety. ENDOCRINOLOGIC: No reports of sweating, cold or heat intolerance. No polyuria or polydipsia. ALLERGIES: No history of asthma, hives, eczema or rhinitis. Vital Signs Vital Signs Vital Signs: 09/19/23 03:32 09/19/23 03:36 09/19/23 03:40 Temperature 97 F L Temperature Source Temporal Pulse Rate 169 H Respiratory Rate 21 H Respiratory Effort Normal Blood Pressure 189/71 H Blood Pressure Mean 110 Pulse Ox 97 Oxygen Delivery Method Room Air Room Air 09/19/23 04:31 09/19/23 05:00 Temperature Temperature Source Pulse Rate 66 131 H Respiratory Rate 15 22 H Respiratory Effort Blood Pressure 153/115 H 131/99 H Blood Pressure Mean 127 109 Pulse Ox 95 94 Oxygen Delivery Method Room Air Room Air Weight Weight: 155 lb 3.287 oz Body Mass Index (BMI) 25.0 Physical Exam Narrative Physical Examination: General: Awake, alert, oriented x 3 and cooperative, seated upright in the ED bed, notes chest pain had resolved completely when her rate improved but now back up again to 7 out of 10 in severity. Skin: Normal color, normal turgor, no icterus, no cyanosis. HEENT: AT/NC, EOMI, PERRLA, mildly dry MM, no carotid bruits or JVD noted. Lungs: Mildly diminished, greater bases, proper effort, no evidence of any distress, no rales, ronchi or wheezing. Heart: Irregular irregular; no gallop, rub audible. Abdomen: Soft, NTTP, ND, distant normal BS, no appreciated HSM. Extremities: No cyanosis, no clubbing, no marked peripheral edema noted. Neurological: Patient awake, alert, oriented as noted, cognitive function intact; pupils equally reactive to light and accommodation, cranial nerves grossly normal, moving all 4 extremities, no focal deficits, strength moderately to severely global decrease secondary to acute presentation complaints compounded by underlying Parkinson's disease. Psychiatric: Affect appears fatigued, no acute evidence of depressive or anxiety feelings. Results Lab / Micro Data 09/19/23 03:30 09/19/23 03:30 Labs: Laboratory Results - last 24 hr 09/19/23 03:30: WBC 8.9, RBC 4.74, Hgb 13.3, Hct 41.2, MCV 86.9, MCH 28.1, MCHC 32.3, RDW Std Deviation 46.6 H, RDW Coeff of Irasema 14.6, Plt Count 286, MPV 11.7, Immature Gran % (Auto) 0.200, Neut % (Auto) 60.0, Lymph % (Auto) 29.7, [place] % (Auto) 6.8, Eos % (Auto) 2.1, Baso % (Auto) 1.2 H, Absolute Neuts (auto) 5.3, Absolute Lymphs (auto) 2.63, Nucleated RBC % 0, Sodium 137, Potassium 3.9, Chloride 106, Carbon Dioxide 26.0, Anion Gap 5, BUN 24 H, Creatinine 0.66, Estim Creat Clear Calc 64.76, Est GFR (MDRD) Af Amer 114, Est GFR (MDRD) Non-Af 94, B UN/Creatinine Ratio 36.1 H, Glucose 117 H, Calcium 9.8, Magnesium 2.1, Troponin I High Sens 4 Imaging Radiology Impression Chest X-Ray 09/19/23 03:40 IMPRESSION: No evidence of active intrathoracic disease. Electronically Signed: Kadi Cohen MD at 4:41 EDT , Assessment & Plan Assessment/Plan (1) Atrial fibrillation with RVR: PLAN: Plan The patient is a 68 y/o F w/ PMHx: Parkinson's disease, PAF, JEANA noncompliant with PAP therapy who presents to the [facility] ED on 09/19/23 with history of onset of chest discomfort coming on suddenly awakening her at 2:30 in the morning with palpitations not abating prompting eventual ED evaluation to be cautious with chest pain noted in the epigastric region with radiation to the right upper extremity described as stabbing-like in location with associated dyspnea. #1. Paroxsymal atrial fibrillation w/ RVR: EKG in ED w/ atrial fibrillation w/ RVR with ST depressions with resolution on repeat once rate transiently improved. Patient administered series of metoprolol IV eventually followed by Cardizem bolus and drip in ED. Will admit to PCU, maintain on telemetry, obtain cardiac enzyme serial set, obtain ECHO, obtain TSH level. Magnesium level normal obtained in the ED 2.1. Most recent echocardiogram noted 11/10/2017 with LV systolic function normal, EF 60%, stage I diastolic dysfunction, mild TVI thus will request repeat at this time. Will continue Cardizem drip with planned continuation also concurrent underlying metoprolol regimen. If patient does not convert spontaneously eventually with these interventions may need to consider cardioversion. Will continue Cardiology consultation initiated ED. #2. Parkinson's disease: We will continue patient home rytary and rasagiline regimen, complicates presentation, if necessary may add PT/OT consultations for discharge planning. #3. JEANA: Unfortunately patient has been noncompliant with PAP therapy, amenable to reinitiating here and discussed at length benefit of using CPAP nightly especially given her acute presentation. #4. DVT prophylaxis: Will continue patient on apixaban regimen. #5. CODE status: Patient HCPOA is her who is present and living will is in place. Discussed CODE status at length including difference between FULL code, DNR-CCA and DNR-CC status. Following discussions about the differences in these status, requested Full Code status. Advanced Care Planning Face to Face Time: 16 minutes. Charges/Coding Visit Charges Inpatient E&M: 59188 Init Hosp L3 Procedures Hospitalists Procedures: 48660 Advncd Care Plan 30 Min
[2023-09-19] MEDS: Diltiazem 125 MG in Dextrose 5%-Water (100mL Bag) 100 ML IV (05:31)
[2023-09-19 05:59] LABS: Reflex Troponin-HS? (from REC) Y
--- NOTE | 2023-09-19 06:05 | ECHOD_ITS ---
Reason For Study: ATRIAL FIB-FLUTTER Procedure This was a 2D Doppler, Color Flow transthoracic echocardiogram. Exam performed portable in patient room. Left Ventricle Normal LV size. Mild concentric left ventricular hypertrophy. Left ventricular systolic function is normal. The left ventricular ejection fraction is 65 %. No regional wall motion abnormalities noted. Right Ventricle Normal RV size. Normal systolic function. Atria Normal left atrium. Normal right atrium. Mitral Valve Normal mitral valve. Tricuspid Valve Normal tricuspid valve. Mild tricuspid valve insufficiency. Pulmonary artery systolic pressure is 25 mmHg. Aortic Valve Trisinus/trileaflet aortic valve. Mild (1+) aortic valve insufficiency. Pulmonic Valve Normal pulmonic valve. Great Vessels Normal aortic root. The pulmonary artery is normal size. Normal inferior vena cava. Pericardium/Pleural No pericardial effusion. MMode/2D Measurements & Calculations LVIDd: 3.4 cm IVSd: 1.3 cm Ao root diam: 2.8 cm LVIDs: 2.3 cm LVPWd: 1.2 cm RVDd: 3.0 cm FS: 32.4 % LAV(MOD-bp): 41.1 ml LVAd ap4: 18.8 cm2 SV(MOD-sp4): 27.0 ml LAV(MOD-bp) Indexed: 23.2 ml/m2 LVLd ap4: 6.7 cm LAV(MOD-sp2): 38.6 ml EDV(MOD-sp4): 43.8 ml LAV(MOD-sp4): 42.7 ml EDV(sp4-el): 44.5 ml LVAs ap4: 10.1 cm2 LVLs ap4: 5.6 cm ESV(MOD-sp4): 16.8 ml ESV(sp4-el): 15.4 ml EF(MOD-sp4): 61.7 % EF(sp4-el): 65.5 % SV(sp4-el): 29.2 ml LA A4 area: 17.0 cm2 LA dimension(2D): 3.5 cm RA A4 area: 13.3 cm2 Doppler Measurements & Calculations MV E max katheryn: 86.8 cm/sec Ao V2 max: 166.5 cm/sec AI max katheryn: 351.0 cm/sec Ao max P.1 mmHg AI max P.3 mmHg AI dec slope: 167.3 cm/sec2 AI P1/2t: 614.4 msec LV V1 max: 106.2 cm/sec PA V2 max: 88.6 cm/sec TR max katheryn: 235.7 cm/sec LV V1 max P.5 mmHg TR max P.2 mmHg ECHO/Echo Complete Interpretation Summary Normal LV size. The left ventricular ejection fraction is 65 %. Left ventricular systolic function is normal. Mild (1+) aortic valve insufficiency. Structurally normal valves. Ordering Physician: Danyell Rose Referring Physician: HARMAN ORELLANA Performed By: Tere Vanessa RDCS
[2023-09-19] MEDS: Diltiazem 125 MG in Dextrose 5%-Water (100mL Bag) 100 ML 10 MG IV (06:22)
[2023-09-19] MEDS: 0.9% Normal Saline (1000mL) 1,000 ML 100 ML IV (06:42)
[2023-09-19 07:11] LABS: Troponin-I HS 9 pg/mL (3.0-54.0)
--- NOTE | 2023-09-19 07:25 | PCM.CONS.C ---
Assessment & Plan Assessment/Plan (1) Atrial fibrillation with RVR: PLAN: She does present with atrial fibrillation with a rapid ventricular response rate. The exact etiology is not clear at this particular time. Will obtain an echocardiogram to assess ventricular function Increase metoprolol to 50 mg twice a day and wean off intravenous diltiazem Continue Eliquis Will consider outpatient stress testing and DC cardioversion and starting flecainide if the stress testing is normal. Thank you for allowing me to participate in the care of your patient. Please don't hesitate to call if any issues arise. HPI Consult Data Date of Consult: 09/19/23 HPI Narrative HPI Narrative: JOSE CHEN, is a 68 F who presents to the emergency room after being awoken in her dream with palpitations. She does have a history of Parkinson's and she says she presented to the emergency room it was noted to be in atrial fibrillation with a rapid ventricular response rate. She is a lady with a history of paroxysmal atrial fibrillation as well as Parkinson's disease. She had presented earlier in March of this year with atrial fibrillation with a rapid ventricular response rate she had been on her Eliquis and she underwent DC cardioversion and discharged. She has been compliant with her medications and she is not sure why she went into atrial fibrillation again this time. She denies any dizziness or diaphoresis near syncope or syncope. Her last echocardiogram 6 years ago demonstrated preserved left ventricular ejection fraction. She was started on intravenous diltiazem was given some intravenous metoprolol and then transferred to the telemetry care unit where I saw her. She is stable at this time. [facility] Medical History Parkinson disease Paroxysmal atrial flutter Obstructive sleep apnea Paroxysmal atrial fibrillation Home Medications ?Medication ?Instructions ?Recorded ?Last Taken ?Type rasagiline 1 mg tablet 1 mg PO .COMPLEX 03/23/22 Unknown History apixaban 5 mg tablet 5 mg PO BID #180 tabs 10/07/22 Unknown Rx metoprolol tartrate 25 mg tablet 12.5 mg (1/2 x 25 mg) PO BID #90 05/25/23 Unknown Rx tabs carbidopa ER 23.75 mg-levodopa 95 1.5 cap PO 4X/DAY parkinson's 07/08/23 Unknown History mg capsule,extended release (Rytary) carbidopa 25 mg-levodopa 100 mg 1.5 tab PO .COMPLEX parkinson's 09/19/23 Unknown History tablet Allergy/AdvReac Type Severity Reaction Status Date / Time Environmental Allergies: AdvReac respiratory Verified 09/19/23 03:38 Uncoded problems Family History Mother No problems noted. Father Hypertension Surgical History History of cardioversion (~03/10/22) History of tubal ligation Social History household members: spouse Smoking Status: Never smoker alcohol intake: never substance use type: does not use caffeine: Yes Type: carbonated beverages ROS Constitutional Constitutional: Denies fever(s) or weight loss Eyes Eyes: Reports systems reviewed and no addt'l complaints, except as documented ENT HEENT: Reports systems reviewed and no addt'l complaints, except as documented Cardiovascular Cardiovascular: Reports palpitations; Denies chest pain at rest, chest pain with activity, dyspnea at rest, dyspnea on exertion, edema or paroxysmal nocturnal dyspnea Respiratory/Chest Respiratory/Chest: Reports shortness of breath at rest and shortness of breath with exertion; Denies dyspnea on exertion or productive cough Gastrointestinal Gastrointestinal: Denies change in bowel habits, nausea, vomiting or weight changes Genitourinary Genitourinary: Denies difficulty urinating Musculoskeletal Musculoskeletal: Denies joint stiffness or muscle weakness Integumentary Integumentary: Denies lesions Neurologic Neurologic: Denies dizziness or syncope Psychiatric Psychiatric: Denies anxiety Endocrine Endocrinology: Denies excessive sweating or fatigue Hematologic/Lymphatic Hematologic/Lymphatic: Denies anemia Allergic/Immunologic Allergic/Immunologic: Denies seasonal rhinorrhea Physical Exam Const alert, oriented x3 and no apparent distress General Appearance: cooperative HEENT hearing grossly normal bilaterally Head and Scalp: atraumatic Eyes EOMs intact bilaterally Neck General: normal visual inspection Chest inspection of chest normal and palpation of chest normal Resp normal respiratory effort Auscultation: clear to auscultation bilaterally Cardio S1 normal heart sound and S2 normal heart sound Jugular Venous Distention: JVD Rhythm: abnormal rhythm irregularly irregular GI normal to inspection, nondistended, normoactive bowel sounds Extremity normal capillary refill and no pedal edema Peripheral Pulses: Yes pulses 2+ throughout and femoral pulses present Skin no rashes or lesions noted Neuro oriented x3 and CN's II-XII intact bilaterally Psych Appearance: grossly normal and appropriate Risk Stratification Risk Stratification Applicable: No Objective Data Vital Signs: Vital Signs Temp Pulse Resp BP Pulse Ox O2 Del Method 97 F L 118 H 18 135/78 H 96 Room Air 09/19/23 05:28 09/19/23 07:00 09/19/23 07:00 09/19/23 07:00 09/19/23 07:00 09/19/23 06:30 Oxygen Delivery Method Room Air Weight: 151 lb 3.794 oz Body Mass Index (BMI) 24.4 Intake & Output: Intake and Output for Last 24 Hours 09/17/23 09/18/23 09/19/23 23:59 23:59 23:59 Intake Total 512.83 / 512.83 Balance 512.83 / 512.83 Lab / Micro Data 09/19/23 03:30 09/19/23 03:30 Labs: Laboratory Results - last 24 hr 09/19/23 03:30: WBC 8.9, RBC 4.74, Hgb 13.3, Hct 41.2, MCV 86.9, MCH 28.1, MCHC 32.3, RDW Std Deviation 46.6 H, RDW Coeff of Irasema 14.6, Plt Count 286, MPV 11.7, Immature Gran % (Auto) 0.200, Neut % (Auto) 60.0, Lymph % (Auto) 29.7, [place] % (Auto) 6.8, Eos % (Auto) 2.1, Baso % (Auto) 1.2 H, Absolute Neuts (auto) 5.3, Absolute Lymphs (auto) 2.63, Nucleated RBC % 0, Sodium 137, Potassium 3.9, Chloride 106, Carbon Dioxide 26.0, Anion Gap 5, BUN 24 H, Creatinine 0.66, Estim Creat Clear Calc 64.76, Est GFR (MDRD) Af Amer 114, Est GFR (MDRD) Non-Af 94, BUN/Creatinine Ratio 36.1 H, Glucose 117 H, Calcium 9.8, Magnesium 2.1, Troponin I High Sens 4 09/19/23 06:39: Troponin I High Sens 9 Cardiology Labs/Tests 09/19/23 03:30: WBC 8.9, RBC 4.74, Hgb 13.3, Hct 41.2, MCV 86.9, MCH 28.1, MCHC 32.3, Plt Count 286, MPV 11.7, Immature Gran % (Auto) 0.200, Neut % (Auto) 60.0, Lymph % (Auto) 29.7, [place] % (Auto) 6.8, Eos % (Auto) 2.1, Baso % (Auto) 1.2 H, Absolute Neuts (auto) 5.3, Nucleated RBC % 0, Sodium 137, Potassium 3.9, Chloride 106, Carbon Dioxide 26.0, Anion Gap 5, BUN 24 H, Creatinine 0.66, Est GFR (MDRD) Af Amer 114, Est GFR (MDRD) Non-Af 94, BUN/Creatinine Ratio 36.1 H, Glucose 117 H, Calcium 9.8, Magnesium 2.1 Rhythm: EKG: ECHO: Stress Test: Cardiac Cath: PCI: CT Surgery: Holter monitor: EPS: PPM: CXR: Chest CT Scan: Radiography Diagnostic Testing: Radiology Impression Chest X-Ray 09/19/23 03:40 IMPRESSION: No evidence of active intrathoracic disease. Electronically Signed: Kadi Cohen MD at 4:41 EDT ,
[2023-09-19] MEDS: Carbidopa/Levodopa 25/100 Tablet PO ×4 (08:40→20:56)
[2023-09-19] MEDS: APIXABAN 5 MG TABLET PO ×2 (09:40→20:56)
[2023-09-19] MEDS: Metoprolol Tartrate 50 MG Tablet PO (09:40)
[2023-09-19] MEDS: 0.9% Saline Lock 10 ML Syringe IV ×2 (09:41→20:59)
[2023-09-19 10:34] LABS: Troponin-I HS 14 pg/mL (3.0-54.0)
--- NOTE | 2023-09-19 11:00 | CASEMGMT ---
RN CM Face to Face with patient for initial transition planning/care coordination assessment. RN CM introduced self and role at [facility]. Patient lying in bed, alert and oriented. Patient willing to participate in assessment and is able to answer all questions appropriately. Care providers, pharmacy, and demographics verified. Strata: 1 PCP: Stephie Specialists: Luis, core man; Dino Melgar Preferred Pharmacy: [facility] Insurance: [facility], [facility] Prescription Benefit: yes Living Will/HPOA: yes, Enrrique Ortega LNOK: Living Arrangements: Patient lives with in a single story home with 1 step to enter. Patient is independent at home. Transportation: self, DME/HHC: Patient has raised toilet, walker at home. No previous HHC or SNF. No previous HHC or SNF Patient wishes to discharge home, denies need for home health at this time. Patient states he has no further needs or concerns at this time. CM to follow for discharge planning needs that may arise. Disposition Plan: Patient to discharge home with family support and follow-up plan in place. Mary ROWLEY, RN, CM
--- NOTE | 2023-09-19 15:08 | NURSING ---
09/19/23@1342- pt had unwitnessed syncopal episode with 12 sec pause or post conversion event. VSS. pt converted to sinus delroy, HR high 30's to low 40's. RT called to perform EKG. see provider notification.
[2023-09-20] VITALS (7 sets, daily range): BP systolic 88–149; BP diastolic 46–75; PULSE 61–80; RESP 16–19; TEMP 36.3–36.6; O2SAT 94–97; BMI 24.5
[2023-09-20 06:23] LABS: Absolute Lymphocyte Count 1.72 X10^3/uL (0.83-4.51); Absolute Neutrophil Count 5.5 X10^3/uL (2.0-7.7); Basophil# 0.06 X10^3/uL; Basophil% 0.8 % (0-1); Eosinophil# 0.08 X10^3/uL; Hematocrit 42.1 % (37-47); Hemoglobin 14.1 g/dL (12.0-15.0); Lymphocyte # 1.72 X10^3/ul (0.83-4.51); Lymphocyte % 21.9 % (19-41); Mean Corp Hgb Conc 33.5 g/dL (32-36); Mean Corpuscular Hgb 29.1 pg (27.0-32.0); Mean Corpuscular Volume 86.8 fL (81-99); Mean Platelet Vol. 11.6 fl (6.2-12.0); Monocyte# 0.46 X10^3/uL; Monocyte% 5.8 % (0-10); NRBC Flagged by Analyzer 0 % (0-5); Neutrophil # 5.53 X10^3/uL (2.7-7.7); Neutrophil % 70.2 % (47-70); Platelet Count 248 K/mm3 (150-450); RBC Distribution Width CV 14.7 % (11.6-14.6); RBC Distribution Width SD 47.1 fl (35.1-43.9); Red Blood Count 4.85 M/mm3 (4.2-5.4); White Blood Count 7.9 K/mm3 (4.4-11.0)
[2023-09-20] MEDS: Carbidopa/Levodopa 25/100 Tablet PO ×2 (07:00→12:11)
[2023-09-20 07:02] LABS: ALB/GLOB Ratio 0.9 RATIO (0.9-2.4); AST(SGOT) 11 U/L (15-37); Alanine Aminotransfer ALT/SGPT 10 U/L (13-56); Albumin, Serum 3.5 g/dL (3.2-5.0); Alkaline Phosphatase 79 U/L (45-117); Anion Gap 6 (5-15); BUN 16 mg/dL (7-18); BUN/Creat Ratio 24.9 RATIO (10-20); Calcium,Total 8.9 mg/dL (8.5-10.1); Chloride 109 mmol/L (98-107); Creatinine, Serum 0.64 mg/dL (0.55-1.02); EST Glomerular Filtration Rate 98 mL/min (>60); Est Glom Filt Rate - Afr Amer 119 mL/min (>60); Estimated Creatinine Clearance 64.76 ml/min; Glucose 109 mg/dL (74-106); Protein, Total 7.5 g/dL (6.4-8.2); Sodium Level 139 mmol/L (136-145); Thyroid Stim Hormone (TSH) 1.37 uIU/mL (0.358-3.74)
--- NOTE | 2023-09-20 07:41 | PN.CARD_ITS ---
Subjective Subjective Patient seen and evaluated. Doing well maintaining sinus rhythm Objective Data Vital Signs: Vital Signs Temp Pulse Resp BP Pulse Ox O2 Del Method 97.7 F L 70 16 149/72 H 97 Room Air 09/20/23 03:01 09/20/23 03:01 09/20/23 03:01 09/20/23 03:01 09/20/23 03:01 09/20/23 03:05 Oxygen Delivery Method Room Air Weight: 152 lb 1.903 oz Body Mass Index (BMI) 24.5 Intake & Output: Intake and Output for Last 24 Hours 09/18/23 09/19/23 09/20/23 23:59 23:59 23:59 Intake Total 2300.33 / 2300.33 Output Total 1300 / 1300 575 / 575 Balance 1000.33 / 1000.33 -575 / -575 Lab / Micro Data 09/20/23 05:55 09/20/23 05:55 Labs: Laboratory Results - last 24 hr 09/19/23 09:45: Troponin I High Sens 14 09/20/23 05:55: WBC 7.9, RBC 4.85, Hgb 14.1, Hct 42.1, MCV 86.8, MCH 29.1, MCHC 33.5, RDW Std Deviation 47.1 H, RDW Coeff of Irasema 14.7 H, Plt Count 248, MPV 11.6, Immature Gran % (Auto) 0.300, Neut % (Auto) 70.2 H, Lymph % (Auto) 21.9, [place] % (Auto) 5.8, Eos % (Auto) 1.0, Baso % (Auto) 0.8, Absolute Neuts (auto) 5.5, Absolute Lymphs (auto) 1.72, Nucleated RBC % 0, Sodium 139, Potassium 4.0, Chloride 109 H, Carbon Dioxide 24.0, Anion Gap 6, BUN 16, Creatinine 0.64, Estim Creat Clear Calc 64.76, Est GFR (MDRD) Af Amer 119, Est GFR (MDRD) Non-Af 98, B UN/Creatinine Ratio 24.9 H, Glucose 109 H, Calcium 8.9, Total Bilirubin 0.60, A ST 11 L, ALT 10 L, Alkaline Phosphatase 79, Total Protein 7.5, Albumin 3.5, Globulin 4.0, Albumin/Globulin Ratio 0.9, TSH 1.37 Cardiology Labs/Tests 09/20/23 05:55: WBC 7.9, RBC 4.85, Hgb 14.1, Hct 42.1, MCV 86.8, MCH 29.1, MCHC 33.5, Plt Count 248, MPV 11.6, Immature Gran % (Auto) 0.300, Neut % (Auto) 70.2 H, Lymph % (Auto) 21.9, [place] % (Auto) 5.8, Eos % (Auto) 1.0, Baso % (Auto) 0.8, Absolute Neuts (auto) 5.5, Nucleated RBC % 0, Sodium 139, Potassium 4.0, C hloride 109 H, Carbon Dioxide 24.0, Anion Gap 6, BUN 16, Creatinine 0.64, Est GFR (MDRD) Af Amer 119, Est GFR (MDRD) Non-Af 98, BUN/Creatinine Ratio 24.9 H, G lucose 109 H, Calcium 8.9, Total Bilirubin 0.60 Rhythm: EKG: ECHO: Stress Test: Cardiac Cath: PCI: CT Surgery: Holter monitor: EPS: PPM: CXR: Chest CT Scan: Radiography Diagnostic Testing: Radiology Impression Echocardiogram 09/19/23 06:05 Interpretation Summary Normal LV size. The left ventricular ejection fraction is 65 %. Left ventricular systolic function is normal. Mild (1+) aortic valve insufficiency. Structurally normal valves. Ordering Physician: Danyell Rose Referring Physician: HARMAN ORELLANA Performed By: Tere Vanessa RDCS Physical Exam Const alert, oriented x3 and no apparent distress General Appearance: cooperative HEENT hearing grossly normal bilaterally Head and Scalp: atraumatic Eyes EOMs intact bilaterally Neck General: normal visual inspection Chest inspection of chest normal and palpation of chest normal Resp normal respiratory effort Auscultation: clear to auscultation bilaterally Cardio regular rate, regular rhythm, S1 normal heart sound and S2 normal heart sound Jugular Venous Distention: JVD GI normal to inspection, nondistended, normoactive bowel sounds Extremity normal capillary refill and no pedal edema Peripheral Pulses: Yes pulses 2+ throughout and femoral pulses present Skin no rashes or lesions noted Neuro oriented x3 and CN's II-XII intact bilaterally Psych Appearance: grossly normal and appropriate Assessment & Plan Assessment/Plan (1) Atrial fibrillation with RVR: PLAN: She does present with atrial fibrillation with a rapid ventricular response rate. The exact etiology is not clear at this particular time. * Echocardiogram demonstrated preserved left ventricular systolic function. * Increase metoprolol to 50 mg twice a day * Continue Eliquis * Will start flecainide 50 mg twice a day and schedule outpatient stress testing. * Can be discharged today for outpatient follow-up. * Thank you for allowing me to participate in the care of your patient. Please don't hesitate to call if any issues arise.
--- NOTE | 2023-09-20 09:07 | DCINST_ITS ---
Discharge Instructions Diet Discharge Diet: No restrictions Activity Discharge Activity: Return to Normal Activity Dressing / Incision Call your doctor if you observe: Fever of 101 or Higher, Shortness of breath, Dizziness, Fainting spells, Swelling in the ankles, Chest pain and Increased palpitations (irregular heartbeat) Follow Up Care Test Results: Test results from this visit will be discussed in further detail at your follow- up appointment, if applicable. Discharge Plan Admission Admit Date/Time: 09/19/23 05:21 Attending Provider: Raphael Mott Primary Care Provider: Roge Card Consulting Providers: Perfecto Reynolds; Danyell Rose Discharge Orders/Prescriptions Prescriptions: New flecainide 100 mg Tablet 50 mg PO BID 30 Days Qty: 30 0RF metoprolol tartrate 25 mg Tablet 25 mg PO BID 30 Days Qty: 60 0RF Continued rasagiline 1 mg tablet 1 mg PO .COMPLEX Rx Instructions: 1 mg orally daily at 10:30 am; carbidopa-levodopa 25-100 mg tablet 1.5 tab PO .COMPLEX Rx Instructions: 1.5 tabs orally 4 times daily; 7:30am, 12 pm, 430 pm, and 9 pm apixaban 5 mg tablet 5 mg PO BID Qty: 180 3RF Discontinued Rytary 23.75-95 mg capsule, extended release 1.5 cap PO 4X/DAY Rx Instructions: takes med at 0630 1100 1530 2000 metoprolol tartrate 25 mg tablet 12.5 mg PO BID Qty: 90 3RF Referrals / Follow Up: Roge Card MD [Primary Care Provider] - Within 1 Week Kenya Hernandez PA [Med Staff - Adv Practice Prof] - Within 1 Month Disposition Disposition (needs filled in before D/C Order can be placed): Home, Self Care
[2023-09-20] MEDS: APIXABAN 5 MG TABLET PO (09:13)
[2023-09-20] MEDS: 0.9% Saline Lock 10 ML Syringe IV (09:13)
[2023-09-20] MEDS: Flecainide 100 MG Tablet 50 MG PO (09:46)
--- NOTE | 2023-09-20 10:00 | EKG12_ITS ---
Test Reason : F/U Blood Pressure : / mmHG Vent. Rate : 066 BPM Atrial Rate : 066 BPM P-R Int : 152 ms QRS Dur : 086 ms QT Int : 396 ms P-R-T Axes : 063 -07 022 degrees QTc Int : 415 ms Normal sinus rhythm Inferior infarct , age undetermined Abnormal ECG When compared with ECG of 19-SEP-2023 13:48, MANUAL COMPARISON REQUIRED, DATA IS UNCONFIRMED Confirmed by JESIKA BOLDEN, DIANE ([id number]), electronic news gathering editor CONNIE BECERRA ([id number]) on 09/21/2023 10:37:04 AM Referred By: Confirmed By:DIANE CANCHOLA MD
[2023-09-20] MEDS: Metoprolol Tartrate 25 MG Tablet PO (10:16)
--- NOTE | 2023-09-20 12:32 | PHA.DC.MC.R ---
Pharmacy [facility] Pharm[facility] Service has performed discharge medication reconciliation and counseling for this patient. Medications sent to [facility], but patient would like them filled here and delivered to her room. This [facility] called Retail, spoke to Jena and requested transfers and delivery. 1. FLECAINIDE 50MG PO BID The patient's discharge medication list was reviewed for discrepancies and discrepancies were resolved. The patient was counseled on the following discharge medications and changes in medications for homegoing were reviewed. The Reason for Use, instructions for use, and potential side effects were reviewed for all new medications. The patient's questions regarding all of their medications were answered. The patient was able to verbally demonstrate an understanding of their discharge medications. Medications at Discharge Home Medications rasagiline 1 mg tablet 1 mg PO .COMPLEX parkinsons 03/23/22 apixaban 5 mg tablet 5 mg PO BID blood thinner #180 tabs 10/07/22 carbidopa 25 mg-levodopa 100 mg tablet 1.5 tab PO .COMPLEX parkinson's 09/19/23 flecainide 100 mg tablet 50 mg (1/2 x 100 mg) PO BID 30 days #30 tabs 09/20/23 metoprolol tartrate 25 mg tablet 25 mg PO BID 30 days #60 tabs 09/20/23
--- NOTE | 2023-09-20 13:06 | CASEMGMT ---
Social Work SW spoke w/pt, asked her to bring in LW/POA as able. Pt did confirm her is healthcare POA, Enrrique Torreson. DAFNE Valencia
--- NOTE | 2023-09-20 14:35 | DS.PCM_ITS ---
Providers Date of Admission: 09/19/23 Primary Care Physician: Dr. Roge Card MD Consultations 09/19/23 06:05 Consult: Cardiology Routine Consulting Provider: Perfecto Reynolds Reason for Consult: PAF RVR EMERGENT Consult: No MD Notified: Yes Date Notified: 09/19/23 Time Notified: 05:25 Method of Notification: ED Physician Initiated Reason For Visit: PAF RVR Diagnosis Discharge Diagnosis (1) Atrial fibrillation with RVR: Status: Acute Code(s): I48.91 - Unspecified atrial fibrillation Medications at Discharge Home Medications rasagiline 1 mg tablet 1 mg PO .COMPLEX parkinsons 03/23/22 apixaban 5 mg tablet 5 mg PO BID blood thinner #180 tabs 10/07/22 carbidopa 25 mg-levodopa 100 mg tablet 1.5 tab PO .COMPLEX parkinson's 09/19/23 flecainide 100 mg tablet 50 mg (1/2 x 100 mg) PO BID 30 days #30 tabs 09/20/23 metoprolol tartrate 25 mg tablet 25 mg PO BID 30 days #60 tabs 09/20/23 Hospital Course Operations None Procedures 2-D Echocardiogram Summary of Care Provided Minutes Spent on Discharge: 39 Hospital Course: Per HPI: The patient is a 68 y/o F w/ PMHx: Parkinson's disease, PAF, JEANA noncompliant with PAP therapy who presents to the [facility] ED on 09/19/23 with history of onset of chest discomfort coming on suddenly awakening her at 2:30 in the morning with palpitations not abating prompting eventual ED evaluation to be cautious with chest pain noted in the epigastric region with radiation to the right upper extremity described as stabbing-like in location with associated dyspnea and she notes an episode of loose stools. Patient does report that she has been noncompliant with her PAP therapy for several years unfortunately. She is compliant with her anticoagulant therapy as well as her beta-france therapy. Patient notes prior to arrival her chest discomfort was rated 10 out of 10 in severity, decreased down to 0 following rate improvement transiently into the 60s but has begun to increase again now that her rate has gone upward, currently rated 7 out of 10 in severity. Workup in the ED included T97, heart rate 169, BP 189/71, respiratory rate 21, 97% on room air with transiently decreased heart rate down to 66 with most recent repeat vital signs heart rate 131, BP 141/99, respiratory rate 22, 94% on room air, CBC with WBC 8.9, hemoglobin 13.3, platelet 286 without marked shift, BMP with BUN/creatinine 24/0.66, glucose 117, magnesium 2.1, troponin 4, chest x-ray with no acute cardiopulmonary finding, EKG in ED w/ atrial fibrillation w/ RVR with ST depressions with resolution on repeat once rate transiently improved. In the ED patient administered 1 L normal saline, aspirin 324 mg p.o. x 1, diltiazem 20 mg IV bolus x 1 and eventually transition to Cardizem drip after administration of 5 mg IV metoprolol x 3. Hospital Course: 1. Paroxysmal A-fib with RVR?68-year-old female with a history of Parkinson's presented to the hospital in A-fib with RVR. She was having some mild chest pain associated with the tachycardia however troponins were unremarkable. She was started on a Cardizem drip and had a spontaneous conversion yesterday afternoon to normal sinus rhythm. Cardiology was consulted and recommended starting flecainide 50 mg p.o. twice daily and increasing her metoprolol from 12-02/08 to 25 mg p.o. twice daily. Initially she was increased to 50 twice daily however was having transient episodes of bradycardia and hypotension though this was likely also due to the Sinemet she takes for Parkinson's. She tolerates 25 mg of metoprolol p.o. twice daily as well as the flecainide. Echo on this admission demonstrates an EF 65% with mild aortic valve insufficiency and no diastolic dysfunction with a PASP of 25 mmHg, with no signs of ischemia or wall motion abnormality. We will continue with [place] on discharge as well. I discussed with her the plan for discharge today she expressed understanding of the risk and benefits of going home and would like to go home today. Physical Exam Narrative General: Alert, Oriented x3, Cooperative, No apparent distress HEENT: Atraumatic, PERRLA, EOMI, Normocephalic Oral: Moist Mucosa Neck: Supple, No JVD Lungs: Diminished, Normal air movement, No rhonchi, No wheeze, No rales Cardiovascular: Regular rate, Regular Rhythm, Normal S1, Normal S2, No murmurs Abdomen: Soft, Non Tender, Non-Distended, No Hepato-splenomegaly Extremities: No edema, Capillary Refill Less than 3 Seconds Skin: No rashes, No breakdown Musculoskeletal: No Tenderness to Palpation of Joints or Extremities Neurological: No focal neurological deficits, little bit of a shuffling gait, masked facies, no tremors states she is at her Parkinson baseline Psych/Mental Status: Normal Affect, Appropriate Weight / BMI Weight Weight: 152 lb 1.903 oz Body Mass Index (BMI) 24.5 ABG / Lab / Microbiology Data 09/20/23 05:55 09/20/23 05:55 Laboratory: Laboratory Results - last 24 hr 09/20/23 05:55: WBC 7.9, RBC 4.85, Hgb 14.1, Hct 42.1, MCV 86.8, MCH 29.1, MCHC 33.5, RDW Std Deviation 47.1 H, RDW Coeff of Irasema 14.7 H, Plt Count 248, MPV 11.6, Immature Gran % (Auto) 0.300, Neut % (Auto) 70.2 H, Lymph % (Auto) 21.9, Navarro % (Auto) 5.8, Eos % (Auto) 1.0, Baso % (Auto) 0.8, Absolute Neuts (auto) 5.5, Absolute Lymphs (auto) 1.72, Nucleated RBC % 0, Sodium 139, Potassium 4.0, Chloride 109 H, Carbon Dioxide 24.0, Anion Gap 6, BUN 16, Creatinine 0.64, Estim Creat Clear Calc 64.76, Est GFR (MDRD) Af Amer 119, Est GFR (MDRD) Non-Af 98, B UN/Creatinine Ratio 24.9 H, Glucose 109 H, Calcium 8.9, Total Bilirubin 0.60, A ST 11 L, ALT 10 L, Alkaline Phosphatase 79, Total Protein 7.5, Albumin 3.5, Globulin 4.0, Albumin/Globulin Ratio 0.9, TSH 1.37 D/C Instructions Discharge Diet: No restrictions Call your doctor if you observe: Fever of 101 or Higher, Shortness of breath, Dizziness, Fainting spells, Swelling in the ankles, Chest pain and Increased palpitations (irregular heartbeat) Meaningful Use Info Meaningful Use Meaningful Use Diagnoses (Choose all that apply): None applicable Ischemic Stroke Statin Dosing Therapy Reference: STATIN DOSE THERAPY REFERENCE: * Patients > 75 years receive moderate or high dose statin therapy. * Patients 75 years or YOUNGER should receive HIGH intensity statin dose unless contraindicated. You will be required to document reason for non-treatment if statin daily dose does not meet guidelines. HIGH DOSE STATIN THERAPY DAILY Atorvastatin > than or = to 40 mg Rosuvastatin > than or = to 20 mg Amlodipine + Atorvastatin > than or = to 2.5/40 mg Ezetimibe + Simvastatin 10/80 mg Simvastatin 80mg Discharge Plan Admission Admit Date/Time: 09/19/23 05:21 Attending Provider: Raphael Mott Primary Care Provider: Roge Card Consulting Providers: Perfecto Reynolds; Danyell Rose Discharge Orders/Prescriptions Prescriptions: New flecainide 100 mg Tablet 50 mg PO BID 30 Days Qty: 30 0RF metoprolol tartrate 25 mg Tablet 25 mg PO BID 30 Days Qty: 60 0RF Continued rasagiline 1 mg tablet 1 mg PO .COMPLEX Rx Instructions: 1 mg orally daily at 10:30 am; carbidopa-levodopa 25-100 mg tablet 1.5 tab PO .COMPLEX Rx Instructions: 1.5 tabs orally 4 times daily; 7:30am, 12 pm, 430 pm, and 9 pm apixaban 5 mg tablet 5 mg PO BID Qty: 180 3RF Discontinued Rytary 23.75-95 mg capsule, extended release 1.5 cap PO 4X/DAY Rx Instructions: takes med at 0630 1100 1530 2000 metoprolol tartrate 25 mg tablet 12.5 mg PO BID Qty: 90 3RF Referrals / Follow Up: Roge Card MD [Primary Care Provider] - Within 1 Week Kenya Hernandez PA [Med Staff - [facility] Practice Prof] - Within 1 Month Disposition Disposition (needs filled in before D/C Order can be placed): Home, Self Care Charges/Coding Visit Charges Inpatient E&M: 63824 Disch Hosp >30min
--- NOTE | 2023-09-20 14:40 | CHAPLAIN ---
Type of Pastoral Visit _x__ Initial Visit ___ Follow-up Visit ___ On-call Visit ___ General Patient Visit ___ Spiritual Assessment ___ Family Conference ___ Bereavement ___ Rapid Response ___ Code Blue ___ Other (describe below) Pastoral Care Referral From _x__ Patient ___ Family ___ Nurse ___ Physician ___ Medical Assistant Ob Gyn ___ Product Lister ___ Other (describe below) Sacrament/Intervention _x__ Active listening ___ Anointing ___ Episcopalian ___ Bereavement ___ Communion _x__ Dee Dee exploration ___ ___ Life review _x__ Prayer ___ Reconciliation ___ Sacrament of Sick ___ Supportive presence ___ Wedding ___ Other (describe below) Pastoral Comments patient is welcoming and explains that she is expecting to go home this afternoon; pt states that she is feeling pretty good right now and is thankful for good news after the tests were completed; pt is member of the [employer]agogue dee dee and states that dee dee and prayer are helpful to her; pt has a at home that is helpful to her; no other concerns
--- NOTE | 2023-09-20 15:27 | CASEMGMT ---
Patient has order for discharge. RN CM in to discuss needs at discharge. Patient denies needs or help at discharge. Patient had no further questions or concerns.
== END 2023-09-20 16:19 | disposition home or self-care (01) | DRG 310 ==
LOC: ED 05:41 → PCU 05:56
PROVIDERS: Admitting Provider Family Medicine; Emergency Provider Emergency Medicine; PCP Family Medicine; Visit Provider Family Medicine
DX: I48.0 Paroxysmal atrial fibrillation (principal); G20.A1 Parkinson's disease without dyskinesia, without mention of fluctuations; I35.1 Nonrheumatic aortic (valve) insufficiency; G47.33 Obstructive sleep apnea (adult) (pediatric); R00.1 Bradycardia, unspecified; I95.2 Hypotension due to drugs; T42.8X5A Adverse effect of antiparkinsonism drugs and other central muscle-tone depressants, initial encounter; Z79.01 Long term (current) use of anticoagulants; Z79.899 Other long term (current) drug therapy; Z91.199 Patient's noncompliance with other medical treatment and regimen due to unspecified reason
CPT/HCPCS: 36415; 71045; 80048; 80053; 83735; 84443; 84484; 85025; 93005; 93306; 94660; 94668; 99285; J7030; J7040; A4216

== ENCOUNTER → 2023-09-29 | Outpatient (CLI) | payer MEDICARE, OTHER, SELFPAY | END | disposition home or self-care (01) | LOC: PSN 12:11 | PROVIDERS: PCP Family Medicine; Referring Provider Physician Assistant Medical; Visit Provider Physician Assistant Medical | DX: I48.0 Paroxysmal atrial fibrillation (principal) | CPT/HCPCS: 93225; 93226 ==

== ENCOUNTER 2023-10-20 09:20 | Outpatient (CLI) | payer MEDICARE, OTHER, SELFPAY ==
--- NOTE | 2023-10-20 09:20 | STE_ITS ---
Reason For Study: PAF Stress Results Protocol: Valentin Protocol Maximum Predicted HR: 154 bpm Target HR: 131 bpm % Maximum Predicted HR: 89 % DurationHeart Rate Stage (mm:ss) (bpm) BP BASELINE 82 110/74 STAGE 1 3:00 115 120/70 STAGE 2 1:31 137 130/80 RECOVERY 83 140/70 Stress Duration: 4:31 mm:ss Maximum Stress HR: 137 bpm Baseline Echocardiogram Findings Stress Echo Wall motion Data Resting WM Intermediate WM Stress WM ECHO/Stress Test Echo w/o Contrast Interpretation Summary Exercise stress echo. 68-year-old lady with a history of paroxysmal atrial fibrillation. Rest EKG demonstrates sinus rhythm with a rate of 74 bpm normal intervals are n oted. Resting blood pressure is 110/74 mmHg. The patient exercised according to regular Valentin navdeep col for 4 minutes and 30 seconds. The maximum heart rate attained was 148 bpm which was 96% of max im pacted heart rate the maximum workload attained was 7 metabolic equivalents. At rest there were no ST or T wave changes noted suggest ischemia and at peak exercise upsloping ST changes were noted we did not meet the criteria for ischemia. No clinical angina was noted. Resting blood pressure was 110/74 peak blood pressure was 148/70 mmHg. This was with adequate blood pressure response to exe rcise. Stress echocardiogram. Resting echocardiogram demonstrated preserved ventricular systolic function est imated at 60% no wall motion abnormalities were noted thickened mitral valves were present. The patie nt exercised according to regular Valentin protocol and at peak exercise there was thickening o f all mcgrath reduction of the ventricular cavity size peaking of ejection fraction at 70%. No wall mot ion abnormalities were noted. Conclusion: Exercise stress echo with no EKG or echocardiographic criteria for ischemia at a moderate workload. Preserved ejection fraction at rest and with exercise. No atrial fibrillation noted. Ordering Physician: Kenya Hernandez Referring Physician: Kenya Hernandez Performed By: Ruma Rosales RCS
== END 2023-10-20 23:59 | disposition home or self-care (01) ==
LOC: CVS 09:20
PROVIDERS: PCP Family Medicine; Referring Provider Physician Assistant Medical; Visit Provider Physician Assistant Medical
DX: I48.0 Paroxysmal atrial fibrillation (principal); R94.31 Abnormal electrocardiogram [ECG] [EKG]
CPT/HCPCS: 93017; 93350

== ENCOUNTER 2024-08-13 03:14 | Emergency (ER) | payer MEDICARE, OTHER, SELFPAY ==
[2024-08-13 03:16] VITALS: BP 180/92; PULSE 90; RESP 20; TEMP 36.5; O2SAT 99; BMI 19.5
[2024-08-13 03:19] VITALS: O2SAT 98
[2024-08-13 04:08] VITALS: PULSE 89; RESP 15
[2024-08-13 04:10] LABS: Hematocrit 42.3 % (37-47); Hemoglobin 14.4 g/dL (12.0-15.0); Immature Granulocytes Count 0.010 X10^3/uL (0.0-0.0); Mean Corp Hgb Conc 34.0 g/dL (32-36); Mean Corpuscular Volume 87.0 fL (81-99); Mean Platelet Vol. 11.2 fl (6.2-12.0); NRBC Flagged by Analyzer 0 % (0-5); Platelet Count 252 K/mm3 (150-450); RBC Distribution Width CV 13.3 % (11.6-14.6); RBC Distribution Width SD 42.0 fl (35.1-43.9); Red Blood Count 4.86 M/mm3 (4.2-5.4); White Blood Count 5.7 K/mm3 (4.4-11.0)
[2024-08-13] MEDS: Lorazepam 2 MG/ML WCH Syringe 0.5 MG IV (04:36)
[2024-08-13 04:49] LABS: Anion Gap 10 (5-15); BUN 10 mg/dL (4-19); BUN/Creat Ratio 15.5 RATIO (10-20); Calcium,Total 9.7 mg/dL (7.6-11.0); Carbon Dioxide 26.7 mmol/L (21.0-32.0); Chloride 104 mmol/L (98-108); Estimated Creatinine Clearance 59.36 ml/min (50-250); Glucose 105 mg/dL (70-99); Magnesium 2.4 mg/dL (1.5-2.2); Potassium 3.8 mmol/L (3.3-5.1)
[2024-08-13 04:59] LABS: Pro- Brain NATRIURETIC PEPTIDE < 36 pg/mL (<=900)
[2024-08-13 05:15] VITALS: BP 160/65; PULSE 90; RESP 19; O2SAT 97
[2024-08-13 05:42] VITALS: BP 164/71; PULSE 88; RESP 18; TEMP 37.1; O2SAT 98
[2024-08-13] MEDS: Albuterol Sulfate 8 gm Inhaler (60 puffs) 2 PUFF INHALATION (05:43)
== END 2024-08-13 06:05 | disposition home or self-care (01) ==
PROVIDERS: Emergency Provider Emergency Medicine; PCP Family Medicine; Visit Provider Emergency Medicine
DX: R06.00 Dyspnea, unspecified (principal); G20.A1 Parkinson's disease without dyskinesia, without mention of fluctuations; I48.0 Paroxysmal atrial fibrillation; Z79.01 Long term (current) use of anticoagulants; Z79.899 Other long term (current) drug therapy
CPT/HCPCS: 71046; 80048; 83735; 83880; 85025; 93005; 94640; 96374; 99282; A4216